=== PATIENT | male | born 1965 | race Caucasian/White ===

== ENCOUNTER → 2018-05-13 08:46 | Outpatient (CLI) | payer OTHER, SELFPAY ==
[2018-05-13 11:29] LABS: AST(SGOT) 30 U/L (15-37); Alanine Aminotransfer ALT/SGPT 68 U/L (16-61); Alkaline Phosphatase 60 U/L (45-117); Bilirubin, Direct 0.19 mg/dL (0.00-0.30); Cholesterol 160 mg/dL (200); Globulin 3.8 g/dL (2.2-4.2); High Density Lipoprotein 33 mg/dL; Protein, Total 7.8 g/dL (6.4-8.2); Triglycerides 116 mg/dL; Very Low Density Lipoprotein 23 mg/dL (5-40)
[2018-05-13 14:24] LABS: Thyroid Stim Hormone (TSH) 0.42 uIU/mL (0.358-3.74)
--- OUTSIDE RECORDS SUMMARY | 2018-06-24 21:43 | XMS RPT_ITS | Clinical Summary ---
:1965 Author Organization [facility], [facility] Address [address] [place] [id number] Phone Care Team Providers Name Role Phone MD Betsy, Oscar Lopez Unavailable [ ] Conditions or Problems Problem Name Problem Onset Status Entry Provider Comment Standard Annotate Code Date Date Description Dizziness R42 Active Oscar Lopez Dizziness and and (ICD-10-CM MD Betsy giddiness giddiness ) BODY MASS Z68.32 Active Oscar Lopez Body mass index INDEX (ICD-10-CM 07/07 07/07 MD Betsy (BMI) 32.0-32.9, 32.0-32.9 ) adult ADULT Seborrheic 747139503 Inactive Jd A Inflamed keratosis (SNOMED 07/28 08/[address] CT) DO keratosis Seborrheic 749179197 Inactive Jd A Inflamed keratosis (SNOMED 07/28 08/[address] Jalil [address]) DO keratosis Tobacco use 655972989 Active Jd A Tobacco user (SNOMED 07/28 07/[address]) DO Need for 783769800 Inactive Jd A Procedure needed prophylactic (SNOMED 07/28 07/[address]) DO against streptococcu s pneumoniae (Pneumococcu s) Screening, 797257981 Active Jd A Screening for colon cancer (SNOMED 07/11 07/[address]) DO neoplasm of colon Tendinitis, 889978004 Active Jd A Tendinitis of left hand (SNOMED 07/10 07/[address]) DO Skin lesion, 74371813 Active Jd A Disorder of skin abnormal (SNOMED 07/10 07/[address] [facility] [address]) DO Hypothyroidi 97762443 Active Jd A Iatrogenic sm, (SNOMED 07/10 07/10 [facility] hypothyroidism iatrogenic CT) DO ENCOUNTER 450138811 Inactive Yeny A Long-term drug FOR (SNOMED 09/15 09/15 Amanda RN therapy LONG-TERM CT) USE OF OTHER MEDICATIONS LONG-TERM 240468677 Active Yeny A Long-term drug (CURRENT) (SNOMED 07/07 07/07 Amanda RN therapy USE OF OTHER CT) MEDICATIONS ABNORMAL 778065559 Inactive Yeny A Electrocardiogra ELECTROCARDI (SNOMED 09/15 09/15 Amanda RN m abnormal OGRAM CT) Body Mass 037059467 Inactive Yeny A Finding of body Index (SNOMED 11/06 11/06 Amanda RN mass index 34.0-34.9, CT) adult Snoring 42865288 Active Jd A Snoring (SNOMED 06/24 06/[address] [facility] [address]) DO 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 (SNOMED M CT) FABIANA Yadav LONG-TERM 165201271 Inactive Shannon Long-term drug (CURRENT) (SNOMED 07/07 07/07 M therapy USE OF OTHER CT) Vicenta MCMAHON PA-C Family 111872221 Active Shannon FH: Raised blood History of (SNOMED 07/[address]) Vicenta booth PA-C Family 874059822 Active Shannon FH: Hypertension History of (SNOMED 07/[address]) FABIANA Yadav BODY MASS Z68.33 Inactive Shannon Body mass index INDEX (ICD-10-CM 07/07 07/07 M (BMI) 33.0-33.9, 33.0-33.9 ) Vicenta adult ADULT FABIANA Body Mass 569760279 Removed Clayton S Finding of body Index (SNOMED 11/06 11/06 MD Betsy mass index 34.0-34.9, CT) adult ENCOUNTER 620020975 Removed Precious S Long-term drug FOR (SNOMED 09/15 09/15 Pravin CONKLIN therapy LONG-TERM CT) USE OF OTHER MEDICATIONS ABNORMAL 497855545 Removed Precious S Electrocardiogra ELECTROCARDI (SNOMED 09/15 09/15 Pravin CONKLIN m abnormal OGRAM CT) PALPITATIONS 43754973 Active Precious S Palpitations (SNOMED 09/15 09/[address]) HYPERTENSION 0694531 9684/0 Active Precious S Benign essential , BENIGN (SNOMED 09/15 09/15 Pravin CONKLIN hypertension ESSENTIAL CT) HYPERLIPIDEM 65903062 Active Precious S Hyperlipidemia IA (SNOMED 09/15 09/[address]) Medications Medication Instructions Start Stop Generic Name NDC Provider Date Date CRESTOR 20 MG TABS One tablet by ROSUVASTATIN CALCIUM [id number] Oscar S mouth daily 08/12 MD Betsy HYDROCHLOROTHIAZIDE One tablet by HYDROCHLOROTHIAZIDE 31219120618 Oscar S 12.5 MG TABS mouth daily MD Betsy LISINOPRIL 20 MG One tablet by LISINOPRIL 91806968951 Clayton S TABS mouth daily 11/06 MD Betsy HYDROCHLOROTHIAZIDE One tablet by HYDROCHLOROTHIAZIDE 74012357317 Oscar S 25 MG TABS mouth daily MD Betsy LEVOTHYROXINE SODIUM One tablet by LEVOTHYROXINE SODIUM 24830166064 Jd A 137 MCG TABS mouth daily 03/03 [facility] CRESTOR 20 MG TABS One tablet by ROSUVASTATIN CALCIUM 54883394182 Shannon mouth daily 08/12 Real Yadav PA-C LISINOPRIL 20 MG One tablet by LISINOPRIL 02708342906 Clayton S TABS mouth daily 11/06 MD Betsy HYDROCHLOROTHIAZIDE One tablet by HYDROCHLOROTHIAZIDE 88469224072 Oscar S 25 MG TABS mouth daily MD Betsy LISINOPRIL 10 MG One tablet by LISINOPRIL 31258348524 Clayton S TABS mouth daily 11/06 MD Betsy INDERAL LA [id number] 160 mg 1 PROPRANOLOL HCL 99408313389 Clayton S capsule by 07/23 [id number] MD Betsy mouth daily CRESTOR 20 MG TABS One tablet by Clayton S (ROSUVASTATIN mouth daily 07/23 MD Betsy CALCIUM) LISINOPRIL 5 MG TABS One tablet by LISINOPRIL 13687116017 Oscar S mouth daily 11/21 MD Betsy LISINOPRIL 5 MG TABS One tablet by 2013/ LISINOPRIL 17086926428 Oscar S mouth daily 11/21 11/06 MD Betsy INDERAL LA 80 MG Two tablet by PROPRANOLOL HCL 94709870656 Precious S [id number] mouth daily 09/15 Pravin CONKLIN LISINOPRIL 5 MG TABS One tablet by LISINOPRIL 88488158532 Precious S mouth daily 09/15 Pravin CONKLIN LISINOPRIL 5 MG TABS One tablet by 2010/ LISINOPRIL 87927463013 Oscar S mouth daily 09/15 05/22 MD Betsy CRESTOR 10 MG TABS One tablet by ROSUVASTATIN CALCIUM 18081681862 Harini M mouth daily 02/23 [facility]er LISINOPRIL 2.5 MG One tablet by LISINOPRIL 65492257037 Yeny A TABS mouth daily 11/14 Amanda CONKLIN INDERAL LA [id number] 160 mg 1 2013/ PROPRANOLOL HCL 91693534174 Clayton S capsule by 07/23 11/06 [id number] MD Betsy mouth daily LEVOTHYROXINE SODIUM Patient to LEVOTHYROXINE SODIUM 45197021679 Clayton S 100 MCG TABS call in with 03/03 MD Betsy actual dose LEVOTHYROXINE SODIUM One tablet by LEVOTHYROXINE SODIUM 26396785927 Safia M 150 MCG TABS mouth daily 03/03 KATERIN Brush LISINOPRIL 20 MG One tablet by LISINOPRIL 97512601095 Shannon TABS mouth daily 11/06 M FABIANA Yadav HYDROCHLOROTHIAZIDE One tablet by HYDROCHLOROTHIAZIDE 91598308429 Shannon 25 MG TABS mouth daily M FABIANA Yadav Medications Administered No information available. Allergies, Adverse Reactions, Alerts Allergy Name Reaction Description Start Date Severity Status Provider BEE STINGS Moderate Active Shannon Yadav PA-C STATINS elevated liver enzymes Critical Active Precious Costello RN PENICILLIN Critical Active Precious Costello RN Results Date Name Value Unit Range Flag Description Replaced Document: [facility]mark ECG Observations EKG INTERP Sinus Rhythm WITHIN electrocardiogram interpretation NORMAL LIMITS EKG T AXIS 10 deg T wave axis, electrocardiogram EKG QRS AXIS -2 deg QRS axis, electrocardiogram EKG PWAVAXIS 38 deg P wave axis, electrocardiogram QRS INTERVAL 94 ms QRS duration, electrocardiogram QT INTERVAL new path ms QT interval, electrocardiogram [place] INTERVAL 154 ms [place] interval, electrocardiogram EKGHRTRATE 81 BPM heart rate on electrocardiogram Office Visit: [facility] CARD RSK GRP B cardiac risk group Lab Report: T4 Total, Thyroxin T4, TOTAL 11.3 ug/dL 4.5-12.1 thyroxine, serum, total Lab Report: Thyroid Peroxidase AB THY MICRO AB 7 0-34 thyroid microsomal antibody Lab Report: Thyroid Stim Immunoglob ZZ-GE-unk 37 % 0-139 GE use only - for LinkLogic import when terms are not otherwise specified Office Visit: [facility] CHD 10YR RSK 7 % General cardiovascular disease 10Y risk [#] Velva.D'Agostcecilia Lab Report: Thyroid Stim Hormone (TSH) TSH 0.13 u[iU]/mL 0.358-3.74 L thyroid stimulating hormone, serum Office Visit: Skin Lesion DIET HEAVY ANTI[employer]OR [employer] yes Dietary management education, guidance, and counseling (procedure) ORALTOBACUSE Current Tobacco smoking status NHIS SMOK STATUS Current every day smoker Tobacco use [facility] Nurse Visit: Hemoccult Results (negative) HEMOCCULT 3 negative Hemoglobin.gastrointestinal [Presence] in Stool --3rd specimen HEMOCCULT 2 negative Hemoglobin.gastrointestinal [Presence] in Stool --2nd specimen HEMOCCULT negative Hemoglobin.gastrointestinal [Presence] in Stool Rx Refill: eRx Request for Levothyroxine Sod 137mcg Tab [facility]_RR [id number]`Levothyroxine Sod B e-scripts 137mcg Tab```90 Each``TAKE ONE TABLET BY MOUTH messenger DAILY```0`05/20/2015`No date sent`[facility]*`[id number]``LEVOTHYROXINE request SODIUM 137 MCG TABLET Quantity: 90 Tablet Instructions: TAKE ONE TABLET BY MOUTH DAILY Office Visit MEDS REVIEW Done Documentation of current medications (procedure) Lab Report: Basic Metabolic Profile (BMP) ANION GAP 12 5-15 anion gap, serum CO2 27.0 mmol/L 21.0-32.0 carbon dioxide, venous blood CHLORIDE 99 mmol/L 98-107 chloride, serum POTASSIUM 3.4 mmol/L 3.5-5.1 L potassium, serum SODIUM 138 mmol/L 136-145 sodium, serum CALCIUM 8.9 mg/dL 8.5-10.1 calcium, serum BUN/CREAT 20.9 RATIO 10-20 H urea nitrogen/creatinine ratio, serum GFRAA 119 mL/min >60 Glomerular Filtration rate GFR EST 98 mL/min >60 estimated glomerular filtration rate CREATININE 0.86 mg/dL 0.70-1.30 creatinine, serum BUN 18 mg/dL 7-18 urea nitrogen, blood GLUCOSE SER 91 mg/dL 70-110 blood glucose Lab Report: Liver Profile BILI DIRECT 0.17 mg/dL 0.00-0.30 bilirubin, serum, direct BILI TOTAL 0.80 mg/dL 0.20-1.00 bilirubin, serum, total SGPT (ALT) 59 U/L 12-78 alanine aminotransferase (SGPT), serum ALK PHOS 59 U/L 45-117 alkaline phosphatase, serum SGOT (AST) 28 U/L 15-37 aspartate aminotransferase (SGOT), serum GLOBULIN TOT 4.0 g/dL 2.2-4.2 globulins, serum, total ALBUMIN 4.1 g/dL 3.4-5.0 albumin, serum PROTEIN, TOT 8.1 g/dL 6.4-8.2 protein, total, serum Lab Report: Lipid Profile VLDL 36 mg/dL 5-40 very low density lipoproteins LDL 145 mg/dL 0-130 H Cholesterol in LDL [Mass/volume] in Serum or Plasma HDL 38 mg/dL L Cholesterol in HDL [Mass/volume] in Serum or Plasma TRIGLYCRDES 179 mg/dL Triglyceride [Mass/volume] in Serum or Plasma CHOLESTEROL 219 mg/dL 200 H Cholesterol [Mass/volume] in Serum or Plasma Plan of Care Type Date Detail Appointment 08:45 AM Oscar Meyer MD, [address], [address], [place], [address], Appointment 08:30 AM Floyd Nunez NP, [address], [address], [place], [address], Referral Surgery Referral SHIRA PrestonF, [address] [place], [address] Referral Surgery Referral BREANNA Preston, [address] [place], [address] Referral ENT referral [facility], [address] [place] [address], [place], [address] Referral ENT referral [facility], [address] [facility], [place], [address] Pending order JHR Pending order *BMP Pending order *Lipid Profile CC PCP Pending order *Hepatic Function Panel Pending order *Hepatic Function Panel Pending order *Lipid Profile CC PCP Pending order 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 order Follow Up Appt 1 year Pending order *BMP Pending order *Hepatic Function Panel Pending order *Lipid Profile CC PCP Pending order *Hepatic Function Panel Pending order *Lipid Profile CC PCP Pending order *TSH Pending order *T4 free Pending order Administration Immunization >=8 years of age Pending order Excision Benign Lesion Trunk/Arm/Leg 1.1-2.0 cm Pending order *TSH Pending order 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 order Follow Up Appt 1 year Pending order *Hepatic Function Panel Pending order *Lipid Profile CC PCP Pending order *Hepatic Function Panel Pending order *Lipid Profile CC PCP Pending order 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 order Follow Up Appt 6 months Pending order US Thyroid (Soft tissue neck) Pending order *TSH Pending order *ATAB - Thyroglobulin Antibody Pending order *T4 free Pending order *T4 (Total) Pending order *T3-Total Pending order *TSIMM TSI Thyroid Stimulating Immunglob Pending order Thyroid Panel (T-3/T-4/TSH) Pending order *BMP Pending order MMM Pending order Follow Up Appt 6 weeks Pending order Follow Up Appt Other Pending order *Hepatic Function Panel Pending order *Lipid Profile CC PCP Pending order MMM Pending order Follow Up Appt 6 weeks Pending order MMM Pending order Follow Up Appt 6 months Pending order *Lipid Profile CC PCP Pending Order excluded from report: Pending order *Hepatic Function Panel Pending Order excluded from report: Pending order *Hepatic Function Panel Pending order *Lipid Profile CC PCP Pending order *Hepatic Function Panel Pending order *Lipid Profile CC PCP Pending order Follow Up Appt 1 year Pending order *Lipid Profile Pending order *Hepatic Function Panel Pending order Follow Up Appt 6 months Pending order *Lipid Profile Pending order *Hepatic Function Panel Patient education LOW%20FAT%20DIET Patient education HYPERLIPIDEMIA, HYPERTENSION%2C%20AMBULATORY%20CARE Procedures Code Procedure Name Date Entry Date 666-06 *BMP 93597-6 *Lipid Profile CC PCP 0788-1 *Hepatic Function Panel F/U PLATE TAKE OUT WORKER PLATE TAKE OUT WORKER FUA 1 year Follow Up Appt 1 year 0788-1 *Hepatic Function Panel 23517-5 *Lipid Profile CC PCP 0667-1 *BMP 3016-3 *TSH F/U PLATE TAKE OUT WORKER PLATE TAKE OUT WORKER FUA 1 year Follow Up Appt 1 year [id number] SNOMED-CT: 270671253614113 Current Medications Documented 0788-1 *Hepatic Function Panel 28405-7 *Lipid Profile CC PCP 88459-0 *Lipid Profile CC PCP 0788-1 *Hepatic Function Panel FUA 6 months Follow Up Appt 6 months F/U PLATE TAKE OUT WORKER PLATE TAKE OUT WORKER [id number] SNOMED-CT: 015016007 Smoking Cessation Counseling SCT-[id number] SNOMED-CT: 751597411347526 Current Medications Documented CPT-37812 US Thyroid (Soft tissue neck) 3016-3 *TSH 3024-7 *T4 free 3026-2 *T4 (Total) 3053-6 *T3-Total 8098-6 *ATAB - Thyroglobulin Antibody 81520-5 *TSIMM TSI Thyroid Stimulating Immunglob F/U Appt Follow Up Appt Other F/U MMM MMM FUA 6 weeks Follow Up Appt 6 weeks CPT-05565 Thyroid Panel (T-3/T-4/TSH) 0667-1 *BMP F/U MMM MMM FUA 6 weeks Follow Up Appt 6 weeks 0788-1 *Hepatic Function Panel 04998-4 *Lipid Profile CC PCP F/U MMM MMM FUA 6 months Follow Up Appt 6 months 45594-2 *Lipid Profile CC PCP Order excluded from report: 0788-1 *Hepatic Function Panel Order excluded from report: 0788-1 *Hepatic Function Panel 37898-7 *Lipid Profile CC PCP FUA 1 year Follow Up Appt 1 year 0788-1 *Hepatic Function Panel 93701-7 *Lipid Profile 0788-1 *Hepatic Function Panel 55975-8 *Lipid Profile FUA 6 months Follow Up Appt 6 months Vital Signs Date Name Value Unit Description BMI (Body Mass Index) 32.63 kg/m2 Body Mass Index [Ratio] BP Diastolic 80 mm[Hg] blood pressure, diastolic - 8462-4 BP Systolic 120 mm[Hg] blood pressure, systolic - 8480-6 BSA (Body Surface Area) 2.16 body surface area Heart Rate 88 /min pulse rate E&M - 8867-4 Respiratory Rate 20 /min respiratory rate E&M - 9279-1 Weight Measured 221.0 [lb_av] weight E&M - 3141-9 Body Temperature 98.1 [degF] temperature E&M BP Diastolic 88 mm[Hg] blood pressure, diastolic, supine BP Diastolic 90 mm[Hg] blood pressure, diastolic, standing BP Systolic 142 mm[Hg] blood pressure, systolic, supine E&M BP Systolic 142 mm[Hg] blood pressure, systolic, standing Height 69 [in_us] height E&M - 8302-2 Heart Rate 80 /min pulse rate, standing
--- OUTSIDE RECORDS SUMMARY | 2018-06-24 21:43 | XMS RPT_ITS | Clinical Summary ---
:1965 Author Organization [facility], [facility] Address [address] [place] [address] Phone Care Team Providers Name Role Phone MD Betsy, Oscar Lopez Unavailable [ ] Conditions or Problems Problem Name Problem Onset Status Entry Provider Comment Standard Annotate Code Date Date Description Dizziness 049861943 Active Oscar Lopez Dizziness and and (SNOMED MD Betsy giddiness giddiness CT) BODY MASS Z68.32 Active Oscar Lopez Body mass index INDEX (ICD-10-CM 07/07 07/07 MD Betsy (BMI) 32.0-32.9, 32.0-32.9 ) adult ADULT Seborrheic 896434142 Inactive Jd A Inflamed keratosis (SNOMED 07/28 08/[address] Jal[address] CT) DO keratosis Seborrheic 210273365 Inactive Jd A Inflamed keratosis (SNOMED 07/28 08/01 Jalil [address]) DO keratosis Tobacco use 351577278 Active Jd A Tobacco user (SNOMED 07/28 07/[address]) DO Need for 694493122 Inactive Jd A Procedure needed prophylactic (SNOMED 07/28 07/[address]) DO against streptococcu s pneumoniae (Pneumococcu s) Screening, 518183079 Active Jd A Screening for colon cancer (SNOMED 07/11 07/[address]) DO neoplasm of colon Tendinitis, 216108860 Active Jd A Tendinitis of left hand (SNOMED 07/10 07/[address]) DO Skin lesion, 90190875 Active Jd A Disorder of skin abnormal (SNOMED 07/10 07/10 [facility] CT) DO Hypothyroidi 29046468 Active Jd A Iatrogenic sm, (SNOMED 07/10 07/10 [facility] hypothyroidism iatrogenic CT) DO ENCOUNTER 087504335 Inactive Yeny A Long-term drug FOR (SNOMED 09/15 09/15 Amanda RN therapy LONG-TERM CT) USE OF OTHER MEDICATIONS LONG-TERM 393305084 Active Yeny A Long-term drug (CURRENT) (SNOMED 07/07 07/07 Amanda RN therapy USE OF OTHER CT) MEDICATIONS ABNORMAL 461122944 Inactive Yeny A Electrocardiogra ELECTROCARDI (SNOMED 09/15 09/15 Amanda RN m abnormal OGRAM CT) Body Mass 421721681 Inactive Yeny A Finding of body Index (SNOMED 11/06 11/06 Amanda RN mass index 34.0-34.9, CT) adult Snoring 82803811 Active Jd A Snoring (SNOMED 06/24 06/24 [facility] CT) DO 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 (SNOMED M CT) FBAIANA Yadav LONG-TERM 174924471 Inactive Shannon Long-term drug (CURRENT) (SNOMED 07/07 07/07 M therapy USE OF OTHER CT) Vicenta MCMAHON PA-C Family 393975792 Active Shannon FH: Raised blood History of (SNOMED 07/[address]) Vicenta booth PA-C Family 052853011 Active Shannon FH: Hypertension History of (SNOMED 07/[address]) FABIANA Yadav BODY MASS Z68.33 Inactive Shannon Body mass index INDEX (ICD-10-CM 07/07 07/07 M (BMI) 33.0-33.9, 33.0-33.9 ) Vicenta adult ADULT FABIANA Body Mass 523135048 Removed Oscar S Finding of body Index (SNOMED 11/06 11/06 MD Betsy mass index 34.0-34.9, CT) adult ENCOUNTER 332522455 Removed Precious S Long-term drug FOR (SNOMED 09/15 09/15 Pravin CONKLIN therapy LONG-TERM CT) USE OF OTHER MEDICATIONS ABNORMAL 305592900 Removed Precious S Electrocardiogra ELECTROCARDI (SNOMED 09/15 09/15 Pravin CONKLIN m abnormal OGRAM CT) PALPITATIONS 40138567 Active Precious S Palpitations (SNOMED 09/15 09/[address]) HYPERTENSION 7391475 8180/0 Active Precious S Benign essential , BENIGN (SNOMED 09/15 09/15 Pravin CONKLIN hypertension ESSENTIAL CT) HYPERLIPIDEM 11317352 Active Precious S Hyperlipidemia IA (SNOMED 09/15 09/[address]) Medications Medication Instructions Start Stop Generic Name NDC Provider Date Date CRESTOR 20 MG TABS One tablet by ROSUVASTATIN CALCIUM 81556195419 Oscar S mouth daily 08/12 MD Betsy HYDROCHLOROTHIAZIDE One tablet by HYDROCHLOROTHIAZIDE 76689841017 Normandy S 12.5 MG TABS mouth daily MD Betsy LISINOPRIL 20 MG One tablet by LISINOPRIL 21933596098 Oscar S TABS mouth daily 11/06 MD Betsy HYDROCHLOROTHIAZIDE One tablet by HYDROCHLOROTHIAZIDE 19939809454 Normandy S 25 MG TABS mouth daily MD Betsy LEVOTHYROXINE SODIUM One tablet by LEVOTHYROXINE SODIUM 07548444845 Jd A 137 MCG TABS mouth daily 03/03 [facility] CRESTOR 20 MG TABS One tablet by ROSUVASTATIN CALCIUM 85391729442 Shannon mouth daily 08/12 Real Yadav PA-C LISINOPRIL 20 MG One tablet by LISINOPRIL 16197990083 Normandy S TABS mouth daily 11/06 MD Betsy HYDROCHLOROTHIAZIDE One tablet by HYDROCHLOROTHIAZIDE 91053892636 Oscar S 25 MG TABS mouth daily MD Betsy LISINOPRIL 10 MG One tablet by LISINOPRIL 18585365139 Oscar S TABS mouth daily 11/06 MD Betsy INDERAL LA [id number] 160 mg 1 PROPRANOLOL HCL 44783855903 Oscar S capsule by 07/23 [id number] MD Betsy mouth daily CRESTOR 20 MG TABS One tablet by Normandy S (ROSUVASTATIN mouth daily 07/23 MD Betsy CALCIUM) LISINOPRIL 5 MG TABS One tablet by LISINOPRIL 20413946205 Normandy S mouth daily 11/21 MD Betsy LISINOPRIL 5 MG TABS One tablet by 2013/ LISINOPRIL 07778406965 Oscar S mouth daily 11/21 11/06 MD Betsy INDERAL LA 80 MG Two tablet by PROPRANOLOL HCL 03119118810 Precious S [id number] mouth daily 09/15 Pravin CONKLIN LISINOPRIL 5 MG TABS One tablet by LISINOPRIL 22706339888 Precious S mouth daily 09/15 Pravin CONKLIN LISINOPRIL 5 MG TABS One tablet by 2010/ LISINOPRIL 79847226861 Normandy S mouth daily 09/15 05/22 MD Betsy CRESTOR 10 MG TABS One tablet by ROSUVASTATIN CALCIUM 91350497023 Harini M mouth daily 02/23 Sims LISINOPRIL 2.5 MG One tablet by LISINOPRIL 89302951011 Yeny A TABS mouth daily 11/14 Amanda CONKLIN INDERAL LA [id number] 160 mg 1 2013/ PROPRANOLOL HCL 87930228204 Normandy S capsule by 07/23 11/06 [id number] MD Betsy mouth daily LEVOTHYROXINE SODIUM Patient to LEVOTHYROXINE SODIUM 64889427568 Normandy S 100 MCG TABS call in with 03/03 MD Betsy actual dose LEVOTHYROXINE SODIUM One tablet by LEVOTHYROXINE SODIUM 50823887625 Safia M 150 MCG TABS mouth daily 03/03 KATERIN Brush LISINOPRIL 20 MG One tablet by LISINOPRIL 64393733434 Shannon TABS mouth daily 11/06 M FABIANA Yadav HYDROCHLOROTHIAZIDE One tablet by HYDROCHLOROTHIAZIDE 70245575821 Shannon 25 MG TABS mouth daily M [...] INTERVAL new path ms QT interval, electrocardiogram HI INTERVAL 154 ms HI interval, electrocardiogram EKGHRTRATE 81 BPM heart rate on electrocardiogram Office Visit: [facility] CARD RSK GRP B cardiac risk group Lab Report: T4 Total, Thyroxin T4, TOTAL 11.3 ug/dL 4.5-12.1 thyroxine, serum, total Lab Report: Thyroid Peroxidase AB THY MICRO AB 7 0-34 thyroid microsomal antibody Lab Report: Thyroid Stim Immunoglob ZZ-GE-unk 37 % 0-139 GE use only - for LinkLogic import when terms are not otherwise specified Office Visit: [facility] CHD 10YR RSK 7 % General cardiovascular disease 10Y risk [#] [place].D'Agostcecilia Lab Report: Thyroid Stim Hormone (TSH) TSH 0.13 u[iU]/mL 0.358-3.74 L thyroid stimulating hormone, serum Office Visit: Skin Lesion DIET CHILD CARE yes Dietary management education, guidance, and counseling (procedure) ORALTOBACUSE Current Tobacco smoking status NHIS SMOK STATUS Current every day smoker Tobacco use [facility] Nurse Visit: Hemoccult Results (negative) HEMOCCULT 3 negative Hemoglobin.gastrointestinal [Presence] in Stool --3rd specimen HEMOCCULT 2 negative Hemoglobin.gastrointestinal [Presence] in Stool --2nd specimen HEMOCCULT negative Hemoglobin.gastrointestinal [Presence] in Stool Rx Refill: eRx Request for Levothyroxine Sod 137mcg Tab [facility]_RR [id number]`Levothyroxine Sod B e-scripts 137mcg Tab```90 Each``TAKE ONE TABLET BY MOUTH messenger DAILY```0`05/20/2015`No date sent`[facility] refill Pharm[facility]*`[id number]``LEVOTHYROXINE request SODIUM 137 MCG TABLET Quantity: 90 Tablet Instructions: TAKE ONE TABLET BY MOUTH DAILY Office Visit MEDS REVIEW Done Documentation of current medications (procedure) [facility] risk [facility] Lab Report: Basic Metabolic Profile (BMP) ANION [...] Plan of Care Type Date Detail Appointment 08:30 AM Floyd Nunez CHARRER, [address] [place], [address], [place], [address], Referral Surgery Referral BREANNA Preston, [address] [place], [address] Referral Surgery Referral BREANNA Preston, [address] [place], [address] Referral ENT referral [facility], [address] [place] [address], [address] Referral ENT referral [facility], [address] [place] [address], [place], [address] Pending order JHR Pending order *BMP Pending order *Lipid Profile CC PCP Pending order *Hepatic Function Panel Pending order *Hepatic Function Panel Pending order *Lipid Profile CC PCP Pending order 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 order Follow Up Appt 1 year Pending order *BMP Pending order *Hepatic Function Panel Pending order *Lipid Profile CC PCP Pending order *Hepatic Function Panel Pending order *Lipid Profile CC PCP Pending order *TSH Pending order *T4 free Pending order Administration Immunization >=8 years of age Pending order Excision Benign Lesion Trunk/Arm/Leg 1.1-2.0 cm Pending order *TSH Pending order 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 order Follow Up Appt 1 year Pending order *Hepatic Function Panel Pending order *Lipid Profile CC PCP Pending order *Hepatic Function Panel Pending order *Lipid Profile CC PCP Pending order 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 order Follow Up Appt 6 months [...] Procedures Code Procedure Name Date Entry Date 0667-1 *BMP 50165-5 *Lipid Profile CC PCP 0788-1 *Hepatic Function Panel F/U 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 FUA 1 year Follow Up Appt 1 year 0788-1 *Hepatic Function Panel 36796-7 *Lipid Profile CC PCP 0667-1 *BMP 3016-3 *TSH F/U 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 FUA 1 year Follow Up Appt 1 year SCT-[id number] SNOMED-CT: 972971711106731 Current Medications Documented 0788-1 *Hepatic Function Panel 53770-3 *Lipid Profile CC PCP 72462-3 *Lipid Profile CC PCP 0788-1 *Hepatic Function Panel FUA 6 months Follow Up Appt 6 months F/U 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 SCT-[id number] SNOMED-CT: 907182734 Smoking Cessation Counseling SCT-983202668812603 SNOMED-CT: 837049963027484 Current Medications Documented CPT-33572 US Thyroid (Soft tissue neck) 3016-3 *TSH 3024-7 *T4 free 3026-2 *T4 (Total) 3053-6 *T3-Total 8098-6 *ATAB - Thyroglobulin Antibody 64398-3 *TSIMM TSI Thyroid Stimulating Immunglob F/U Appt Follow Up Appt Other F/U MMM MMM FUA 6 weeks Follow Up Appt 6 weeks CPT-22961 Thyroid Panel (T-3/T-4/TSH) 0667-1 *BMP F/U MMM MMM FUA 6 weeks Follow Up Appt 6 weeks 0788-1 *Hepatic Function Panel 76413-1 *Lipid Profile CC PCP F/U MMM MMM FUA 6 months Follow Up Appt 6 months 13947-4 *Lipid Profile CC PCP Order excluded from report: 0788-1 *Hepatic Function Panel Order excluded from report: 0788-1 *Hepatic Function Panel 28986-4 *Lipid Profile CC PCP FUA 1 year Follow Up Appt 1 year 0788-1 *Hepatic Function Panel 51028-6 *Lipid Profile 0788-1 *Hepatic Function Panel 13228-9 *Lipid Profile FUA 6 months Follow Up Appt 6 months Vital Signs Date Name Value Unit Description BMI (Body Mass Index) 32.78 kg/m2 Body Mass Index [Ratio] BP Diastolic 90 mm[Hg] blood pressure, diastolic - 8462-4 BP Diastolic 92 mm[Hg] blood pressure, diastolic, supine BP Systolic 142 mm[Hg] blood pressure, systolic - 8480-6 BP Systolic 130 mm[Hg] blood pressure, systolic, supine E&M Heart Rate 92 /min pulse rate E&M - 8867-4 Height 69 [in_us] height E&M - 8302-2 Respiratory Rate 20 /min respiratory rate E&M - 9279-1 Weight Measured 222 [lb_av] weight E&M - 3141-9 BSA (Body Surface Area) 2.16 body surface area Body Temperature 98.1 [degF] temperature E&M BP Diastolic 90 mm[Hg] blood pressure, diastolic, standing BP Systolic 142 mm[Hg] blood pressure, systolic, standing Heart Rate 80 /min pulse rate, standing
--- OUTSIDE RECORDS SUMMARY | 2018-06-24 21:44 | XMS RPT_ITS | Clinical Summary ---
:1965 Author Organization [facility], [facility] Address [address] [place] [address] Phone Care Team Providers Name Role Phone Parag Moe Unavailable Conditions or Problems Problem Name Problem Onset Status Entry Provider Comment Standard Annotate Code Date Date Description Dizziness 309122035 Active Gaylord S Dizziness and and (SNOMED MD Betsy giddiness giddiness CT) BODY MASS Z68.32 Active Oscar Lopez Body mass index INDEX (ICD-10-CM 07/07 07/07 MD Betsy (BMI) 32.0-32.9, 32.0-32.9 ) adult ADULT Seborrheic 028153735 Inactive Jd A Inflamed keratosis (SNOMED 07/28 08/[address] Jalil [address] CT) DO keratosis Seborrheic 225086873 Inactive Jd A Inflamed keratosis (SNOMED 07/28 08/01 Jalil [address]ic inflamed CT) DO keratosis Tobacco use 908901510 Active Jd A Tobacco user (SNOMED 07/28 07/[address]) DO Need for 293036569 Inactive Jd A Procedure needed prophylactic (SNOMED 07/28 07/[address]) DO against streptococcu s pneumoniae (Pneumococcu s) Screening, 440471628 Active Jd A Screening for colon cancer (SNOMED 07/11 07/[address]) DO neoplasm of colon Tendinitis, 699615593 Active Jd A Tendinitis of left hand (SNOMED 07/10 07/[address]) DO Skin lesion, 80300111 Active Jd A Disorder of skin abnormal (SNOMED 07/10 07/10 [facility] CT) DO Hypothyroidi 07874684 Active Jd A Iatrogenic sm, (SNOMED 07/10 07/10 [facility] hypothyroidism iatrogenic CT) DO ENCOUNTER 367280381 Inactive Yeny A Long-term drug FOR (SNOMED 09/15 09/15 Amanda RN therapy LONG-TERM CT) USE OF OTHER MEDICATIONS LONG-TERM 794457777 Active Yeny A Long-term drug (CURRENT) (SNOMED 07/07 07/07 Amanda RN therapy USE OF OTHER CT) MEDICATIONS ABNORMAL 888149135 Inactive Yeny A Electrocardiogra ELECTROCARDI (SNOMED 09/15 09/15 Amanda RN m abnormal OGRAM CT) Body Mass 475653441 Inactive Yeny A Finding of body Index (SNOMED 11/06 11/06 Amanda RN mass index 34.0-34.9, CT) adult Snoring 71489382 Active Jd A Snoring (SNOMED 06/24 06/24 [facility] CT) DO Thyromegaly 7648088 Active Shannon Goiter (SNOMED M CT) FABIANA Yadav LONG-TERM 513568847 Inactive Shannon Long-term drug (CURRENT) (SNOMED 07/07 07/07 M therapy USE OF OTHER CT) Vicenta MCMAHON PA-C Family 674023094 Active Shannon FH: Raised blood History of (SNOMED 07/[address]) Vicenta booth PA-C Family 337482498 Active Shannon FH: Hypertension History of (SNOMED 07/[address]) FABIANA Yadav BODY MASS Z68.33 Inactive Shannon Body mass index INDEX (ICD-10-CM 07/07 07/07 M (BMI) 33.0-33.9, 33.0-33.9 ) Vicenta adult ADULT , FABIANA Body Mass 531934059 Removed Oscar Lopez Finding of body Index (SNOMED 11/06 11/06 MD Betsy mass index 34.0-34.9, CT) adult ENCOUNTER 449900843 Removed Precious S Long-term drug FOR (SNOMED 09/15 09/15 Pravin CONKLIN therapy LONG-TERM CT) USE OF OTHER MEDICATIONS ABNORMAL 815101031 Removed Precious S Electrocardiogra ELECTROCARDI (SNOMED 09/15 09/15 Pravin CONKLIN m abnormal OGRAM CT) PALPITATIONS 91497834 Active Precious S Palpitations (SNOMED 09/15 09/[address]) HYPERTENSION 8662680 7896/0 Active Precious S Benign essential , BENIGN (SNOMED 09/15 09/15 Pravin CONKLIN hypertension ESSENTIAL CT) HYPERLIPIDEM 67423322 Active Precious S Hyperlipidemia IA (SNOMED 09/15 09/[address]) Medications Medication Instructions Start Stop Generic Name NDC Provider Date Date CRESTOR 20 MG TABS One tablet by ROSUVASTATIN CALCIUM 39099547577 Gaylord S mouth daily 08/12 MD Betsy HYDROCHLOROTHIAZIDE One tablet by HYDROCHLOROTHIAZIDE 47192468323 Oscar S 12.5 MG TABS mouth daily MD Betsy LISINOPRIL 20 MG One tablet by LISINOPRIL 20633992600 Oscar S TABS mouth daily 11/06 MD Betsy HYDROCHLOROTHIAZIDE One tablet by HYDROCHLOROTHIAZIDE 94169423373 Gaylord S 25 MG TABS mouth daily MD Betsy LEVOTHYROXINE SODIUM One tablet by LEVOTHYROXINE SODIUM 88419188240 Jd A 137 MCG TABS mouth daily 03/03 [facility] CRESTOR 20 MG TABS One tablet by ROSUVASTATIN CALCIUM 15038474465 Shannon mouth daily 08/12 Real Yadav PA-C LISINOPRIL 20 MG One tablet by LISINOPRIL 69064707754 Oscar S TABS mouth daily 11/06 MD Betsy HYDROCHLOROTHIAZIDE One tablet by HYDROCHLOROTHIAZIDE 74011184634 Gaylord S 25 MG TABS mouth daily MD Betsy LISINOPRIL 10 MG One tablet by LISINOPRIL 72291733097 Gaylord S TABS mouth daily 11/06 MD Betsy INDERAL LA [id number] 160 mg 1 PROPRANOLOL HCL 75982489895 Gaylord S capsule by 07/23 [id number] MD Betsy mouth daily CRESTOR 20 MG TABS One tablet by Oscar S (ROSUVASTATIN mouth daily 07/23 MD Betsy CALCIUM) LISINOPRIL 5 MG TABS One tablet by LISINOPRIL 98387584458 Oscar S mouth daily 11/21 MD Betsy LISINOPRIL 5 MG TABS One tablet by 2013/ LISINOPRIL 15594971251 Oscar S mouth daily 11/21 11/06 MD Betsy INDERAL LA 80 MG Two tablet by PROPRANOLOL HCL 15106865339 Precious S [id number] mouth daily 09/15 Pravin CONKLIN LISINOPRIL 5 MG TABS One tablet by LISINOPRIL 75468410728 Precious S mouth daily 09/15 Pravin CONKLIN LISINOPRIL 5 MG TABS One tablet by 2010/ LISINOPRIL 91002193813 Gaylord S mouth daily 09/15 05/22 MD Betsy CRESTOR 10 MG TABS One tablet by ROSUVASTATIN CALCIUM 69457977755 Harini M mouth daily 02/23 Real LISINOPRIL 2.5 MG One tablet by LISINOPRIL 31543148357 Yeny A TABS mouth daily 11/14 Amanda CONKLIN INDERAL LA [id number] 160 mg 1 2013/ PROPRANOLOL HCL 33122029832 Gaylord S capsule by 07/23 11/06 [id number] MD Betsy mouth daily LEVOTHYROXINE SODIUM Patient to LEVOTHYROXINE SODIUM 88203866346 Gaylord S 100 MCG TABS call in with 03/03 MD Betsy actual dose LEVOTHYROXINE SODIUM One tablet by LEVOTHYROXINE SODIUM 07488912797 Safia M 150 MCG TABS mouth daily 03/03 KATERIN Brush LISINOPRIL 20 MG One tablet by LISINOPRIL 65132493514 Shannon TABS mouth daily 11/06 M FABIANA Yadav HYDROCHLOROTHIAZIDE One tablet by HYDROCHLOROTHIAZIDE 68876868892 Shannon 25 MG TABS mouth daily M [...] INTERVAL new path ms QT interval, electrocardiogram CA INTERVAL 154 ms CA interval, electrocardiogram EKGHRTRATE 81 BPM heart rate on electrocardiogram Office Visit: [facility] CARD RSK GRP B cardiac risk group Lab Report: T4 Total, Thyroxin T4, TOTAL 11.3 ug/dL 4.5-12.1 thyroxine, serum, total Lab Report: Thyroid Peroxidase AB THY MICRO AB 7 0-34 thyroid microsomal antibody Lab Report: Thyroid Stim Immunoglob ZZ-GE-unk 37 % 0-139 GE use only - for LinkLogic import when terms are not otherwise specified Office Visit: [facility] CHD 10YR RSK 7 % General cardiovascular disease 10Y risk [#] [place] Lab Report: Thyroid Stim Hormone (TSH) TSH 0.13 u[iU]/mL 0.358-3.74 L thyroid stimulating hormone, serum Office Visit: Skin Lesion 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 Dietary management education, guidance, and counseling (procedure) ORALTOBACUSE Current Tobacco smoking status NHIS SMOK STATUS Current every day smoker Tobacco use [facility] Nurse Visit: Hemoccult Results (negative) HEMOCCULT 3 negative Hemoglobin.gastrointestinal [Presence] in Stool --3rd specimen HEMOCCULT 2 negative Hemoglobin.gastrointestinal [Presence] in Stool --2nd specimen HEMOCCULT negative Hemoglobin.gastrointestinal [Presence] in Stool Rx Refill: eRx Request for Levothyroxine Sod 137mcg Tab [facility]_RR [id number]`Levothyroxine Sod B e-scripts 137mcg Tab```90 Each``TAKE ONE TABLET BY MOUTH messenger DAILY```0`05/20/2015`No date sent`[facility] refill Pharmacy*`[id number]``LEVOTHYROXINE request SODIUM 137 MCG TABLET Quantity: 90 Tablet Instructions: TAKE ONE TABLET BY MOUTH DAILY Office Visit MEDS REVIEW Done Documentation of current medications (procedure) FALLEDEL No Fall risk assessment Lab Report: Basic [...] Date Detail Appointment 08:30 AM Floyd Nunez VEST FINISHER, [address], [address], [place], [address], Referral Surgery Referral SHIRA PrestonF, [address] [place], [address] Referral Surgery Referral BREANNA Preston, [address] [place], [address] Referral ENT referral [facility], [address] [place] [address], [place], [address] Referral ENT referral [facility], [address] [place] [address], [place], [address] Pending order *Hepatic Function Panel Pending order *Lipid Profile CC PCP Pending order JHR Pending order *BMP Pending order *Lipid Profile CC PCP Pending order *Hepatic Function Panel Pending order *Hepatic Function Panel Pending order *Lipid Profile CC PCP Pending order GARNISHER Pending order Follow Up Appt 1 year Pending order *BMP Pending order *Hepatic Function Panel Pending order *Lipid Profile CC PCP Pending order *Hepatic Function Panel Pending order *Lipid Profile CC PCP Pending order *TSH Pending order *T4 free Pending order Administration Immunization >=8 years of age Pending order Excision Benign Lesion Trunk/Arm/Leg 1.1-2.0 cm Pending order *TSH Pending order GARNISHER Pending order Follow Up Appt 1 year Pending order *Hepatic Function Panel Pending order *Lipid Profile CC PCP Pending order *Hepatic Function Panel Pending order *Lipid Profile CC PCP Pending order GARNISHER Pending order Follow Up Appt 6 months [...] Procedure Name Date Entry Date 666-06 *BMP 68523-7 *Lipid Profile CC PCP 0788-1 *Hepatic Function Panel F/U JHR JHR 0788-1 *Hepatic Function Panel 23894-5 *Lipid Profile CC PCP F/U GARNISHER GARNISHER FUA 1 year Follow Up Appt 1 year 0788-1 *Hepatic Function Panel 22628-1 *Lipid Profile CC PCP 0667-1 *BMP 0788-1 *Hepatic Function Panel 68764-5 *Lipid Profile CC PCP 3016-3 *TSH F/U GARNISHER GARNISHER FUA 1 year Follow Up Appt 1 year SCT-[id number] SNOMED-CT: 746300631045538 Current Medications Documented 0788-1 *Hepatic Function Panel 90885-3 *Lipid Profile CC PCP 85389-6 *Lipid Profile CC PCP 0788-1 *Hepatic Function Panel FUA 6 months Follow Up Appt 6 months F/U GARNISHER GARNISHER SCT-392273975 SNOMED-CT: 991487046 Smoking Cessation Counseling SCT-726448436808459 SNOMED-CT: 506208872744374 Current Medications Documented CPT-26373 US Thyroid (Soft tissue neck) 3016-3 *TSH 3024-7 *T4 free 3026-2 *T4 (Total) 3053-6 *T3-Total 8098-6 *ATAB - Thyroglobulin Antibody 38408-5 *TSIMM TSI Thyroid Stimulating Immunglob F/U Appt Follow Up Appt Other F/U MMM MMM FUA 6 weeks Follow Up Appt 6 weeks CPT-67948 Thyroid Panel (T-3/T-4/TSH) 0667-1 *BMP F/U MMM MMM FUA 6 weeks Follow Up Appt 6 weeks 0788-1 *Hepatic Function Panel 18694-3 *Lipid Profile CC PCP F/U MMM MMM FUA 6 months Follow Up Appt 6 months 93402-9 *Lipid Profile CC PCP Order excluded from report: 0788-1 *Hepatic Function Panel Order excluded from report: 0788-1 *Hepatic Function Panel 73200-2 *Lipid Profile CC PCP FUA 1 year Follow Up Appt 1 year 0788-1 *Hepatic Function Panel 68431-4 *Lipid Profile 0788-1 *Hepatic Function Panel 67475-6 *Lipid Profile FUA 6 months Follow Up [...]
--- OUTSIDE RECORDS SUMMARY | 2018-06-24 21:44 | XMS RPT_ITS | Clinical Summary ---
:1965 Author Organization [facility], [facility] Address [address] [place] [address] Phone Care Team Providers Name Role Phone Parag Moe Unavailable Conditions or Problems Problem Name Problem Onset Status Entry Provider Comment Standard Annotate Code Date Date Description Dizziness 084470266 Active Clinton S Dizziness and and (SNOMED MD Betsy giddiness giddiness CT) BODY MASS Z68.32 Active Oscar Lopez Body mass index INDEX (ICD-10-CM 07/07 07/07 MD Betsy (BMI) 32.0-32.9, 32.0-32.9 ) adult ADULT Seborrheic 225360162 Inactive Jd A Inflamed keratosis (SNOMED 07/28 08/[address]al[address] CT) DO keratosis Seborrheic 993957181 Inactive Jd A Inflamed keratosis (SNOMED 07/28 08/[address] Jalil [address]) DO keratosis Tobacco use 225038007 Active Jd A Tobacco user (SNOMED 07/28 07/[address]) DO Need for 489444093 Inactive Jd A Procedure needed prophylactic (SNOMED 07/28 07/[address]) DO against streptococcu s pneumoniae (Pneumococcu s) Screening, 192450705 Active Jd A Screening for colon cancer (SNOMED 07/11 07/[address]) DO neoplasm of colon Tendinitis, 343950227 Active Jd A Tendinitis of left hand (SNOMED 07/10 07/[address]) DO Skin lesion, 26105550 Active Jd A Disorder of skin abnormal (SNOMED 07/10 07/10 [facility] CT) DO Hypothyroidi 40810436 Active Jd A Iatrogenic sm, (SNOMED 07/10 07/10 [facility] hypothyroidism iatrogenic CT) DO ENCOUNTER 395921261 Inactive Yeny A Long-term drug FOR (SNOMED 09/15 09/15 Amanda RN therapy LONG-TERM CT) USE OF OTHER MEDICATIONS LONG-TERM 076448006 Active Yeny A Long-term drug (CURRENT) (SNOMED 07/07 07/07 Amanda RN therapy USE OF OTHER CT) MEDICATIONS ABNORMAL 715212921 Inactive Yeny A Electrocardiogra ELECTROCARDI (SNOMED 09/15 09/15 Amanda RN m abnormal OGRAM CT) Body Mass 573881287 Inactive Yeny A Finding of body Index (SNOMED 11/06 11/06 Amanda RN mass index 34.0-34.9, CT) adult Snoring 12926210 Active Jd A Snoring (SNOMED 06/24 06/[address] [facility] [address]) DO Thyromegaly 8679797 Active Shannon Goiter (SNOMED M CT) FABIANA Yadav LONG-TERM 335962591 Inactive Shannon Long-term drug (CURRENT) (SNOMED 07/07 07/07 M therapy USE OF OTHER CT) Vicenta MCMAHON PA-C Family 681640253 Active Shannon FH: Raised blood History of (SNOMED 07/[address]) Vicenta booth PA-C Family 502155348 Active Shannon FH: Hypertension History of (SNOMED 07/[address]) FABIANA Yadav BODY MASS Z68.33 Inactive Shannon Body mass index INDEX (ICD-10-CM 07/07 07/07 M (BMI) 33.0-33.9, 33.0-33.9 ) Vicenta adult ADULT , FABIANA Body Mass 810805793 Removed Oscar Lopez Finding of body Index (SNOMED 11/06 11/06 MD Betsy mass index 34.0-34.9, CT) adult ENCOUNTER 157756472 Removed Precious S Long-term drug FOR (SNOMED 09/15 09/15 Pravin CONKLIN therapy LONG-TERM CT) USE OF OTHER MEDICATIONS ABNORMAL 269320433 Removed Precious S Electrocardiogra ELECTROCARDI (SNOMED 09/15 09/15 Pravin CONKLIN m abnormal OGRAM CT) PALPITATIONS 61316709 Active Precious S Palpitations (SNOMED 09/15 09/[address]) HYPERTENSION 7690538 8590/0 Active Precious S Benign essential , BENIGN (SNOMED 09/15 09/15 Pravin [address] hypertension ESSENTIAL CT) HYPERLIPIDEM 35398905 Active Precious S Hyperlipidemia IA (SNOMED 09/15 09/[address]) Medications Medication Instructions Start Stop Generic Name NDC Provider Date Date CRESTOR 20 MG TABS One tablet by ROSUVASTATIN CALCIUM [id number] Clinton S mouth daily 08/12 MD Betsy HYDROCHLOROTHIAZIDE One tablet by HYDROCHLOROTHIAZIDE 22030857802 Oscar S 12.5 MG TABS mouth daily MD Betsy LISINOPRIL 20 MG One tablet by LISINOPRIL 65183762959 Oscar S TABS mouth daily 11/06 MD Betsy HYDROCHLOROTHIAZIDE One tablet by HYDROCHLOROTHIAZIDE 10087099876 Clinton S 25 MG TABS mouth daily MD Betsy LEVOTHYROXINE SODIUM One tablet by LEVOTHYROXINE SODIUM 57046889801 Jd A 137 MCG TABS mouth daily 03/03 [facility] CRESTOR 20 MG TABS One tablet by ROSUVASTATIN CALCIUM 19572906863 Shannon mouth daily 08/12 Real Yadav PA-C LISINOPRIL 20 MG One tablet by LISINOPRIL 92604011130 Oscar S TABS mouth daily 11/06 MD Betsy HYDROCHLOROTHIAZIDE One tablet by HYDROCHLOROTHIAZIDE 09056638659 Clinton S 25 MG TABS mouth daily MD Betsy LISINOPRIL 10 MG One tablet by LISINOPRIL 66182415104 Clinton S TABS mouth daily 11/06 MD Betsy INDERAL LA [id number] 160 mg 1 PROPRANOLOL HCL 85858649538 Clinton S capsule by 07/23 [id number] MD Betsy mouth daily CRESTOR 20 MG TABS One tablet by Oscar S (ROSUVASTATIN mouth daily 07/23 MD Betsy CALCIUM) LISINOPRIL 5 MG TABS One tablet by LISINOPRIL 54486106923 Oscar S mouth daily 11/21 MD Betsy LISINOPRIL 5 MG TABS One tablet by 2013/ LISINOPRIL 62114895880 Oscar S mouth daily 11/21 11/06 MD Betsy INDERAL LA 80 MG Two tablet by PROPRANOLOL HCL 51641737982 Precious S [id number] mouth daily 09/15 Pravin CONKLIN LISINOPRIL 5 MG TABS One tablet by LISINOPRIL 43365347245 Precious S mouth daily 09/15 Pravin CONKLIN LISINOPRIL 5 MG TABS One tablet by 2010/ LISINOPRIL 21047675677 Clinton S mouth daily 09/15 05/22 MD Betsy CRESTOR 10 MG TABS One tablet by ROSUVASTATIN CALCIUM 57815175294 Harini M mouth daily 02/23 Real LISINOPRIL 2.5 MG One tablet by LISINOPRIL 84999349569 Yeny A TABS mouth daily 11/14 Amanda CONKLIN INDERAL LA [id number] 160 mg 1 2013/ PROPRANOLOL HCL 21470602826 Clinton S capsule by 07/23 11/06 [id number] MD Betsy mouth daily LEVOTHYROXINE SODIUM Patient to LEVOTHYROXINE SODIUM 64063022784 Clinton S 100 MCG TABS call in with 03/03 MD Betsy actual dose LEVOTHYROXINE SODIUM One tablet by LEVOTHYROXINE SODIUM 69526035266 Safia M 150 MCG TABS mouth daily 03/03 KATERIN Brush LISINOPRIL 20 MG One tablet by LISINOPRIL 68290901844 Shannon TABS mouth daily 11/06 M FABIANA Yadav HYDROCHLOROTHIAZIDE One tablet by HYDROCHLOROTHIAZIDE 22419310871 Shannon 25 MG TABS mouth daily M [...] INTERVAL new path ms QT interval, electrocardiogram SD INTERVAL 154 ms SD interval, electrocardiogram EKGHRTRATE 81 BPM heart rate on electrocardiogram Office Visit: [facility] CARD RSK GRP B cardiac risk group Lab Report: T4 Total, Thyroxin T4, TOTAL 11.3 ug/dL 4.5-12.1 thyroxine, serum, total Lab Report: Thyroid Peroxidase AB THY MICRO AB 7 0-34 thyroid microsomal antibody Lab Report: Thyroid Stim Immunoglob ZZ-GE-unk 37 % 0-139 GE use only - for LinkLogic import when terms are not otherwise specified Office Visit: [facility] CHD 10YR RSK 7 % General cardiovascular disease 10Y risk [#] [place] Lab Report: Thyroid Stim Hormone (TSH) TSH 0.13 u[iU]/mL 0.358-3.74 L thyroid stimulating hormone, serum 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 Nurse Visit: Hemoccult Results (negative) HEMOCCULT 3 negative Hemoglobin.gastrointestinal [Presence] in Stool --3rd specimen HEMOCCULT 2 negative Hemoglobin.gastrointestinal [Presence] in Stool --2nd specimen HEMOCCULT negative Hemoglobin.gastrointestinal [Presence] in Stool Rx Refill: eRx Request for Levothyroxine Sod 137mcg Tab [facility]_RR [id number]`Levothyroxine Sod B e-scripts 137mcg Tab```90 Each``TAKE ONE TABLET BY MOUTH messenger DAILY```0`05/20/2015`No date sent`[facility] refill Pharmacy*`[id number]``LEVOTHYROXINE request SODIUM 137 MCG TABLET Quantity: 90 [...] Date Detail Appointment 08:30 AM Floyd Nunez BUTTON GRADER, [address], [address], [place], [address], Referral Surgery Referral SHIRA [facility], [address] [place], [address] Referral Surgery Referral BREANNA Preston, [address] [place], [address] Referral ENT referral [facility], [address] [place] [address], [place], [address] Referral ENT referral [facility], [address] [place] [address], [place], [address] Pending order *Hepatic Function Panel Pending order *Lipid Profile CC PCP Pending order JHR Pending order *BMP Pending order *Lipid Profile CC PCP Pending order *Hepatic Function Panel Pending order *Hepatic Function Panel Pending order *Lipid Profile CC PCP Pending order 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 Follow Up Appt 1 year Pending order *BMP Pending order *Hepatic Function Panel Pending order *Lipid Profile CC PCP Pending order *Hepatic Function Panel Pending order *Lipid Profile CC PCP Pending order *TSH Pending order *T4 free Pending order Administration Immunization >=8 years of age Pending order Excision Benign Lesion Trunk/Arm/Leg 1.1-2.0 cm Pending order *TSH Pending order 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 Follow Up Appt 1 year Pending order *Hepatic Function Panel Pending order *Lipid Profile CC PCP Pending order *Hepatic Function Panel Pending order *Lipid Profile CC PCP Pending order 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 Follow Up Appt 6 months [...] Procedure Name Date Entry Date 666-06 *BMP 17689-3 *Lipid Profile CC PCP 0788-1 *Hepatic Function Panel F/U JHR JHR 0788-1 *Hepatic Function Panel 03824-3 *Lipid Profile CC PCP F/U 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 FUA 1 year Follow Up Appt 1 year 0788-1 *Hepatic Function Panel 46304-4 *Lipid Profile CC PCP 0667-1 *BMP 0788-1 *Hepatic Function Panel 34077-6 *Lipid Profile CC PCP 3016-3 *TSH F/U 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 FUA 1 year Follow Up Appt 1 year [id number] SNOMED-CT: 832701835975743 Current Medications Documented 0788-1 *Hepatic Function Panel 96533-9 *Lipid Profile CC PCP 06088-7 *Lipid Profile CC PCP 0788-1 *Hepatic Function Panel FUA 6 months Follow Up Appt 6 months F/U 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 SCT-[id number] SNOMED-CT: 293813849 Smoking Cessation Counseling SCT-[id number] SNOMED-CT: 332961718602856 Current Medications Documented CPT-64070 US Thyroid (Soft tissue neck) 3016-3 *TSH 3024-7 *T4 free 3026-2 *T4 (Total) 3053-6 *T3-Total 8098-6 *ATAB - Thyroglobulin Antibody 48505-7 *TSIMM TSI Thyroid Stimulating Immunglob F/U Appt Follow Up Appt Other F/U MMM MMM FUA 6 weeks Follow Up Appt 6 weeks CPT-33679 Thyroid Panel (T-3/T-4/TSH) 0667-1 *BMP F/U MMM MMM FUA 6 weeks Follow Up Appt 6 weeks 0788-1 *Hepatic Function Panel 63374-8 *Lipid Profile CC PCP F/U MMM MMM FUA 6 months Follow Up Appt 6 months 85592-9 *Lipid Profile CC PCP Order excluded from report: 0788-1 *Hepatic Function Panel Order excluded from report: 0788-1 *Hepatic Function Panel 67617-5 *Lipid Profile CC PCP FUA 1 year Follow Up Appt 1 year 0788-1 *Hepatic Function Panel 76150-4 *Lipid Profile 0788-1 *Hepatic Function Panel 06535-8 *Lipid Profile FUA 6 months Follow Up [...]
--- OUTSIDE RECORDS SUMMARY | 2018-06-24 21:44 | XMS RPT_ITS ---
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 [place] [address] OFFICE VISIT Date of Service: 05/13/18 MR#: [id number] Acct: [id number] Name: LAMONT VEE Rep #: [id number] : 1965 Provider: Oscar Meyer MD Age/Sex: 53/M Location: [facility] Status: Signed HPI HPI Chief Complaint: Follow up Details: LAMONT VEE, is a 53 M who presents to the office today for a follow-up visit. He is a gentleman with a history of hypertension hyperlipidemia who also underwent thyroid surgery. He returns for routine follow-up visit. On his last visit he had complained of some dizziness when he got up quickly from the seated position he had his diuretics altered and he says that it has improved significantly. He has had no further dizziness or diaphoresis no near syncope or syncope he has been compliant with all his medications. His physical exam today demonstrates clear lung frias regular rate and rhythm and no pedal edema. 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: No Accompanied by: none Is patient in pain?: No Allergies Penicillins Allergy (Verified 05/13/18 13:15) Unknown Medications lisinopril 20 mg tablet 20 mg PO QDAY #90 tab 07/02/17 [Rx Confirmed 05/13/18] levothyroxine 137 mcg tablet 137 mcg PO DAILY 04/03/18 [History Confirmed 05/13/18] hydrochlorothiazide 12.5 mg tablet 12.5 mg PO DAILY #90 tab 04/11/18 [Rx Confirmed 05/13/18] rosuvastatin 20 mg tablet 20 mg PO DAILY #90 tab 04/11/18 [Rx Confirmed 05/13/18] [facility] Medical History Dizziness (Chronic) Pure hypercholesterolemia (Chronic) Essential (primary) hypertension (Chronic) Anxiety (Chronic) Surgical History History of thyroidectomy (Resolved) History of tonsillectomy (Resolved) Family History Father Hypertension Son Hypertension Sister Hyperlipemia Social History Smoking Status: Former smoker ROS Const Const: Negative for fatigue, weakness, night sweats, excessive sweating, frequent falls, headache(s) or daytime sleepiness Eyes Eyes: Negative for loss of peripheral vision, transient loss of vision, blind spots, double vision or blurry vision ENT ENT: Negative for headache(s), dizziness, balance problems, Nosebleed/epistaxis, tongue swelling or lip swelling Cardio Chest Pain: No Palpitations: No Edema: None Muscle aches with walking: None Resp Respiratory: Negative for SOB at rest, SOB orthopnea\SOB lying down, Cough, paroxysmal nocturnal dyspnea or SOB with activity GI GI: Negative nausea, vomiting, heartburn, black,tarry stools or bright, red blood in stools : Negative for hematuria Musc Musc: Negative for balance problems, muscle aches/ myalgia, muscle weakness or joint pain Skin Skin: Negative non-healing lesions, unusual bruising or rash Neuro Neuro: Negative for weakness, frequent falls, headache(s), double vision, dizziness, lightheadedness, orthostatic symptoms, blurry vision or lack of coordination Jonathan Hematologic/Lymphatic: Negative for easy bruising or easy bleeding Endo Endo: Negative for fatigue, excessive sweating, cold intolerance, heat intolerance, increased thirst/drinking or hair loss Psych Psych: Negative for anxiety or depression Allergy Allergy/Immunology: Negative for throat swelling, Negative for tongue swelling, Negative for hives, Negative for rash, Negative for lip swelling Cardiology Exam Const Appearance: cooperative, healthy appearing, well developed, well groomed and no acute distress Nutritional Appearance: well nourished and average body habitus Orientation: alert, awake and oriented x3 Head Head: normal to inspection, normocephalic and atraumatic Ears: hearing grossly normal bilaterally and external ears normal Nose: external nose normal, nasal mucous membranes and turbinates normal, nares normal, septum normal, no nasal discharge Face and Sinus: face symmetric Mouth: oral mucosae normal, tongue normal, oropharynx normal and moist mucous membranes Teeth and gingiva: dentition normal Throat: posterior oropharynx normal, tonsils normal and uvula midline Eyes General: appearance normal, both eyes and all related structures Eyelids: eyelids normal Conjunctivae: conjunctivae normal Pupils: PERRL, normal by confrontation and accommodation normal EOM: EOM intact bilaterally Neck Neck: normal visual inspection, trachea midline and no JVD JVD: +5 Carotids: normal carotid upstroke and bounding pulses Chest Chest inspection: normal inspection of the chest, symmetric chest movement and normal respiratory effort Auscultation: Bilateral: Clear to Auscultation Cardio Palpation: normal PMI Rate: regular rate Rhythm: regular rhythm Heart sounds: S1 normal, S2 normal and normal, physiologic split S2; negative rub, gallop or murmur GI GI: normal to inspection, soft, no hepatosplenomegaly and bowel sounds present Neuro General: alert, awake, oriented x3, no focal sensory deficit, gait normal and moves all extremities Skin Skin: no rashes or lesions noted Extremities Pulses: Normal: Right Femoral Pulse, Left Femoral Pulse, Right Dorsalis Pedis Pulse, Left Dorsalis Pedis Pulse, Right Posterior Tibial Pulse, Left Posterior Tibial Pulse, Right Radial Pulse, Left Radial Pulse Lower Extremity Edema: None: Bilateral Musculoskel Musculoskeletal: No joint tenderness Psych Psychological: normal affect Assessment AND Plan 1. Essential (primary) hypertension I10 Plan His blood pressure appears to be under good control on the current medical therapy he will remain on the lisinopril as well as the low-dose of hydrochlorothiazide. No other changes will be made with regard to this. 2. Pure hypercholesterolemia E78.00 Plan He does have a history of hyperlipidemia. His most recent lipid profile performed this morning demonstrated total cholesterol 160, LDL of 104, HDL 33 and triglycerides 116. No changes were made he is not had any side effects from the above medications. Thank you for allowing me to participate in his care. 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) Coding Level of Care Code Off vis,est,level 3 Diagnoses Essential (primary) hypertension I10 Pure hypercholesterolemia E78.00 Coding Level of Care Code Off vis,est,level 3 Diagnoses Essential (primary) hypertension I10 Pure hypercholesterolemia E78.00 05/13/18 1337 <Electronically signed by Oscar Meyer MD> Date Oscar Meyer MD Cosigner Signature: Date (if applicable) CC: Joshua Purcell MD LIVER PROFILE Collected: 05/13/2018 Status: F Source: [place] 8:55 AM [facility] [place] TYPE CODE TESTS RESULT OUT OF RANGE REFERENCE UNITS LAB L501.1500 6.4-8.2 g/dL Normal T PROT 7.8 LAB L501.1800 3.2-5.0 g/dL Normal ALB 4.0 LAB L501.1950 2.2-4.2 g/dL Normal GLOB 3.8 LAB L501.4100 15-37 U/L Normal AST 30 LAB L501.4305 45-117 U/L Normal ALK P 60 LAB L501.4405 16-61 U/L High ALT 68 LAB L501.4600 0.20-1.00 mg/dL Normal T BILI 0.80 LAB L501.4700 0.00-0.30 mg/dL Normal D BILI 0.19 Performed By: #### L500.3400, L500.4100 #### [facility] [address] [place], [address] LIPID PROFILE Collected: 05/13/2018 Status: F Source: [place] 8:55 AM [facility] [place] TYPE CODE TESTS RESULT OUT OF RANGE REFERENCE UNITS LAB L501.4900 200 mg/dL Normal CHOL 160 Result Comment: <200 mg/dL Desirable 200-240 mg/dL Borderline >240 mg/dL High Risk LAB L501.5000 mg/dL Normal TRIG 116 Result Comment: The drugs N-Acetylcysteine and Metamizole may falsely depress this assay. Serum Triglycerides Reference Interval Normal <150 mg/dL Borderline high 150 - 199 mg/dL High 200 - 499 mg/dL Very High > or = 500 mg/dL LAB L501.6400 mg/dL Low HDL 33 Result Comment: The drugs N-Acetylcysteine and Metamizole may falsely depress this assay. Reference Range HDL <40 mg/dL Low HDL Cholesterol HDL >or= 60 mg/dL High HDL Cholesterol LAB L501.6500 0-130 mg/dL Normal LDL 104 LAB L501.6600 5-40 mg/dL Normal VLDL 23 Performed By: #### L500.3400, L500.4100 #### [facility] [address] [place], [address] THYROID STIM HORMONE Collected: 05/13/2018 Status: F Source: [place] (TSH) 8:55 AM [facility] [place] Order Comment: PLEASE ADD TSH TO BLOOD FROM THIS MORNING TYPE CODE TESTS RESULT OUT OF RANGE REFERENCE UNITS LAB L501.9520 0.358-3.74 uIU/mL Normal TSH 0.42 Performed By: #### L501.9520 #### [facility] [address] [facility] [place], [address] ALLERGIES ALLERGIES DATE TYPE / CODE NAME / CODE REACTION SEVERITY SOURCE 05/13/2018 Drug Penicillins/ Unknown Unknown [facility] Allergy/4160 [id number]( Hospital [address](SNOMED XNORM) Repository CT) ENCOUNTERS ENCOUNTERS ADMIT/DISCHARGE ACCOUNT ADMITTING ENCOUNTER LOCATION SOURCE NUMBER CLASS 05/16/2018 [id number] Ambulatory [facility] 7 [facility] ing:LAB.FUTUR Repository E 05/13/2018/ [id number] Ambulatory BMSBuilding:B [facility] 8 2 [facility] Repository 05/13/2018 [id number] Ambulatory [facility] [place] 8 [facility] ing:LAB Repository PAYERS PAYERS ENCOUNTER GUARANTOR PAYER SUBSCRIBER SOURCE 05/16/2018 LAMONT Ashley Primary LAMONT Nicholas [id number] Insurance:Spring COMERB: [facility] [place]: [id number] [id number] Repository [address]Yeh: (330) Date:7985-67-44PL [phone] () RHONDA SOLO [address]GG: 05/16/2018 Secondary NOT GIVENUNK [place] Insurance:SELF PAY [facility] Number: Effective Repository Date:2018-05-16 05/13/2018 LAMONT [id number] N Insurance:CIGNAPolicy [place]: [facility] Number: [id number], [place] [id number] Repository [address]Ros: (330) Date:2870-34-06ZZ [phone] () [place]ZW[place], [place] [address]OY: 05/13/2018 Secondary NOT GIVENUNK [place] Insurance:SELF PAY [facility] Number: Effective Repository Date:2018-05-13 05/13/2018 LAMONT [id number] N Insurance:CIGNAPolicy [place]: [facility] Number: [id number], [place] [id number] Repository [address]Dxi: (330) Date:1176-37-45HD [phone] () 334500[place]UVO[place], [place] [address]NS: 05/13/2018 Secondary NOT GIVENUNK [facility] Insurance:SELF PAY [facility] Number: Effective Repository Date:2018-05-13
--- OUTSIDE RECORDS SUMMARY | 2018-06-24 21:44 | XMS RPT_ITS | Clinical Summary ---
:[address] [facility], [facility] Address [address] [place] [id number] Phone Care Team Providers Name Role Phone Nae Reyes Conditions or Problems Problem Name Problem Onset Status Entry Provider Comment Standard Annotate Code Date Date Description Dizziness R42 Active Oscar Lopez Dizziness and and (ICD-10-CM MD Betsy giddiness giddiness ) BODY MASS Z68.32 Active Oscar Lopez Body mass index INDEX (ICD-10-CM 07/07 07/07 MD Betsy (BMI) 32.0-32.9, 32.0-32.9 ) adult ADULT Seborrheic 487730959 Inactive Jd A Inflamed keratosis (SNOMED 07/28 08/[address] Jal[address] CT) DO keratosis Seborrheic 122012919 Inactive Jd A Inflamed keratosis (SNOMED 07/28 08/01 Jalil [address]) DO keratosis Tobacco use 409978644 Active Jd A Tobacco user (SNOMED 07/28 07/[address]) DO Need for 543050345 Inactive Jd A Procedure needed prophylactic (SNOMED 07/28 07/[address]) DO against streptococcu s pneumoniae (Pneumococcu s) Screening, 609652944 Active Jd A Screening for colon cancer (SNOMED 07/11 07/[address]) DO neoplasm of colon Tendinitis, 960669708 Active Jd A Tendinitis of left hand (SNOMED 07/10 07/[address]) DO Skin lesion, 00927333 Active Jd A Disorder of skin abnormal (SNOMED 07/10 07/[address] [facility] [address]) DO Hypothyroidi 54562160 Active Jd A Iatrogenic sm, (SNOMED 07/10 07/10 [facility] hypothyroidism iatrogenic CT) DO ENCOUNTER 713962709 Inactive Yeny A Long-term drug FOR (SNOMED 09/15 09/15 Amanda RN therapy LONG-TERM CT) USE OF OTHER MEDICATIONS LONG-TERM 711912399 Active Yeny A Long-term drug (CURRENT) (SNOMED 07/07 07/07 Amanda RN therapy USE OF OTHER CT) MEDICATIONS ABNORMAL 971611988 Inactive Yeny A Electrocardiogra ELECTROCARDI (SNOMED 09/15 09/15 Amanda RN m abnormal OGRAM CT) Body Mass 416605082 Inactive Yeny A Finding of body Index (SNOMED 11/06 11/06 Amanda RN mass index 34.0-34.9, CT) adult Snoring 14988328 Active Jd A Snoring (SNOMED 06/24 06/[address] [facility] [address]) DO Thyromegaly 5019737 Active Shannon Goiter (SNOMED M CT) FABIANA Yadav LONG-TERM 015702815 Inactive Shannon Long-term drug (CURRENT) (SNOMED 07/07 07/07 M therapy USE OF OTHER CT) Vicenta MCMAHON PA-C Family 945942300 Active Shannon FH: Raised blood History of (SNOMED 07/[address]) Vicenta booth PA-C Family 153666805 Active Shannon FH: Hypertension History of (SNOMED 07/[address]) FABIANA Yadav BODY MASS Z68.33 Inactive Shannon Body mass index INDEX (ICD-10-CM 07/07 07/07 M (BMI) 33.0-33.9, 33.0-33.9 ) Vicenta adult ADULT FABIANA Body Mass 560742455 Removed Oscar S Finding of body Index (SNOMED 11/06 11/06 MD Betsy mass index 34.0-34.9, CT) adult ENCOUNTER 358204856 Removed Precious S Long-term drug FOR (SNOMED 09/15 09/15 Pravin CONKLIN therapy LONG-TERM CT) USE OF OTHER MEDICATIONS ABNORMAL 993302793 Removed Precious S Electrocardiogra ELECTROCARDI (SNOMED 09/15 09/15 Pravin CONKLIN m abnormal OGRAM CT) PALPITATIONS 98999907 Active Precious S Palpitations (SNOMED 09/15 09/[address]) HYPERTENSION 0825699 9831/0 Active Precious S Benign essential , BENIGN (SNOMED 09/15 09/15 Pravin CONKLIN hypertension ESSENTIAL CT) HYPERLIPIDEM 72463493 Active Precious S Hyperlipidemia IA (SNOMED 09/15 09/[address]) Medications Medication Instructions Start Stop Generic Name NDC Provider Date Date CRESTOR 20 MG TABS One tablet by ROSUVASTATIN CALCIUM [id number] Lacona S mouth daily 08/12 MD Betsy HYDROCHLOROTHIAZIDE One tablet by HYDROCHLOROTHIAZIDE 41297703802 Oscar S 12.5 MG TABS mouth daily MD Betsy LISINOPRIL 20 MG One tablet by LISINOPRIL 67856031023 Lacona S TABS mouth daily 11/06 MD Betsy HYDROCHLOROTHIAZIDE One tablet by HYDROCHLOROTHIAZIDE 14275093577 Oscar S 25 MG TABS mouth daily MD Betsy LEVOTHYROXINE SODIUM One tablet by LEVOTHYROXINE SODIUM 20860958248 Jd A 137 MCG TABS mouth daily 03/03 [facility] CRESTOR 20 MG TABS One tablet by ROSUVASTATIN CALCIUM 04567150015 Shannon mouth daily 08/12 Real Yadav PA-C LISINOPRIL 20 MG One tablet by LISINOPRIL 14489778670 Oscar S TABS mouth daily 11/06 MD Betsy HYDROCHLOROTHIAZIDE One tablet by HYDROCHLOROTHIAZIDE 11519898336 Oscar S 25 MG TABS mouth daily MD Betsy LISINOPRIL 10 MG One tablet by LISINOPRIL 93255874792 Oscar S TABS mouth daily 11/06 MD Betsy INDERAL LA [id number] 160 mg 1 PROPRANOLOL HCL 79630606708 Oscar S capsule by 07/23 [id number] MD Betsy mouth daily CRESTOR 20 MG TABS One tablet by Lacona S (ROSUVASTATIN mouth daily 07/23 MD Betsy CALCIUM) LISINOPRIL 5 MG TABS One tablet by LISINOPRIL 62665308615 Lacona S mouth daily 11/21 MD Betsy LISINOPRIL 5 MG TABS One tablet by 2013/ LISINOPRIL 46305607514 Lacona S mouth daily 11/21 11/06 MD Betsy INDERAL LA 80 MG Two tablet by PROPRANOLOL HCL 86012273945 Precious S [id number] mouth daily 09/15 Pravin CONKLIN LISINOPRIL 5 MG TABS One tablet by LISINOPRIL 32562080281 Precious S mouth daily 09/15 Pravin CONKLIN LISINOPRIL 5 MG TABS One tablet by 2010/ LISINOPRIL 56775534427 Lacona S mouth daily 09/15 05/22 MD Betsy CRESTOR 10 MG TABS One tablet by ROSUVASTATIN CALCIUM 24284600937 Harini M mouth daily 02/23 Real LISINOPRIL 2.5 MG One tablet by LISINOPRIL 37865038160 Yeny A TABS mouth daily 11/14 Amanda CONKLIN INDERAL LA [id number] 160 mg 1 2013/ PROPRANOLOL HCL 67268970564 Oscar S capsule by 07/23 11/06 [id number] MD Betsy mouth daily LEVOTHYROXINE SODIUM Patient to LEVOTHYROXINE SODIUM 26363803743 Oscar S 100 MCG TABS call in with 03/03 MD Betsy actual dose LEVOTHYROXINE SODIUM One tablet by LEVOTHYROXINE SODIUM 58178922423 Safia M 150 MCG TABS mouth daily 03/03 KATERIN Brush LISINOPRIL 20 MG One tablet by LISINOPRIL 24253780889 Shannon TABS mouth daily 11/06 M FABIANA Yadav HYDROCHLOROTHIAZIDE One tablet by HYDROCHLOROTHIAZIDE 34391558551 Shannon 25 MG TABS mouth daily M [...] INTERVAL new path ms QT interval, electrocardiogram AL INTERVAL 154 ms AL interval, electrocardiogram EKGHRTRATE 81 BPM heart rate on electrocardiogram Office Visit: [facility] CARD RSK GRP B cardiac risk group Lab Report: T4 Total, Thyroxin T4, TOTAL 11.3 ug/dL 4.5-12.1 thyroxine, serum, total Lab Report: Thyroid Peroxidase AB THY MICRO AB 7 0-34 thyroid microsomal antibody Lab Report: Thyroid Stim Immunoglob ZZ-GE-[id number] 37 % 0-139 GE use only - for LinkLogic import when terms are not otherwise specified Office Visit: [facility] CHD 10YR RSK 7 % General cardiovascular disease 10Y risk [#] [place].D'Agost[facility] Lab Report: Thyroid Stim Hormone (TSH) TSH 0.13 u[iU]/mL 0.358-3.74 L thyroid stimulating hormone, serum Office Visit: Skin Lesion 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 yes Dietary management education, guidance, and counseling (procedure) ORALTOBACUSE Current Tobacco smoking status NHIS SMOK STATUS Current every day smoker Tobacco use [facility] Nurse Visit: Hemoccult Results (negative) HEMOCCULT 3 negative Hemoglobin.gastrointestinal [Presence] in Stool --3rd specimen HEMOCCULT 2 negative Hemoglobin.gastrointestinal [Presence] in Stool --2nd specimen HEMOCCULT negative Hemoglobin.gastrointestinal [Presence] in Stool Rx Refill: eRx Request for Levothyroxine Sod 137mcg Tab [facility]_RR [id number]`Levothyroxine Sod B e-scripts 137mcg Tab```90 Each``TAKE ONE TABLET BY MOUTH messenger DAILY```0`05/20/2015`No date sent`[facility] [place] refill Pharmacy*`[id number]``LEVOTHYROXINE request SODIUM 137 MCG TABLET Quantity: 90 Tablet Instructions: TAKE ONE TABLET BY MOUTH DAILY Office Visit MEDS REVIEW Done Documentation of current medications (procedure) Lab Report: Liver Profile BILI DIRECT 0.20 mg/dL 0.00-0.30 bilirubin, serum, direct BILI TOTAL 1.00 mg/dL 0.20-1.00 bilirubin, serum, total SGPT (ALT) 63 U/L 12-78 alanine aminotransferase (SGPT), serum ALK PHOS 60 U/L 50-136 alkaline phosphatase, serum SGOT (AST) 33 U/L 15-37 aspartate aminotransferase (SGOT), serum GLOBULIN TOT 3.7 g/dL 2.3-3.5 H globulins, serum, total ALBUMIN 4.0 g/dL 3.4-5.0 albumin, serum PROTEIN, TOT 7.7 g/dL 6.4-8.2 protein, total, serum Lab Report: Lipid Profile VLDL 24 mg/dL 5-40 very low density lipoproteins LDL 76 mg/dL 0-130 Cholesterol in LDL [Mass/volume] in Serum or Plasma HDL 36 mg/dL L Cholesterol in HDL [Mass/volume] in Serum or Plasma TRIGLYCRDES 121 mg/dL Triglyceride [Mass/volume] in Serum or Plasma CHOLESTEROL 136 mg/dL 200 Cholesterol [Mass/volume] in Serum or Plasma Lab Report: Basic Metabolic Profile (BMP) ANION [...] GLUCOSE SER 91 mg/dL 70-110 blood glucose Plan of Care Type Date Detail Appointment 08:45 AM Oscar Meyer MD, [address], [address], [place], [address], Appointment 08:30 AM Floyd Nunez NP, [address], [address], [place], [address], Referral Surgery Referral SHIRA PrestonF, [address] [place], [address] Referral Surgery Referral BREANNA Preston, [address] [place], [address] Referral ENT referral [facility], [address] [place] [address], [place], [address] Referral ENT referral [facility], [address] [facility], [place], [address] Pending order JHR Pending order *BMP Pending order *Lipid Profile CC PCP Pending order *Hepatic Function Panel Pending order *Hepatic Function Panel Pending order *Lipid Profile CC PCP Pending order SILK WEAVER Pending order Follow Up Appt 1 year Pending order *BMP Pending order *Hepatic Function Panel Pending order *Lipid Profile CC PCP Pending order *Hepatic Function Panel Pending order *Lipid Profile CC PCP Pending order *TSH Pending order *T4 free Pending order Administration Immunization >=8 years of age Pending order Excision Benign Lesion Trunk/Arm/Leg 1.1-2.0 cm Pending order *TSH Pending order SILK WEAVER Pending order Follow Up Appt 1 year Pending order *Hepatic Function Panel Pending order *Lipid Profile CC PCP Pending order *Hepatic Function Panel Pending order *Lipid Profile CC PCP Pending order SILK WEAVER Pending order Follow Up Appt 6 months [...] Procedures Code Procedure Name Date Entry Date 666-1 *BMP 68296-5 *Lipid Profile CC PCP 0788-1 *Hepatic Function Panel F/U SILK WEAVER SILK WEAVER FUA 1 year Follow Up Appt 1 year 0788-1 *Hepatic Function Panel 81610-1 *Lipid Profile CC PCP 0667-1 *BMP 3016-3 *TSH F/U SILK WEAVER SILK WEAVER FUA 1 year Follow Up Appt 1 year SCT-[id number] SNOMED-CT: 489421703706926 Current Medications Documented 0788-1 *Hepatic Function Panel 29167-1 *Lipid Profile CC PCP 28184-3 *Lipid Profile CC PCP 0788-1 *Hepatic Function Panel FUA 6 months Follow Up Appt 6 months F/U SILK WEAVER SILK WEAVER [id number] SNOMED-CT: 813155332 Smoking Cessation Counseling SCT-[id number] SNOMED-CT: 071903556644576 Current Medications Documented CPT-04645 US Thyroid (Soft tissue neck) 3016-3 *TSH 3024-7 *T4 free 3026-2 *T4 (Total) 3053-6 *T3-Total 8098-6 *ATAB - Thyroglobulin Antibody 62835-9 *TSIMM TSI Thyroid Stimulating Immunglob F/U Appt Follow Up Appt Other F/U MMM MMM FUA 6 weeks Follow Up Appt 6 weeks CPT-31445 Thyroid Panel (T-3/T-4/TSH) 0667-1 *BMP F/U MMM MMM FUA 6 weeks Follow Up Appt 6 weeks 0788-1 *Hepatic Function Panel 85631-1 *Lipid Profile CC PCP F/U MMM MMM FUA 6 months Follow Up Appt 6 months 53514-0 *Lipid Profile CC PCP Order excluded from report: 0788-1 *Hepatic Function Panel Order excluded from report: 0788-1 *Hepatic Function Panel 21553-2 *Lipid Profile CC PCP FUA 1 year Follow Up Appt 1 year 0788-1 *Hepatic Function Panel 49837-8 *Lipid Profile 0788-1 *Hepatic Function Panel 44122-0 *Lipid Profile FUA 6 months Follow Up [...]
== END ==
PROVIDERS: Referring Provider Internal Medicine Cardiovascular Disease; Visit Provider Internal Medicine Cardiovascular Disease
DX: I10 Essential (primary) hypertension (principal); E78.00 Pure hypercholesterolemia, unspecified
CPT/HCPCS: 36415; 80061; 80076; 84443

== ENCOUNTER → 2019-01-08 09:53 | Outpatient (CLI) | payer OTHER, SELFPAY ==
[2018-05-13 13:14] VITALS: BMI 32.8
[2019-01-08 12:47] LABS: ALB/GLOB Ratio 1.3 RATIO (0.9-2.4); AST(SGOT) 34 U/L (15-37); Alanine Aminotransfer ALT/SGPT 77 U/L (16-61); Albumin, Serum 4.2 g/dL (3.2-5.0); Alkaline Phosphatase 69 U/L (45-117); Anion Gap 11 (5-15); BUN 21 mg/dL (7-18); BUN/Creat Ratio 26.3 RATIO (10-20); Chloride 99 mmol/L (98-107); Cholesterol 142 mg/dL (200); EST Glomerular Filtration Rate 107 mL/min (>60); Est Glom Filt Rate - Afr Amer 129 mL/min (>60); Globulin 3.3 g/dL (2.2-4.2); Glucose 86 mg/dL (74-106); High Density Lipoprotein 37 mg/dL; PSA,Total - Annual Screen 1.72 ng/mL (0.00-4.00); Protein, Total 7.5 g/dL (6.4-8.2); Sodium Level 138 mmol/L (136-145); T4 Free Direct 1.44 ng/dL (0.76-1.46); Thyroid Stim Hormone (TSH) 0.16 uIU/mL (0.358-3.74); Triglycerides 137 mg/dL; Very Low Density Lipoprotein 27 mg/dL (5-40)
== END ==
PROVIDERS: Family Provider Family Medicine; PCP Family Medicine; Referring Provider Family Medicine; Visit Provider Family Medicine
DX: E78.5 Hyperlipidemia, unspecified (principal); E03.9 Hypothyroidism, unspecified; Z12.5 Encounter for screening for malignant neoplasm of prostate
CPT/HCPCS: 36415; 80053; 80061; 84153; 84439; 84443; G0103

== ENCOUNTER → 2019-05-29 08:31 | Outpatient (CLI) | payer OTHER, SELFPAY ==
[2019-05-19 08:26] VITALS: BMI 32.8
[2019-05-29 09:16] LABS: AST(SGOT) 26 U/L (15-37); Alanine Aminotransfer ALT/SGPT 60 U/L (16-61); Albumin, Serum 4.1 g/dL (3.2-5.0); Alkaline Phosphatase 58 U/L (45-117); Bilirubin, Direct 0.16 mg/dL (0.00-0.30); Cholesterol 129 mg/dL (200); Globulin 3.6 g/dL (2.2-4.2); High Density Lipoprotein 34 mg/dL; Protein, Total 7.7 g/dL (6.4-8.2); Triglycerides 117 mg/dL; Very Low Density Lipoprotein 23 mg/dL (5-40)
== END ==
PROVIDERS: Family Provider Family Medicine; PCP Family Medicine; Referring Provider Internal Medicine Cardiovascular Disease; Visit Provider Internal Medicine Cardiovascular Disease
DX: E78.00 Pure hypercholesterolemia, unspecified (principal); I10 Essential (primary) hypertension
CPT/HCPCS: 36415; 80061; 80076

== ENCOUNTER → 2020-05-26 06:03 | Outpatient (CLI) | payer OTHER, SELFPAY ==
[2019-05-19 08:26] VITALS: BMI 32.8
[2020-05-26 08:02] LABS: ALB/GLOB Ratio 1.1 RATIO (0.9-2.4); AST(SGOT) 27 U/L (15-37); Alanine Aminotransfer ALT/SGPT 66 U/L (16-61); Albumin, Serum 3.8 g/dL (3.2-5.0); Alkaline Phosphatase 56 U/L (45-117); Anion Gap 7 (5-15); BUN 24 mg/dL (7-18); BUN/Creat Ratio 28.3 RATIO (10-20); Calcium,Total 8.5 mg/dL (8.5-10.1); Chloride 105 mmol/L (98-107); Cholesterol 134 mg/dL (200); Creatinine, Serum 0.85 mg/dL (0.70-1.30); EST Glomerular Filtration Rate 99 mL/min (>60); Est Glom Filt Rate - Afr Amer 120 mL/min (>60); Globulin 3.6 g/dL (2.2-4.2); Glucose 86 mg/dL (74-106); High Density Lipoprotein 34 mg/dL; PSA,Total - Annual Screen 2.19 ng/mL (0.00-4.00); Potassium 3.8 mmol/L (3.5-5.1); Protein, Total 7.4 g/dL (6.4-8.2); Sodium Level 139 mmol/L (136-145); Thyroid Stim Hormone (TSH) 0.62 uIU/mL (0.358-3.74); Triglycerides 93 mg/dL; Very Low Density Lipoprotein 19 mg/dL (5-40)
== END ==
PROVIDERS: PCP Family Medicine; Referring Provider Family Medicine; Visit Provider Family Medicine
DX: E78.5 Hyperlipidemia, unspecified (principal); E03.9 Hypothyroidism, unspecified; Z12.5 Encounter for screening for malignant neoplasm of prostate
CPT/HCPCS: 36415; 80053; 80061; 84153; 84443; G0103

== ENCOUNTER → 2021-01-05 08:38 | Outpatient (CLI) | payer OTHER, SELFPAY ==
[2019-05-19 08:26] VITALS: BMI 32.8
[2021-01-05 10:36] LABS: ALB/GLOB Ratio 1.2 RATIO (0.9-2.4); AST(SGOT) 39 U/L (15-37); Alanine Aminotransfer ALT/SGPT 86 U/L (16-61); Albumin, Serum 4.2 g/dL (3.2-5.0); Alkaline Phosphatase 60 U/L (45-117); Anion Gap 8 (5-15); BUN 19 mg/dL (7-18); BUN/Creat Ratio 22.9 RATIO (10-20); Calcium,Total 8.6 mg/dL (8.5-10.1); Chloride 101 mmol/L (98-107); Cholesterol 126 mg/dL (200); Creatinine, Serum 0.83 mg/dL (0.70-1.30); EST Glomerular Filtration Rate 101 mL/min (>60); Est Glom Filt Rate - Afr Amer 122 mL/min (>60); Globulin 3.5 g/dL (2.2-4.2); Glucose 92 mg/dL (74-106); High Density Lipoprotein 33 mg/dL; Potassium 3.7 mmol/L (3.5-5.1); Protein, Total 7.7 g/dL (6.4-8.2); Sodium Level 136 mmol/L (136-145); Thyroid Stim Hormone (TSH) 0.11 uIU/mL (0.358-3.74); Triglycerides 98 mg/dL; Very Low Density Lipoprotein 20 mg/dL (5-40)
== END ==
PROVIDERS: PCP Family Medicine; Referring Provider Family Medicine; Visit Provider Family Medicine
DX: E78.5 Hyperlipidemia, unspecified (principal); E03.9 Hypothyroidism, unspecified; R79.89 Other specified abnormal findings of blood chemistry
CPT/HCPCS: 36415; 80053; 80061; 84443

== ENCOUNTER 2021-07-25 08:17 | Outpatient (CLI) | payer OTHER, SELFPAY | END 2021-07-25 23:59 | disposition home or self-care (01) | LOC: MFPLAB 08:19 | PROVIDERS: PCP Family Medicine; Referring Provider Family Medicine; Visit Provider Family Medicine | DX: E03.9 Hypothyroidism, unspecified (principal) | CPT/HCPCS: 36415; 84443 ==

== ENCOUNTER → 2022-01-08 | Outpatient (CLI) | payer OTHER, SELFPAY ==
[2022-01-08 10:53] LABS: AST(SGOT) 29 U/L (15-37); Alanine Aminotransfer ALT/SGPT 51 U/L (16-61); Albumin, Serum 3.7 g/dL (3.2-5.0); Alkaline Phosphatase 50 U/L (45-117); Anion Gap 9 (5-15); BUN 15 mg/dL (7-18); BUN/Creat Ratio 18.1 RATIO (10-20); Calcium,Total 8.5 mg/dL (8.5-10.1); Chloride 104 mmol/L (98-107); Cholesterol 143 mg/dL (200); Creatinine, Serum 0.83 mg/dL (0.70-1.30); EST Glomerular Filtration Rate 101 mL/min (>60); Est Glom Filt Rate - Afr Amer 122 mL/min (>60); Globulin 3.8 g/dL (2.2-4.2); Glucose 94 mg/dL (74-106); High Density Lipoprotein 36 mg/dL; Protein, Total 7.5 g/dL (6.4-8.2); Sodium Level 135 mmol/L (136-145); Thyroid Stim Hormone (TSH) 1.25 uIU/mL (0.358-3.74); Triglycerides 138 mg/dL; Very Low Density Lipoprotein 28 mg/dL (5-40)
== END | disposition home or self-care (01) ==
PROVIDERS: PCP Family Medicine; Referring Provider Family Medicine; Visit Provider Family Medicine
DX: E78.5 Hyperlipidemia, unspecified (principal); E03.9 Hypothyroidism, unspecified
CPT/HCPCS: 36415; 80053; 80061; 84443

== ENCOUNTER → 2022-07-26 | Outpatient (CLI) | payer OTHER, SELFPAY ==
[2022-07-26 09:13] LABS: Bacteria 0 SEEN /hpf (None Seen); Mucous, Urine 0 SEEN /hpf (<or=2+); Red Blood Cells-Urine 0 SEEN /hpf (0-5); Squamous Epithelial Cells - UA 0 SEEN /hpf (0-5); White Blood Cells 0 SEEN /hpf (0-5)
[2022-07-26 11:34] LABS: ALB/GLOB Ratio 1.1 RATIO (0.9-2.4); AST(SGOT) 33 U/L (15-37); Alanine Aminotransfer ALT/SGPT 58 U/L (16-61); Albumin, Serum 3.8 g/dL (3.2-5.0); Alkaline Phosphatase 45 U/L (45-117); Anion Gap 9 (5-15); BUN 20 mg/dL (7-18); BUN/Creat Ratio 19.4 RATIO (10-20); Calcium,Total 8.7 mg/dL (8.5-10.1); Chloride 101 mmol/L (98-107); Cholesterol 113 mg/dL (200); Creatinine, Serum 1.03 mg/dL (0.70-1.30); EST Glomerular Filtration Rate 79 mL/min (>60); Est Glom Filt Rate - Afr Amer 95 mL/min (>60); Globulin 3.5 g/dL (2.2-4.2); Glucose 98 mg/dL (74-106); High Density Lipoprotein 36 mg/dL; PSA,Total - Annual Screen 1.92 ng/mL (0.00-4.00); Potassium 3.8 mmol/L (3.5-5.1); Protein, Total 7.3 g/dL (6.4-8.2); Sodium Level 137 mmol/L (136-145); Thyroid Stim Hormone (TSH) 1.91 uIU/mL (0.358-3.74); Triglycerides 103 mg/dL; Very Low Density Lipoprotein 21 mg/dL (5-40)
[2022-07-26 18:10] LABS: Color, Urine Yellow (Yellow); Glucose, Dipstick Normal (Normal); Ketone-Dipstick Negative (Negative); Leukocyte Esterase-Dipstick Negative /ul (Negative); Nitrite-Dipstick Negative (Negative); Occult Blood-Urine Negative /ul (Negative); Protein-Dipstick Negative (Negative); Urine Bilirubin Dipstick Negative (Negative); Urine Clarity Clear (Clear); Urine Urobilinogen 1 mg/dl (Normal)
[2022-07-26 18:29] LABS: Microalbumin,Random Urine 8.6 mg/L (NO RANGE EST.)
== END | disposition home or self-care (01) ==
PROVIDERS: PCP Family Medicine; Referring Provider Family Medicine; Visit Provider Family Medicine
DX: Z00.00 Encounter for general adult medical examination without abnormal findings (principal); E78.5 Hyperlipidemia, unspecified; E03.9 Hypothyroidism, unspecified; Z12.5 Encounter for screening for malignant neoplasm of prostate; Z91.030 Bee allergy status
CPT/HCPCS: 36415; 80053; 80061; 81001; 82043; 84153; 84443; G0103

== ENCOUNTER 2023-06-06 08:40 | Observation (INO) | payer OTHER, SELFPAY ==
[2023-06-06] VITALS (17 sets, daily range): BP systolic 95–133; BP diastolic 67–98; PULSE 7–220; RESP 12–22; TEMP 36.4–37.1; O2SAT 95–98; BMI 34.0; BMI 33.4
[2023-06-06] MEDS: Adenosine 6 MG/2 ML Syringe IV (08:52)
[2023-06-06] MEDS: Adenosine 6 MG/2 ML Syringe 12 MG IV (08:56)
--- NOTE | 2023-06-06 09:01 | EKG12_ITS ---
Test Reason : DYSRHYTHMIA Blood Pressure : / mmHG Vent. Rate : 210 BPM Atrial Rate : 000 BPM P-R Int : 000 ms QRS Dur : 074 ms QT Int : 220 ms P-R-T Axes : 000 -31 044 degrees QTc Int : 411 ms Critical Test Result: High HR Supraventricular tachycardia Left axis deviation Possible Inferior infarct , age undetermined Abnormal ECG Confirmed by JOON ARCHIBALD MD ([id number]), editor in chief newspaper SHANE TOLBERT ([id number]) on 06/07/2023 1:56:50 PM Referred By: RANI Confirmed By:JOON ARCHIBALD MD
[2023-06-06 09:08] LABS: Absolute Lymphocyte Count 4.37 X10^3/uL (0.83-4.51); Absolute Neutrophil Count 5.9 X10^3/uL (2.0-7.7); Basophil# 0.17 X10^3/uL; Basophil% 1.4 % (0-1); Eosinophil# 0.42 X10^3/uL; Eosinophils% 3.5 % (0-5); Hematocrit 49.7 % (40-54); Hemoglobin 17.1 g/dL (13.0-16.5); Lymphocyte # 4.37 X10^3/ul (0.83-4.51); Lymphocyte % 36.3 % (19-41); Mean Corp Hgb Conc 34.4 g/dL (32-36); Mean Corpuscular Hgb 30.4 pg (27.0-32.0); Mean Corpuscular Volume 88.3 fL (80-94); Mean Platelet Vol. 8.8 fl (6.2-12.0); Monocyte# 1.12 X10^3/uL; Monocyte% 9.3 % (0-10); NRBC Flagged by Analyzer 0 % (0-5); Neutrophil # 5.88 X10^3/uL (2.7-7.7); Neutrophil % 48.8 % (47-70); Platelet Count 287 K/mm3 (150-450); RBC Distribution Width SD 42.1 fl (35.1-43.9); Red Blood Count 5.63 M/mm3 (4.6-6.2)
[2023-06-06] MEDS: 0.9% Normal Saline (1000mL) 1,000 ML 150 ML IV (09:09)
[2023-06-06] MEDS: Aspirin 81 MG TAB.CHEW 324 MG PO (09:09)
--- NOTE | 2023-06-06 09:15 | EKG12_ITS ---
Test Reason : POST MEDS Blood Pressure : / mmHG Vent. Rate : 116 BPM Atrial Rate : 116 BPM P-R Int : 158 ms QRS Dur : 088 ms QT Int : 320 ms P-R-T Axes : 048 -32 036 degrees QTc Int : 444 ms Sinus tachycardia Left axis deviation Abnormal ECG Confirmed by DRAGAN WALLACE, JOON ([id number]), news copy editor SHANE TOLBERT ([id number]) on 06/07/2023 1:56:34 PM Referred By: RANI Confirmed By:JOON ARCHIBALD MD
--- NOTE | 2023-06-06 09:16 | EDS_ITS ---
HPI History of Present Illness Chief Complaint: Palpitations Informant: patient Narrative Narrative: Patient is 58-year-old male with remote history of what sounds like SVT, hypothyroidism (status post thyroidectomy), hypertension hyperlipidemia presenting with heart racing sensation. Patient states he got in the shower this morning and felt uncomfortable in his chest. Initially thought maybe was having anxiety attack because he does have a history of that. He continued to feel unwell. He denies any sweating, nausea or vomiting. Denies difficulty breathing. Came to the ER for further evaluation. Denies any recent illnesses. Denies any medication changes. Notes he does have multiple cups of coffee and caffeinated beverages a day. As previously seen Dr. Meyer but after couple years of no issues his medications are just managed by his PCP now. Patient denies any recent swelling of his legs. Has been his normal state of health. Denies any other complaints at this time. [facility] Medical History (Updated 06/06/23 @ 16:[address] Marisa Alanis DO) Anxiety Dizziness Essential (primary) hypertension Obesity Pure hypercholesterolemia Home Medications levothyroxine 137 mcg tablet 137 mcg PO DAILY thyroid 04/03/18 [History Last Taken Unknown] rosuvastatin 20 mg tablet 20 mg PO DAILY cholesterol #90 tabs 05/11/19 [Rx Last Taken Unknown] lisinopril 20 mg tablet 20 mg PO QDAY blood pressure #90 tabs 08/25/19 [Rx Last Taken Unknown] hydrochlorothiazide 12.5 mg tablet 12.5 mg PO DAILY fluid overload #90 tabs [Rx Last Taken Unknown] Allergy/AdvReac Type Severity Reaction Status Date / Time Penicillins Allergy Unknown Verified 06/06/23 08:40 Family History Father Hypertension Son Hypertension Sister Hyperlipemia Surgical History History of thyroidectomy History of tonsillectomy Social History Smoking Status: Light Smoker (<10/day) ROS ROS ED Constitutional Constitutional ED: Denies chills or fever(s) Eyes Eyes: Denies change in vision Cardiovascular Cardiovascular: Reports as per HPI and palpitations; Denies chest pain Respiratory/Chest Respiratory/Chest: Denies cough or dyspnea Gastrointestinal Gastrointestinal: Denies abdominal pain, nausea or vomiting Musculoskeletal Musculoskeletal: Denies arthralgias or myalgias Integumentary Denies rash Neurologic Neurologic: Denies headache(s) EXAM Physical Exam Const Vital Signs: 06/06/23 08:42 06/06/23 09:05 06/06/23 09:06 Temperature 97.6 F L Temperature Source Temporal Pulse Rate 220 H 105 H Respiratory Rate 20 H 16 Respiratory Effort Normal Non-Labored Blood Pressure 109/95 H 110/87 H Blood Pressure Mean 99 94 Pulse Ox 95 96 Oxygen Delivery Method Room Air Room Air 06/06/23 11:00 06/06/23 11:29 06/06/23 12:00 Temperature Temperature Source Pulse Rate 88 78 Respiratory Rate 15 22 H Respiratory Effort Blood Pressure 122/86 H 133/98 H Blood Pressure Mean 98 109 Pulse Ox 97 97 95 Oxygen Delivery Method Room Air Room Air Room Air 06/06/23 13:00 06/06/23 14:00 06/06/23 15:02 Temperature Temperature Source Pulse Rate 67 72 75 Respiratory Rate 16 16 18 Respiratory Effort Blood Pressure 120/85 H 128/92 H 128/92 H Blood Pressure Mean 96 104 104 Pulse Ox 95 98 98 Oxygen Delivery Method Room Air Room Air Room Air 06/06/23 15:02 Temperature Temperature Source Pulse Rate 7 L Respiratory Rate 18 Respiratory Effort Blood Pressure 128/92 H Blood Pressure Mean 104 Pulse Ox 98 Oxygen Delivery Method Positive well nourished and well developed General Appearance ED: well developed and NAD HEENT Reports moist mucous membranes Eyes PERRL Neck supple and no JVD Chest Wall inspection of chest normal and palpation of chest normal Resp normal respiratory effort and clear to auscultation bilaterally Cardio regular rhythm and no murmurs Rate: tachycardic Peripheral Pulses: radial pulses present GI normal to inspection, nondistended, normoactive bowel sounds, soft to palpation and non-tender Extremity normal to inspection General Extremety ED: Negative for edema General Extremity: Negative for edema Neuro oriented x3 Sensorium / Orientation: awake and alert Psych mental status grossly normal Skin no rashes or lesions noted and no wounds MDM MDM MDM Narrative Medical decision making narrative: Patient is evaluated for a flutter in his chest. Was found to be in SVT. Is hemodynamically stable and does not require emergent cardioversion. Is initially given 6 mg IV adenosine with no response. Is then given 12 mg IV adenosine with conversion to sinus tachycardia. He remains hemodynamically stable. Will be given a 25 mg oral metoprolol and will perform a cardiac workup at this time looking for underlying cause of the SVT. Initial high-sensitivity troponin is normal at 8. He has no further arrhythmia. Repeat high-sensitivity troponin however jumped up to 107. Discussed with cardiology who recommends catheterization as patient essentially failed a stress test even though he did not have any acute EKG changes. Initially patient is quite hesitant about being admitted and having a cardiac catheterization as his mother during a cardiac catheterization 12 years ago. Patient evaluated by cardiology down in the ER. After repeat troponin #3 comes back even further elevated at 152 patient eventually is agreeable with admission and cardiac catheterization. Is admitted to the medicine service for this. Remains asymptomatic in the ER. Is given aspirin. Is not having any chest pain. Lab Data Attestation: I reviewed the patient's lab results. Labs: Laboratory Results - last 24 hr 06/06/23 06/06/23 06/06/23 08:45 11:25 13:25 WBC 12.0 H RBC 5.63 Hgb 17.1 H Hct 49.7 MCV 88.3 MCH 30.4 MCHC 34.4 RDW Std Deviation 42.1 RDW Coeff of Fabiana 13.0 Plt Count 287 MPV 8.8 Immature Gran % (Auto) 0.700 Neut % (Auto) 48.8 Lymph % (Auto) 36.3 [place] % (Auto) 9.3 Eos % (Auto) 3.5 Baso % (Auto) 1.4 H Absolute Neuts (auto) 5.9 Absolute Lymphs (auto) 4.37 Nucleated RBC % 0 Sodium 138 Potassium 3.4 L Chloride 101 Carbon Dioxide 27.0 Anion Gap 10 BUN 21 H Creatinine 1.13 Estim Creat Clear Calc 67.26 Est GFR (MDRD) Af Amer 85 Est GFR (MDRD) Non-Af 70 BUN/Creatinine Ratio 18.6 Glucose 112 H Calcium 8.9 Magnesium 2.2 Troponin I High Sens 8 107 H 152 H* TSH 2.74 Radiography Chest X-Ray - ED: 2 View, Read by ED Physician, Read by Radiologist and No Acute Disease Diagnostic Testing: Clinical Impression(s) from Imaging Studies Chest X-Ray 06/06/23 09:25 IMPRESSION: Normal x-ray examination of the chest. Electronically Signed: Jimenez Gordon MD at 9:42 EST , Rhythm Strip Rhythm Strip: SVT Rate: 210 Ectopy: None EKG Initial EKG: Attestation: I personally reviewed and interpreted this EKG as follows: Interpretation: SVT Comments: SVT at a rate of 210 bpm Left axis deviation Normal QRS and QTc Prior EKG tracings: not available for review Follow-up EKG: Attestation: I personally reviewed and interpreted this EKG as follows: Interpretation: Sinus Tachycardia Comments: Status post 12 mg IV adenosine Sinus tachycardia rate of 116 bpm Left axis deviation Normal ST segments Normal intervals Management Discussion w/another healthcare provider: Hospitalist and Server Service Assistant Critical Care Time Critical Care Time: Yes Critical care time (excluding procedures): 30-74 minutes (50), Discussing w/Patient &/or Family/Aoc Director Combat Operations Officer, Discussing w/Consultants, Arranging Admission or Transfer and Performing Direct Patient Care at Bedside Discharge Plan Dx/Rx/DC Orders Clinical Impression: Paroxysmal SVT (supraventricular tachycardia), Elevated troponin Disposition Disposition: Acute Care [facility] Discharge Date/Time: 06/06/23 15:15
--- NOTE | 2023-06-06 09:25 | RAD_ITS ---
STUDY: X-RAY CHEST REASON FOR EXAM: Male, 58 years old. Chest pain TECHNIQUE: PA and lateral views of the chest. COMPARISON: None. FINDINGS: EKG electrodes are seen. The lungs are clear and expanded. There is no demonstrated pleural abnormality. Normal size heart. Normal mediastinum and judy. Normal visualized pulmonary arteries. Normal visualized aortic arch and descending thoracic aorta. There are mild degenerative changes of the visualized thoracic spine. Normal visualized ribs, clavicles, and shoulders. There is no demonstrated abnormality of the visualized soft tissue structures of the upper abdomen. RAD/Chest PA and Lateral IMPRESSION: Normal x-ray examination of the chest. Electronically Signed: Jimenez Gordon MD at 9:42 EST ,
[2023-06-06 09:31] LABS: Anion Gap 10 (5-15); BUN 21 mg/dL (7-18); BUN/Creat Ratio 18.6 RATIO (10-20); Calcium,Total 8.9 mg/dL (8.5-10.1); Chloride 101 mmol/L (98-107); Creatinine, Serum 1.13 mg/dL (0.70-1.30); EST Glomerular Filtration Rate 70 mL/min (>60); Est Glom Filt Rate - Afr Amer 85 mL/min (>60); Estimated Creatinine Clearance 67.26 ml/min; Glucose 112 mg/dL (74-106); Magnesium 2.2 mg/dL (1.6-2.6); Potassium 3.4 mmol/L (3.5-5.1); Sodium Level 138 mmol/L (136-145); Thyroid Stim Hormone (TSH) 2.74 uIU/mL (0.358-3.74); Troponin-I HS (w/2H Reflex) 8 pg/mL (3.0-78.0)
[2023-06-06] MEDS: Metoprolol Tartrate 25 MG Tablet PO (09:36)
--- OUTSIDE RECORDS SUMMARY | 2023-06-06 10:17 | XMS RPT_ITS | CCD ---
Author Name Unknown Address [address] [place] [address] Organization [facility] Care Team Providers Care External Grinder Tender Name Role Phone Nae Reyes Unavailable DeFinis, Harumi Y Unavailable Unavailable DeFinis, Harumi Y Unavailable Unavailable Allergies Allergy Classification Reported Allergen(s) Allergy Type Date of Onset Reaction(s) Facility (3 sources) apis mellifera venom; Translations: [BEE STINGS] allergy to substance 5 [facility] Work Phone: [phone] (3 sources) Hmg-Coa Reductase Inhibitors (Statins) drug allergy 1 elevated liver enzymes [facility] Work Phone: (3 sources) Penicillin Drug Allergy 1 [facility] Work Phone: [phone] Medications Completed/Discontinued Medications Medication Drug Class(es) Dates Sig (Normalized) Sig (Original) hydroCHLOROthiazide 25 mg oral tablet (12 sources) Thiazide Diuretic Start: 4 take 1 tablet by mouth once daily HYDROCHLOROTHIAZIDE 25 MG TABS One tablet by mouth daily HYDROCHLOROTHIAZIDE [id number] Shannon Yadav PA-C Problems Active Problems Problem Classification Problem Date Documented Da te Episodic/Chronic Disorders of lipid metabolism (3 sources) Hyperlipidemia; Translations: [Hyperlipidemia, unspecified] Onset: 09-15-2010 09-15-2010 Chronic Essential hypertension (3 sources) Benign essential hypertension; Translations: [Essential (primary) hypertension] Onset: 09-15-2010 09-15-2010 Chronic Other nutritional; endocrine; and metabolic disorders (6 sources) Body mass index (BMI) 34.0-34.9, adult; Translations: [Body mass index (BMI) 34.0-34.9, adult] Onset: 11-06-2013 Resolved: 02-14-2015 11-06-2013 Chronic Other nutritional; endocrine; and metabolic disorders (3 sources) Body mass index (BMI) 33.0-33.9, adult; Translations: [Body mass index (BMI) 33.0-33.9, adult] Onset: 05-07-2014 05-07-2014 Chronic Other nutritional; endocrine; and metabolic disorders (3 sources) Body mass index (BMI) 32.0-32.9, adult; Translations: [Body mass index (BMI) 32.0-32.9, adult] Onset: 05-07-2014 04-02-2017 Chronic Residual codes; unclassified (3 sources) Tobacco user; Translations: [Tobacco use] Onset: 05-27-2015 05-27-2015 Chronic Thyroid disorders (6 sources) Goiter; Translations: [Iatrogenic hypothyroidism] Onset: 06-16-2014 06-16-2014 Chronic Unclassified (12 sources) Long-term drug therapy; Translations: [Long-term (current) use of other medications] Onset: 09-15-2010 Resolved: 02-14-2015 09-15-2010 Past or Other Problems Problem Classification Problem Date Documented Date Episodic/Chronic Cardiac dysrhythmias (3 sources) Palpitations; Translations: [Palpitations] Onset: 09-15-2010 09-15-2010 Episodic Conditions associated with dizziness or vertigo (3 sources) Dizziness and giddiness; Translations: [Dizziness and giddiness] Onset: 04-02-2017 04-02-2017 Episodic Other connective tissue disease (3 sources) Tendinitis of hand; Translations: [Enthesopathy, unspecified] Onset: 2015 2015 Episodic Other lower respiratory disease (3 sources) Snoring; Translations: [Snoring] Onset: 06-24-2014 06-24-2014 Episodic Other screening for suspected conditions (not mental disorders or infectious disease) (6 sources) Electrocardiogram abnormal; Translations: [Abnormal electrocardiogram [ECG] [EKG]] Onset: 09-15-2010 Resolved: 02-14-2015 02-14-2015 Episodic Other skin disorders (3 sources) Disorder of skin; Translations: [Disorder of the skin and subcutaneous tissue, unspecified] Onset: 2015 2015 Episodic Other skin disorders (6 sources) Inflamed seborrheic keratosis; Translations: [Inflamed seborrheic keratosis] Onset: 05-27-2015 Resolved: 06-10-2015 05-31-2015 Episodic Residual codes; unclassified (3 sources) FH: Hypertension; Translations: [Family history of ischemic heart disease and other diseases of the circulatory system] 05-07-2014 Episodic Residual codes; unclassified (3 sources) FH: Raised blood lipids; Translations: [Family history of other endocrine, nutritional and metabolic diseases] 05-07-2014 Episodic Unclassified (3 sources) Procedure needed; Translations: [Encounter for immunization] Onset: 05-27-2015 Resolved: 05-29-2015 05-27-2015 Results Test Name Value Interpretation Reference Range Facil ity Vital Signs Date Time Vital Sign Value Performing Clinician Chase roth 04-02-2017 08:51-0400 BMI (Body Mass Index) 32.78 kg/m2 [facility] Work Phone: 04-02-2017 08:51-0400 BP Diastolic 90 mm[Hg] Hemosphereumi DeFinis [facility] Work Phone: 04-02-2017 08:51-0400 BP Diastolic 92 mm[Hg] Harumi DeFinis [facility] Work Phone: 04-02-2017 08:51-0400 BP Systolic 142 mm[Hg] Harumi DeFinis [facility] Work Phone: 04-02-2017 08:51-0400 BP Systolic 130 mm[Hg] Hemosphereumi DeFinis [facility] Work Phone: 04-02-2017 08:51-0400 Height 175.26 cm Hemosphereumi DeFinis [facility] Work Phone: 04-02-2017 08:51-0400 Pulse (Heart Rate) 92 /min Harumi DeFinis [facility] Work Phone: 04-02-2017 08:51-0400 Respiratory Rate 20 /min Harumi DeFinis [facility] Work Phone: 04-02-2017 08:51-0400 Weight 100.7 kg [facility] DeFinis [facility] Work Phone: 03-06-2016 09:08-0400 BMI (Body Mass Index) 32.63 kg/m2 [facility] Work Phone: 03-06-2016 09:08-0400 BP Diastolic 80 mm[Hg] Nae [facility] Work Phone: 03-06-2016 09:08-0400 BP Systolic 120 mm[Hg] Nae [facility] Work Phone: 03-06-2016 09:08-0400 BSA (Body Surface Area) 2.16 m2 Nae [facility] Work Phone: 03-06-2016 09:08-0400 Pulse (Heart Rate) 88 /min Nae [facility] Work Phone: 03-06-2016 09:08-0400 Respiratory Rate 20 /min Nae [facility] Work Phone: 03-06-2016 09:08-0400 Weight 100.25 kg Nae [facility] Work Phone: 05-27-2015 08:56-0500 Body Temperature 98.1 [degF] Nae [facility] Work Phone: 05-07-2014 08:49-0500 Heart rate 81 /min Nae [facility] Work Phone: 11-06-2013 10:55-0400 BP Diastolic 90 mm[Hg] Nae [facility] Work Phone: 11-06-2013 10:55-0400 BP Diastolic 88 mm[Hg] Nae [facility] Work Phone: 11-06-2013 10:55-0400 BP Systolic 142 mm[Hg] Nae [facility] Work Phone: 11-06-2013 10:55-0400 Height 175.26 cm Nae [facility] Work Phone: 05-22-2011 11:14-0500 Pulse (Heart Rate) 80 /min Nae Reyes [facility] Work Phone: Procedures Date Procedure Procedure Detail Performing Clinician Start: 04-02-2017 End: 04-02-2017 *SATHISH Meyer MD Start: 04-02-2017 End: 04-02-2017 *Hepatic Function Panel Real Gonzalez Start: 04-02-2017 End: 04-05-2017 JHR Oscar Meyer MD Start: 04-02-2017 End: 04-02-2017 Lipid 1996 panel - Serum or Plasma Oscar Meyer MD Start: 09-03-2016 End: 04-05-2017 *Hepatic Function Panel Real Gonzalez Start: 09-03-2016 End: 04-05-2017 Lipid 1996 panel - Serum or Plasma Oscar Meyer MD Start: 03-06-2016 End: 03-06-2016 *SATHISH Meyer MD Start: 03-06-2016 End: 03-06-2016 *Hepatic Function Panel Real Gonzalez Start: 03-06-2016 End: 03-06-2016 CHARGE OUT CLERK Oscar Meyer MD Start: 03-06-2016 End: 03-06-2016 Follow Up Appt 1 year Oscar Meyer MD Start: 03-06-2016 End: 03-06-2016 Lipid 1996 panel - Serum or Plasma Oscar Meyer MD Start: 09-02-2015 End: 04-05-2017 *Hepatic Function Panel Real Gonzalez Start: 09-02-2015 End: 04-05-2017 Lipid 1996 panel - Serum or Plasma Oscar Meyer MD Start: 05-27-2015 End: 05-27-2015 Dietary management education, guidance, and counseling Naeisaac Reyes Start: 05-11-2015 Screening for malignant neoplasm of colon Screening, colon cancer Nae Reyes Start: 2015 End: 05-20-2015 Thyrotropin [Units/volume] in Serum or Plasma Jd Jimenes DO Work Phone: Start: 03-03-2015 End: 03-03-2015 *Hepatic Function Panel Real Gonzalez Start: 03-03-2015 End: 03-03-2015 CHARGE OUT CLERK Oscar Meyer MD Start: 03-03-2015 End: 03-04-2015 Documentation of current medications Oscar Meyer MD Start: 03-03-2015 End: 03-03-2015 Follow Up Appt 1 year Oscar Meyer MD Start: 03-03-2015 End: 03-03-2015 Lipid 1996 panel - Serum or Plasma Oscar Meyer MD Start: 11-13-2014 End: 03-03-2015 *Hepatic Function Panel Shannon ervin PA-C Work Phone: Start: 11-13-2014 End: 03-03-2015 Lipid 1996 panel - Serum or Plasma Shannon Yadav PA-C Work Phone: Start: 07-29-2014 End: 07-29-2014 CHARGE OUT CLERK Shannon Yadav PA-C Work Phone: Start: 07-29-2014 End: 07-30-2014 Documentation of current medications Shannon Yadav PA-C Work Phone: Start: 07-29-2014 End: 07-29-2014 Follow Up Appt 6 months Shannon ervin PA-C Work Phone: Start: 07-29-2014 End: 07-30-2014 Smoking cessation education Shannon Garcia PA-C Work Phone: Start: 06-24-2014 End: 06-28-2014 Thyroglobulin Ab [Units/volume] in Serum or Plasma Jd Jimenes [facility] Phone: Start: 06-24-2014 End: 06-28-2014 Thyroid stimulating immunoglobulins [Units/volume] in Serum Jd Jimenes [facility] Phone: Start: 06-24-2014 End: 06-28-2014 Thyrotropin [Units/volume] in Serum or Plasma Jd Jimenes [facility] Phone: Start: 06-24-2014 End: 06-28-2014 Thyroxine (T4) [Mass/volume] in Serum or Plasma Jd Jimenes [facility] Phone: Start: 06-24-2014 End: 06-28-2014 Thyroxine (T4) free [Mass/volume] in Serum or Plasma Jd Jimenes [facility] Phone: Start: 06-24-2014 End: 06-28-2014 Triiodothyronine (T3) [Mass/volume] in Serum or Plasma Jd Jimenes [facility] Phone: Start: 06-24-2014 End: 06-28-2014 soft tissue head & neck real time imge docm Jd Jimenes DO [employer] Phone: Start: 06-16-2014 End: 06-16-2014 *BMP Shannon Yadav PA-C Work Phone: Start: 06-16-2014 End: 06-16-2014 Follow Up Appt 6 weeks Shannon melissa PA-C Work Phone: Start: 06-16-2014 End: 07-16-2014 Follow Up Appt Other Shannon diaz PA-C Work Phone: Start: 06-16-2014 End: 06-16-2014 MMM Shannon Yadav PA-C Work Phone: Start: 06-16-2014 End: 06-16-2014 Thyroid horm uptk/thyroid hormone binding ratio Shannon Yadav PA-C Work Phone: Start: 05-07-2014 End: 05-07-2014 *Hepatic Function Panel Shannon ervin PA-C Work Phone: Start: 05-07-2014 End: 05-07-2014 Follow Up Appt 6 weeks Shannon melissa PA-C Work Phone: Start: 05-07-2014 End: 05-07-2014 Lipid 1996 panel - Serum or Plasma Shannon Yadav PA-C Work Phone: Start: 05-07-2014 End: 05-07-2014 MMM Shannon Yadav PA-C Work Phone: Start: 11-06-2013 End: 11-06-2013 Follow Up Appt 6 months Real Gonzalez Start: 11-06-2013 End: 11-06-2013 MMM Oscar Meyer MD Start: 10-08-2013 End: 11-04-2013 *Hepatic Function Panel Real Gonzalez Start: 10-05-2013 End: 11-04-2013 Lipid 1996 panel - Serum or Plasma Oscar Meyer MD Start: 01-01-2012 End: 09-02-2013 *Hepatic Function Panel Real Gonzalez Start: 01-01-2012 End: 01-01-2012 Follow Up Appt 1 year Oscar Meyer MD Start: 01-01-2012 End: 09-02-2013 Lipid 1996 panel - Serum or Plasma Oscar Meyer MD Start: 05-22-2011 End: 09-02-2013 *Hepatic Function Panel Real [facility] Start: 05-22-2011 End: 05-22-2011 Follow Up Appt 6 months Real Gonzalez Start: 05-22-2011 End: 09-02-2013 Lipid 1996 panel - Serum or Plasma Oscar Meyer MD Plan of Treatment Date Care Activity Detail Author Start: 04-03-2018 End: 04-03-2018 Appointment Appointment [facility] Work Phone: Start: 10-01-2017 End: 04-05-2017 *Hepatic Function Panel *Hepatic Function Panel [facility] Work Phone: Start: 10-01-2017 End: 04-05-2017 Lipid 1996 panel *Lipid Profile CC PCP [facility] Work Phone: Start: 04-02-2017 End: 04-02-2017 *BMP *BMP [facility] Work Phone: Start: 04-02-2017 End: 04-02-2017 *Hepatic Function Panel *Hepatic Function Panel [facility] Work Phone: Start: 04-02-2017 End: 04-05-2017 JHR [facility] Work Phone: Start: 04-02-2017 End: 04-02-2017 Lipid 1996 panel *Lipid Profile CC PCP [facility] Work Phone: Start: 04-02-2017 End: 04-02-2017 Appointment Appointment [facility] Work Phone: Start: 09-03-2016 End: 04-05-2017 *Hepatic Function Panel *Hepatic Function Panel [facility] Work Phone: Start: 09-03-2016 End: 04-05-2017 Lipid 1996 panel *Lipid Profile CC PCP [facility] Work Phone: Start: 03-06-2016 End: 03-06-2016 *BMP *BMP [facility] Work Phone: Start: 03-06-2016 End: 03-06-2016 *Hepatic Function Panel *Hepatic Function Panel [facility] Work Phone: Start: 03-06-2016 End: 03-06-2016 CHARGE OUT CLERK CHARGE OUT CLERK [facility] Work Phone: Start: 03-06-2016 End: 03-06-2016 Follow Up Appt 1 year Follow Up Appt 1 year [facility] Work Phone: Start: 03-06-2016 End: 03-06-2016 Lipid 1996 panel *Lipid Profile CC PCP [facility] Work Phone: Start: 09-02-2015 End: 04-05-2017 *Hepatic Function Panel *Hepatic Function Panel [facility] Work Phone: Start: 09-02-2015 End: 04-05-2017 Lipid 1996 panel *Lipid Profile CC PCP [facility] Work Phone: Start: 07-25-2015 End: 05-20-2015 T4 free mass conc *T4 free [facility] Work Phone: Start: 07-25-2015 End: 05-20-2015 Thyrotropin Qn *TSH [facility] Work Phone: Start: 05-27-2015 End: 05-31-2015 Exc b9 lesion mrgn xcp sk tg t/a/l 1.1-2.0 cm Excision Benign Lesion Trunk/Arm/Leg 1.1-2.0 cm [facility] Work Phone: Start: 05-27-2015 End: 05-27-2015 Im adm prq id subq/im njxs 1 vaccine Administration Immunization >=8 years of age [facility] Work Phone: Start: 05-11-2015 End: 05-18-2015 Surgery Referral Surgery Referral Jess Foster, BREANNA, [address], [place], [address] [facility] Work Phone: Start: 2015 End: 05-20-2015 Thyrotropin Qn *TSH [facility] Work Phone: Start: 03-03-2015 End: 03-03-2015 *Hepatic Function Panel *Hepatic Function Panel [facility] Work Phone: Start: 03-03-2015 End: 03-03-2015 CHARGE OUT CLERK CHARGE OUT CLERK [facility] Work Phone: Start: 03-03-2015 End: 03-03-2015 Follow Up Appt 1 year Follow Up Appt 1 year [facility] Work Phone: Start: 03-03-2015 End: 03-03-2015 Lipid 1996 panel *Lipid Profile CC PCP [facility] Work Phone: Start: 11-13-2014 End: 03-03-2015 *Hepatic Function Panel *Hepatic Function Panel [facility] Work Phone: Start: 11-13-2014 End: 03-03-2015 Lipid 1996 panel *Lipid Profile CC PCP [facility] Work Phone: Start: 07-29-2014 End: 07-29-2014 CHARGE OUT CLERK CHARGE OUT CLERK [facility] Work Phone: Start: 07-29-2014 End: 07-29-2014 Follow Up Appt 6 months Follow Up Appt 6 months [facility] Work Phone: Start: 06-29-2014 End: 06-30-2014 ENT referral ENT referral [facility], [address] [place] [address], [id number] [facility] Work Phone: Start: 06-24-2014 End: 06-28-2014 T3 mass conc *T3-Total [facility] Work Phone: Start: 06-24-2014 End: 06-28-2014 T4 free mass conc *T4 free [facility] Work Phone: Start: 06-24-2014 End: 06-28-2014 T4 mass conc *T4 (Total) [facility] Work Phone: Start: 06-24-2014 End: 06-28-2014 Thyroglobulin Ab Qn *ATAB - Thyroglobulin Antibody [facility] Work Phone: Start: 06-24-2014 End: 06-28-2014 Thyroid stimulating immunoglobulins Qn (S) *TSIMM TSI Thyroid Stimulating Immunglob [facility] Work Phone: Start: 06-24-2014 End: 06-28-2014 Thyrotropin Qn *TSH [facility] Work Phone: Start: 06-24-2014 End: 06-28-2014 Us soft tissue head & neck real time imge docm US Thyroid (Soft tissue neck) [facility] Work Phone: Start: 06-16-2014 End: 06-16-2014 *BMP *BMP [facility] Work Phone: Start: 06-16-2014 End: 06-16-2014 Follow Up Appt 6 weeks Follow Up Appt 6 weeks [facility] Phone: Start: 06-16-2014 End: 07-16-2014 Follow Up Appt Other Follow Up Appt Other [facility] Work Phone: Start: 06-16-2014 End: 06-16-2014 MMM MMM [facility] Work Phone: Start: 06-16-2014 End: 06-16-2014 Thyroid horm uptk/thyroid hormone binding ratio Thyroid Panel (T-3/T-4/TSH) [facility] Phone: Start: 05-07-2014 End: 05-07-2014 *Hepatic Function Panel *Hepatic Function Panel [facility] Work Phone: Start: 05-07-2014 End: 05-07-2014 Follow Up Appt 6 weeks Follow Up Appt 6 weeks [facility] Phone: Start: 05-07-2014 End: 05-07-2014 Lipid 1996 panel *Lipid Profile CC PCP [facility] Work Phone: Start: 05-07-2014 End: 05-07-2014 MMM MMM [facility] Work Phone: Start: 11-06-2013 End: 11-06-2013 Follow Up Appt 6 months Follow Up Appt 6 months [facility] Work Phone: Start: 11-06-2013 End: 11-06-2013 MMM MMM [facility] Work Phone: Start: 10-08-2013 End: 11-04-2013 *Hepatic Function Panel *Hepatic Function Panel [facility] Work Phone: Start: 10-05-2013 End: 11-04-2013 Lipid 1996 panel *Lipid Profile CC PCP [facility] Work Phone: Start: 01-01-2012 End: 09-02-2013 *Hepatic Function Panel *Hepatic Function Panel [facility] Work Phone: Start: 01-01-2012 End: 01-01-2012 Follow Up Appt 1 year Follow Up Appt 1 year [facility] Work Phone: Start: 01-01-2012 End: 09-02-2013 Lipid 1996 panel *Lipid Profile [facility] Work Phone: Start: 05-22-2011 End: 09-02-2013 *Hepatic Function Panel *Hepatic Function Panel [facility] Work Phone: Start: 05-22-2011 End: 05-22-2011 Follow Up Appt 6 months Follow Up Appt 6 months [facility] Work Phone: Start: 05-22-2011 End: 09-02-2013 Lipid 1996 panel *Lipid Profile [facility] Work Phone: [facility] Work Phone: Additional Source Comments FOR RECORDS PERTAINING TO PATIENTS WHO ARE OR HAVE BEEN ENROLLED IN A CHEMICAL DEPENDENCY/SUBSTANCEABUSE PROGRAM, SOME INFORMATION MAY BE OMITTED. This clinical summary was aggregated from multiple sources. Caution should be exercised in using it in the provision of clinical care. This summary normalizes information from multiple sources, and as a consequence, information in this document may materially change the coding, format and clinical context of patient data. In addition, data may be omitted in some cases. CLINICAL DECISIONS SHOULD BE BASED ON THE PRIMARY CLINICAL RECORDS. [facility] provides no warranty or guarantee of the accuracy or completeness of information in this document.
[2023-06-06 11:06] LABS: Reflex Troponin-HS? (from REC) Y
[2023-06-06 11:47] LABS: Troponin-I HS 107 pg/mL (3.0-78.0)
[2023-06-06 13:55] LABS: Troponin-I HS 152 pg/mL (3.0-78.0)
--- OUTSIDE RECORDS SUMMARY | 2023-06-06 15:18 | XMS RPT_ITS | CCD ---
Author Name Unknown Address [id number] [place] [address] Organization [facility] Care Team Providers Care [employer] Worker Name Role Phone Nae Reyes Unavailable DeFinis, Harumi Y Unavailable Unavailable DeFinis, Harumi Y Unavailable Unavailable Allergies Allergy Classification Reported Allergen(s) Allergy Type Date of Onset Reaction(s) Facility (3 sources) apis mellifera venom; Translations: [BEE STINGS] allergy to substance 5 [facility] [employer] [facility] Work Phone: [phone] (3 sources) Hmg-Coa Reductase Inhibitors (Statins) drug allergy 1 elevated liver enzymes [facility] [employer] Work Phone: (3 sources) Penicillin Drug Allergy 1 [facility] [employer] Work Phone: [phone] Medications Completed/Discontinued Medications Medication Drug Class(es) Dates Sig (Normalized) Sig (Original) hydroCHLOROthiazide 25 mg oral tablet (12 sources) Thiazide Diuretic Start: 4 take 1 tablet by mouth once daily HYDROCHLOROTHIAZIDE 25 MG TABS One tablet by mouth daily HYDROCHLOROTHIAZIDE [id number] Shannon Yadav PA-C Problems Active Problems Problem [...] 08:51-0400 BMI (Body Mass Index) 32.78 kg/m2 [employer] [facility] Work Phone: 04-02-2017 08:51-0400 BP Diastolic 90 mm[Hg] Aeropostaleumi DeFinis [facility] Work Phone: 04-02-2017 08:51-0400 BP Diastolic 92 mm[Hg] Harumi DeFinis [facility] Work Phone: 04-02-2017 08:51-0400 BP Systolic 142 mm[Hg] Harumi DeFinis [facility] Work Phone: 04-02-2017 08:51-0400 BP Systolic 130 mm[Hg] Aeropostaleumi DeFinis [facility] Work Phone: 04-02-2017 08:51-0400 Height 175.26 cm Aeropostaleumi DeFinis [facility] Work Phone: 04-02-2017 08:51-0400 Pulse (Heart Rate) 92 /min Harumi DeFinis [facility] Work Phone: 04-02-2017 08:51-0400 Respiratory Rate 20 /min Harumi DeFinis [facility] Work Phone: 04-02-2017 08:51-0400 Weight 100.7 kg DEMANDIT DeFinis [facility] Work Phone: 03-06-2016 09:08-0400 BMI [...] Pulse (Heart Rate) 80 /min Nae Reyes [facility] Work Phone: Procedures Date Procedure [...] Panel Real Gonzalez Start: 03-06-2016 End: 03-06-2016 FORMING MILL OPERATOR Oscar Meyer MD Start: 03-06-2016 End: 03-06-2016 [...] Panel Real Gonzalez Start: 03-03-2015 End: 03-03-2015 FORMING MILL OPERATOR Oscar Meyer MD Start: 03-03-2015 End: 03-04-2015 [...] PA-C Work Phone: Start: 07-29-2014 End: 07-29-2014 FORMING MILL OPERATOR Shannon Yadav PA-C Work Phone: Start: 07-29-2014 End: 07-30-2014 Documentation of current medications Shannon Yadav PA-C Work Phone: Start: 07-29-2014 End: 07-29-2014 Follow Up Appt 6 months Shannon ervin PA-C Work Phone: Start: 07-29-2014 End: 07-30-2014 Smoking cessation education Shannon Garcia PA-C Work Phone: Start: 06-24-2014 End: 06-28-2014 Thyroglobulin Ab [Units/volume] in Serum or Plasma Jd Jimenes [facility] Phone: Start: 06-24-2014 End: 06-28-2014 Thyroid stimulating immunoglobulins [Units/volume] in Serum Jd Jimenes [facility] Phone: Start: 06-24-2014 End: 06-28-2014 Thyrotropin [Units/volume] in Serum or Plasma Jd Jimenes [facility] Phone: Start: 06-24-2014 End: 06-28-2014 Thyroxine (T4) [Mass/volume] in Serum or Plasma Jd Jimenes [facility] Phone: Start: 06-24-2014 End: 06-28-2014 Thyroxine (T4) free [Mass/volume] in Serum or Plasma Jd Jimenes [facility] Phone: Start: 06-24-2014 End: 06-28-2014 Triiodothyronine (T3) [Mass/volume] in Serum or Plasma Jd Jimenes [facility] Phone: Start: 06-24-2014 End: 06-28-2014 soft tissue head & neck real time imge docm Jd Jimenes DO [facility] Phone: Start: 06-16-2014 End: 06-16-2014 *BMP Shannon [...] Author Start: 04-03-2018 End: 04-03-2018 Appointment Appointment [facility] Work Phone: Start: 10-01-2017 End: 04-05-2017 *Hepatic Function Panel *Hepatic Function Panel [facility] Work Phone: Start: 10-01-2017 End: 04-05-2017 Lipid 1996 panel *Lipid Profile CC PCP [facility] Work Phone: Start: 04-02-2017 End: 04-02-2017 *BMP *BMP [facility] Work Phone: Start: 04-02-2017 End: 04-02-2017 *Hepatic Function Panel *Hepatic Function Panel [facility] Work Phone: Start: 04-02-2017 End: 04-05-2017 [facility] Work Phone: Start: 04-02-2017 End: 04-02-2017 Lipid 1996 panel *Lipid Profile CC PCP [facility] Work Phone: Start: 04-02-2017 End: 04-02-2017 Appointment Appointment [facility] Work Phone: Start: 09-03-2016 End: 04-05-2017 *Hepatic Function Panel *Hepatic Function Panel [facility] Work Phone: Start: 09-03-2016 End: 04-05-2017 Lipid 1996 panel *Lipid Profile CC PCP [facility] Work Phone: Start: 03-06-2016 End: 03-06-2016 *BMP *BMP [facility] Work Phone: Start: 03-06-2016 End: 03-06-2016 *Hepatic Function Panel *Hepatic Function Panel [facility] Work Phone: Start: 03-06-2016 End: 03-06-2016 FORMING MILL OPERATOR FORMING MILL OPERATOR [facility] Work Phone: Start: 03-06-2016 End: 03-06-2016 Follow Up Appt 1 year Follow Up Appt 1 year [facility] Work Phone: Start: 03-06-2016 End: 03-06-2016 Lipid 1996 panel *Lipid Profile CC PCP [facility] Work Phone: Start: 09-02-2015 End: 04-05-2017 *Hepatic Function Panel *Hepatic Function Panel [facility] Work Phone: Start: 09-02-2015 End: 04-05-2017 Lipid 1996 panel *Lipid Profile CC PCP [facility] Work Phone: Start: 07-25-2015 End: 05-20-2015 T4 free mass conc *T4 free [facility] Work Phone: Start: 07-25-2015 End: 05-20-2015 Thyrotropin Qn *TSH [facility] Work Phone: Start: 05-27-2015 End: 05-31-2015 Exc b9 lesion mrgn xcp sk tg t/a/l 1.1-2.0 cm Excision Benign Lesion Trunk/Arm/Leg 1.1-2.0 cm [facility] Work Phone: Start: 05-27-2015 End: 05-27-2015 Im adm prq id subq/im njxs 1 vaccine Administration Immunization >=8 years of age [facility] Work Phone: Start: 05-11-2015 End: 05-18-2015 Surgery Referral Surgery Referral Jess Foster, BREANNA, [address], [place], [address] [facility] Work Phone: Start: 2015 End: 05-20-2015 Thyrotropin Qn *TSH [facility] Work Phone: Start: 03-03-2015 End: 03-03-2015 *Hepatic Function Panel *Hepatic Function Panel [facility] Work Phone: Start: 03-03-2015 End: 03-03-2015 FORMING MILL OPERATOR FORMING MILL OPERATOR [facility] Work Phone: Start: 03-03-2015 End: 03-03-2015 Follow Up Appt 1 year Follow Up Appt 1 year [facility] Work Phone: Start: 03-03-2015 End: 03-03-2015 Lipid 1996 panel *Lipid Profile CC PCP [facility] Work Phone: Start: 11-13-2014 End: 03-03-2015 *Hepatic Function Panel *Hepatic Function Panel [facility] Work Phone: Start: 11-13-2014 End: 03-03-2015 Lipid 1996 panel *Lipid Profile CC PCP [facility] Work Phone: Start: 07-29-2014 End: 07-29-2014 FORMING MILL OPERATOR FORMING MILL OPERATOR [facility] Work Phone: Start: 07-29-2014 End: 07-29-2014 Follow Up Appt 6 months Follow Up Appt 6 months [facility] Work Phone: Start: 06-29-2014 End: 06-30-2014 [address] ENT referral [facility], [address] [place] [address], [id number] [facility] Work Phone: Start: 06-24-2014 End: 06-28-2014 T3 mass conc *T3-Total [facility] Work Phone: Start: 06-24-2014 End: 06-28-2014 T4 free mass conc *T4 free [facility] Work Phone: Start: 06-24-2014 End: 06-28-2014 T4 mass conc *T4 (Total) [facility] Work Phone: Start: 06-24-2014 End: 06-28-2014 Thyroglobulin Ab Qn *ATAB - Thyroglobulin Antibody [facility] Work Phone: Start: 06-24-2014 End: 06-28-2014 Thyroid stimulating immunoglobulins Qn (S) *TSIMM TSI Thyroid Stimulating Immunglob [facility] Work Phone: Start: 06-24-2014 End: 06-28-2014 Thyrotropin Qn *TSH [facility] Work Phone: Start: 06-24-2014 End: 06-28-2014 Us soft tissue head & neck real time imge docm US Thyroid (Soft tissue neck) [facility] Work Phone: Start: 06-16-2014 End: 06-16-2014 *BMP *BMP [facility] Work Phone: Start: 06-16-2014 End: 06-16-2014 Follow Up Appt 6 weeks Follow Up Appt 6 weeks [employer] Phone: Start: 06-16-2014 End: 07-16-2014 Follow Up Appt Other Follow Up Appt Other [facility] Work Phone: Start: 06-16-2014 End: 06-16-2014 MMM MMM [facility] Work Phone: Start: 06-16-2014 End: 06-16-2014 Thyroid horm uptk/thyroid hormone binding ratio Thyroid Panel (T-3/T-4/TSH) [employer] Phone: Start: 05-07-2014 End: 05-07-2014 *Hepatic Function Panel *Hepatic Function Panel [facility] Work Phone: Start: 05-07-2014 End: 05-07-2014 Follow Up Appt 6 weeks Follow Up Appt 6 weeks [employer] Phone: Start: 05-07-2014 End: 05-07-2014 Lipid 1996 panel *Lipid Profile CC PCP [facility] Work Phone: Start: 05-07-2014 End: 05-07-2014 MMM MMM [facility] Work Phone: Start: 11-06-2013 End: 11-06-2013 Follow Up Appt 6 months Follow Up Appt 6 months [facility] Work Phone: Start: 11-06-2013 End: 11-06-2013 MMM MMM [facility] Work Phone: Start: 10-08-2013 End: 11-04-2013 *Hepatic Function Panel *Hepatic Function Panel [facility] Work Phone: Start: 10-05-2013 End: 11-04-2013 Lipid 1996 panel *Lipid Profile CC PCP [facility] Work Phone: Start: 01-01-2012 End: 09-02-2013 *Hepatic Function Panel *Hepatic Function Panel [facility] Work Phone: Start: 01-01-2012 End: 01-01-2012 Follow Up Appt 1 year Follow Up Appt 1 year [facility] Work Phone: Start: 01-01-2012 End: 09-02-2013 Lipid 1996 panel *Lipid Profile [facility] Work Phone: Start: 05-22-2011 End: [...] BE BASED ON THE PRIMARY CLINICAL RECORDS. [facility]. provides no warranty or guarantee of the accuracy or completeness of information in this document.
--- OUTSIDE RECORDS SUMMARY | 2023-06-06 16:15 | XMS RPT_ITS | CCD ---
Author Name Unknown Address [address] [place] [address] Organization [facility] Care Team Providers Care Television Anchor Name Role Phone Nae Reyes Unavailable DeFinis, Harumi Y Unavailable Unavailable DeFinis, Harumi Y Unavailable Unavailable Allergies Allergy Classification Reported Allergen(s) Allergy Type Date of Onset Reaction(s) Facility (3 sources) apis mellifera venom; Translations: [BEE STINGS] allergy to substance 5 [facility] [employer] Work Phone: [phone] (3 sources) Hmg-Coa Reductase Inhibitors (Statins) drug allergy 1 elevated liver enzymes [facility] Work Phone: (3 sources) Penicillin Drug Allergy 1 [facility] Work Phone: [phone] Medications Completed/Discontinued Medications Medication Drug Class(es) Dates Sig (Normalized) Sig (Original) hydroCHLOROthiazide 25 mg oral tablet (12 sources) Thiazide Diuretic Start: 4 take 1 tablet by mouth once daily HYDROCHLOROTHIAZIDE 25 MG TABS One tablet by mouth daily HYDROCHLOROTHIAZIDE [id number] Shannon Yadav PA-C Problems Active Problems Problem [...] 08:51-0400 BMI (Body Mass Index) 32.78 kg/m2 [employer] [facility] Work Phone: 04-02-2017 08:51-0400 BP Diastolic 90 mm[Hg] algranoumi DeFinis [facility] Work Phone: 04-02-2017 08:51-0400 BP Diastolic 92 mm[Hg] Harumi DeFinis [facility] Work Phone: 04-02-2017 08:51-0400 BP Systolic 142 mm[Hg] Harumi DeFinis [facility] Work Phone: 04-02-2017 08:51-0400 BP Systolic 130 mm[Hg] algranoumi DeFinis [facility] Work Phone: 04-02-2017 08:51-0400 Height 175.26 cm algranoumi DeFinis [facility] Work Phone: 04-02-2017 08:51-0400 Pulse (Heart Rate) 92 /min Harumi DeFinis [facility] Work Phone: 04-02-2017 08:51-0400 Respiratory Rate 20 /min Harumi DeFinis [facility] Work Phone: 04-02-2017 08:51-0400 Weight 100.7 kg Miappi DeFinis [facility] Work Phone: 03-06-2016 09:08-0400 BMI [...] Pulse (Heart Rate) 80 /min Nae Reyes [facility] Work Phone: Procedures Date Procedure [...] Panel Real Gonzalez Start: 03-06-2016 End: 03-06-2016 CHEF & OWNER Oscar Meyer MD Start: 03-06-2016 End: 03-06-2016 [...] Panel Real Gonzalez Start: 03-03-2015 End: 03-03-2015 CHEF & OWNER Oscar Meyer MD Start: 03-03-2015 End: 03-04-2015 [...] PA-C Work Phone: Start: 07-29-2014 End: 07-29-2014 CHEF & OWNER Shannon Yadav PA-C Work Phone: Start: 07-29-2014 End: 07-30-2014 Documentation of current medications Shannon Yadav PA-C Work Phone: Start: 07-29-2014 End: 07-29-2014 Follow Up Appt 6 months Shannon ervin PA-C Work Phone: Start: 07-29-2014 End: 07-30-2014 Smoking cessation education Shannon Garcia PA-C Work Phone: Start: 06-24-2014 End: 06-28-2014 Thyroglobulin Ab [Units/volume] in Serum or Plasma Jd Jimenes [employer] Phone: Start: 06-24-2014 End: 06-28-2014 Thyroid stimulating immunoglobulins [Units/volume] in Serum Jd Jimenes [facility] Phone: Start: 06-24-2014 End: 06-28-2014 Thyrotropin [Units/volume] in Serum or Plasma Jd Jimenes [facility] Phone: Start: 06-24-2014 End: 06-28-2014 Thyroxine (T4) [Mass/volume] in Serum or Plasma Jd Jimenes [facility] Phone: Start: 06-24-2014 End: 06-28-2014 Thyroxine (T4) free [Mass/volume] in Serum or Plasma Jd Jimenes [facility] Phone: Start: 06-24-2014 End: 06-28-2014 Triiodothyronine (T3) [Mass/volume] in Serum or Plasma Jd Jimenes [facility] Phone: Start: 06-24-2014 End: 06-28-2014 soft tissue head & neck real time imge docm Jd Jimenes DO [employer] Phone: Start: 06-16-2014 End: 06-16-2014 *BMP Shannon [...] Lipid 1996 panel - Serum or Plasma Oscra Meyer MD Start: 05-22-2011 End: 09-02-2013 *Hepatic [...] 04-05-2017 *Hepatic Function Panel *Hepatic Function Panel [facility] Work Phone: Start: 10-01-2017 End: 04-05-2017 Lipid 1996 panel *Lipid Profile CC PCP [facility] Work Phone: Start: 04-02-2017 End: 04-02-2017 *BMP *BMP [facility] Work Phone: Start: 04-02-2017 End: 04-02-2017 *Hepatic Function Panel *Hepatic Function Panel [facility] Work Phone: Start: 04-02-2017 End: 04-05-2017 JHR J[facility] Work Phone: Start: 04-02-2017 End: 04-02-2017 Lipid 1996 panel *Lipid Profile CC PCP [facility] Work Phone: Start: 04-02-2017 End: 04-02-2017 Appointment Appointment [facility] Work Phone: Start: 09-03-2016 End: 04-05-2017 *Hepatic Function Panel *Hepatic Function Panel [facility] Work Phone: Start: 09-03-2016 End: 04-05-2017 Lipid 1996 panel *Lipid Profile CC PCP [facility] Work Phone: Start: 03-06-2016 End: 03-06-2016 *BMP *BMP [facility] Work Phone: Start: 03-06-2016 End: 03-06-2016 *Hepatic Function Panel *Hepatic Function Panel [facility] Work Phone: Start: 03-06-2016 End: 03-06-2016 CHEF & OWNER CHEF & OWNER [facility] Work Phone: Start: 03-06-2016 End: 03-06-2016 Follow Up Appt 1 year Follow Up Appt 1 year [facility] Work Phone: Start: 03-06-2016 End: 03-06-2016 Lipid 1996 panel *Lipid Profile CC PCP [facility] Work Phone: Start: 09-02-2015 End: 04-05-2017 *Hepatic Function Panel *Hepatic Function Panel [facility] Work Phone: Start: 09-02-2015 End: 04-05-2017 Lipid 1996 panel *Lipid Profile CC PCP [facility] Work Phone: Start: 07-25-2015 End: 05-20-2015 T4 free mass conc *T4 free [facility] Work Phone: Start: 07-25-2015 End: 05-20-2015 Thyrotropin Qn *TSH [facility] Work Phone: Start: 05-27-2015 End: 05-31-2015 Exc b9 lesion mrgn xcp sk tg t/a/l 1.1-2.0 cm Excision Benign Lesion Trunk/Arm/Leg 1.1-2.0 cm [facility] Work Phone: Start: 05-27-2015 End: 05-27-2015 Im adm prq id subq/im njxs 1 vaccine Administration Immunization >=8 years of age [facility] Work Phone: Start: 05-11-2015 End: 05-18-2015 Surgery Referral Surgery Referral Jess Foster, BREANNA, [address], [place], [address] [facility] Work Phone: Start: 2015 End: 05-20-2015 Thyrotropin Qn *TSH [facility] Work Phone: Start: 03-03-2015 End: 03-03-2015 *Hepatic Function Panel *Hepatic Function Panel [facility] Work Phone: Start: 03-03-2015 End: 03-03-2015 CHEF & OWNER CHEF & OWNER [facility] Work Phone: Start: 03-03-2015 End: 03-03-2015 Follow Up Appt 1 year Follow Up Appt 1 year [facility] Work Phone: Start: 03-03-2015 End: 03-03-2015 Lipid 1996 panel *Lipid Profile CC PCP [facility] Work Phone: Start: 11-13-2014 End: 03-03-2015 *Hepatic Function Panel *Hepatic Function Panel [facility] Work Phone: Start: 11-13-2014 End: 03-03-2015 Lipid 1996 panel *Lipid Profile CC PCP [facility] Work Phone: Start: 07-29-2014 End: 07-29-2014 CHEF & OWNER CHEF & OWNER [facility] Work Phone: Start: 07-29-2014 End: 07-29-2014 Follow Up Appt 6 months Follow Up Appt 6 months [facility] Work Phone: Start: 06-29-2014 End: 06-30-2014 ENT referral ENT referral [facility], [address] [place] [address], [id number] [facility] Work Phone: Start: 06-24-2014 End: 06-28-2014 T3 mass conc *T3-Total [facility] Work Phone: Start: 06-24-2014 End: 06-28-2014 T4 free mass conc *T4 free [facility] Work Phone: Start: 06-24-2014 End: 06-28-2014 T4 mass conc *T4 (Total) [facility] Work Phone: Start: 06-24-2014 End: 06-28-2014 Thyroglobulin Ab Qn *ATAB - Thyroglobulin Antibody [facility] Work Phone: Start: 06-24-2014 End: 06-28-2014 Thyroid stimulating immunoglobulins Qn (S) *TSIMM TSI Thyroid Stimulating Immunglob [facility] Work Phone: Start: 06-24-2014 End: 06-28-2014 Thyrotropin Qn *TSH [facility] Work Phone: Start: 06-24-2014 End: 06-28-2014 Us soft tissue head & neck real time imge docm US Thyroid (Soft tissue neck) [facility] Work Phone: Start: 06-16-2014 End: 06-16-2014 *BMP *BMP [facility] Work Phone: Start: 06-16-2014 End: 06-16-2014 Follow Up Appt 6 weeks Follow Up Appt 6 weeks [facility] Phone: Start: 06-16-2014 End: 07-16-2014 Follow Up Appt Other Follow Up Appt Other [facility] Work Phone: Start: 06-16-2014 End: 06-16-2014 MMM MMM [facility] Work Phone: Start: 06-16-2014 End: 06-16-2014 Thyroid horm uptk/thyroid hormone binding ratio Thyroid Panel (T-3/T-4/TSH) [facility] Phone: Start: 05-07-2014 End: 05-07-2014 *Hepatic Function Panel *Hepatic Function Panel [facility] Work Phone: Start: 05-07-2014 End: 05-07-2014 Follow Up Appt 6 weeks Follow Up Appt 6 weeks [facility] Phone: Start: 05-07-2014 End: 05-07-2014 Lipid 1996 panel *Lipid Profile CC PCP [facility] Work Phone: Start: 05-07-2014 End: 05-07-2014 MMM MMM [facility] Work Phone: Start: 11-06-2013 End: 11-06-2013 Follow Up Appt 6 months Follow Up Appt 6 months [facility] Work Phone: Start: 11-06-2013 End: 11-06-2013 MMM MMM [facility] Work Phone: Start: 10-08-2013 End: 11-04-2013 *Hepatic Function Panel *Hepatic Function Panel [facility] Work Phone: Start: 10-05-2013 End: 11-04-2013 Lipid 1996 panel *Lipid Profile CC PCP [facility] Work Phone: Start: 01-01-2012 End: 09-02-2013 *Hepatic Function Panel *Hepatic Function Panel [facility] Work Phone: Start: 01-01-2012 End: 01-01-2012 Follow Up Appt 1 year Follow Up Appt 1 year [facility] Work Phone: Start: 01-01-2012 End: 09-02-2013 Lipid 1996 panel *Lipid Profile [facility] Work Phone: Start: 05-22-2011 End: [...] BE BASED ON THE PRIMARY CLINICAL RECORDS. [employer] [facility]. provides no warranty or guarantee of the accuracy or completeness of information in this document.
--- OUTSIDE RECORDS SUMMARY | 2023-06-06 16:15 | XMS RPT_ITS | CCD ---
Author Name Unknown Address [address] [place] [address] Organization [facility] Care Team Providers Care Medical Language Specialist Name Role Phone Nae Reyes Unavailable DeFinis, Harumi Y Unavailable Unavailable DeFinis, Harumi Y Unavailable Unavailable Allergies Allergy Classification Reported Allergen(s) Allergy Type Date of Onset Reaction(s) Facility (3 sources) apis mellifera venom; Translations: [BEE STINGS] allergy to substance 5 [facility] Work Phone: [phone] (3 sources) Hmg-Coa Reductase Inhibitors (Statins) drug allergy 1 elevated liver enzymes [facility] Work Phone: (3 sources) Penicillin Drug Allergy 1 [facility] Work Phone: [phone] Medications Completed/Discontinued Medications Medication Drug Class(es) Dates Sig (Normalized) Sig (Original) hydroCHLOROthiazide 25 mg oral tablet (12 sources) Thiazide Diuretic Start: 4 take 1 tablet by mouth once daily HYDROCHLOROTHIAZIDE 25 MG TABS One tablet by mouth daily HYDROCHLOROTHIAZIDE [id number] Shannon Yadav PA-C Problems Active Problems Problem [...] 08:51-0400 BMI (Body Mass Index) 32.78 kg/m2 [facility] Work Phone: 04-02-2017 08:51-0400 BP Diastolic 90 mm[Hg] Hi[facility]umi DeFinis [facility] Work Phone: 04-02-2017 08:51-0400 BP Diastolic 92 mm[Hg] Harumi DeFinis [facility] Work Phone: 04-02-2017 08:51-0400 BP Systolic 142 mm[Hg] Harumi DeFinis [facility] Work Phone: 04-02-2017 08:51-0400 BP Systolic 130 mm[Hg] Hi[facility] DeFinis [facility] Work Phone: 04-02-2017 08:51-0400 Height 175.26 cm HiChinaumi DeFinis [facility] Work Phone: 04-02-2017 08:51-0400 Pulse (Heart Rate) 92 /min Harumi DeFinis [facility] Work Phone: 04-02-2017 08:51-0400 Respiratory Rate 20 /min Harumi DeFinis [facility] Work Phone: 04-02-2017 08:51-0400 Weight 100.7 kg Shustir DeFinis [facility] Work Phone: 03-06-2016 09:08-0400 BMI [...] Pulse (Heart Rate) 80 /min Nae Reyes [facility] Work Phone: Procedures Date Procedure [...] Panel Real Gonzalez Start: 03-06-2016 End: 03-06-2016 MASSEUR/MASSEUSE Oscar Meyer MD Start: 03-06-2016 End: 03-06-2016 [...] Panel Real Gonzalez Start: 03-03-2015 End: 03-03-2015 MASSEUR/MASSEUSE Oscar Meyer MD Start: 03-03-2015 End: 03-04-2015 [...] PA-C Work Phone: Start: 07-29-2014 End: 07-29-2014 MASSEUR/MASSEUSE Shannon Yadav PA-C Work Phone: Start: 07-29-2014 End: 07-30-2014 Documentation of current medications Shannon Yadav PA-C Work Phone: Start: 07-29-2014 End: 07-29-2014 Follow Up Appt 6 months Shannon ervin PA-C Work Phone: Start: 07-29-2014 End: 07-30-2014 Smoking cessation education Shannon Garcia PA-C Work Phone: Start: 06-24-2014 End: 06-28-2014 Thyroglobulin Ab [Units/volume] in Serum or Plasma Jd Jimenes [employer] Phone: Start: 06-24-2014 End: 06-28-2014 Thyroid stimulating immunoglobulins [Units/volume] in Serum Jd Jimenes [employer] Phone: Start: 06-24-2014 End: 06-28-2014 Thyrotropin [Units/volume] in Serum or Plasma Jd Jimenes [employer] Phone: Start: 06-24-2014 End: 06-28-2014 Thyroxine (T4) [Mass/volume] in Serum or Plasma Jd Jimenes [facility] Phone: Start: 06-24-2014 End: 06-28-2014 Thyroxine (T4) free [Mass/volume] in Serum or Plasma Jd Jimenes [employer] Phone: Start: 06-24-2014 End: 06-28-2014 Triiodothyronine (T3) [Mass/volume] in Serum or Plasma Jd Jimenes [employer] Phone: Start: 06-24-2014 End: 06-28-2014 soft tissue head & neck real time imge docm Jd Jimenes DO [employer] Phone: Start: 06-16-2014 End: 06-16-2014 *BMP Shannon [...] 04-05-2017 *Hepatic Function Panel *Hepatic Function Panel [facility] Work Phone: Start: 10-01-2017 End: 04-05-2017 Lipid 1996 panel *Lipid Profile CC PCP [facility] Work Phone: Start: 04-02-2017 End: 04-02-2017 *BMP *BMP [facility] Work Phone: Start: 04-02-2017 End: 04-02-2017 *Hepatic Function Panel *Hepatic Function Panel [facility] Work Phone: Start: 04-02-2017 End: 04-05-2017 JHR [facility] Work Phone: Start: 04-02-2017 End: 04-02-2017 Lipid 1996 panel *Lipid Profile CC PCP [facility] Work Phone: Start: 04-02-2017 End: 04-02-2017 Appointment Appointment [facility] Work Phone: Start: 09-03-2016 End: 04-05-2017 *Hepatic Function Panel *Hepatic Function Panel [facility] Work Phone: Start: 09-03-2016 End: 04-05-2017 Lipid 1996 panel *Lipid Profile CC PCP [facility] Work Phone: Start: 03-06-2016 End: 03-06-2016 *BMP *BMP [facility] Work Phone: Start: 03-06-2016 End: 03-06-2016 *Hepatic Function Panel *Hepatic Function Panel [facility] Work Phone: Start: 03-06-2016 End: 03-06-2016 MASSEUR/MASSEUSE MASSEUR/MASSEUSE [facility] Work Phone: Start: 03-06-2016 End: 03-06-2016 Follow Up Appt 1 year Follow Up Appt 1 year [facility] Work Phone: Start: 03-06-2016 End: 03-06-2016 Lipid 1996 panel *Lipid Profile CC PCP [facility] Work Phone: Start: 09-02-2015 End: 04-05-2017 *Hepatic Function Panel *Hepatic Function Panel [facility] Work Phone: Start: 09-02-2015 End: 04-05-2017 Lipid 1996 panel *Lipid Profile CC PCP [facility] Work Phone: Start: 07-25-2015 End: 05-20-2015 T4 free mass conc *T4 free [facility] Work Phone: Start: 07-25-2015 End: 05-20-2015 Thyrotropin Qn *TSH [facility] Work Phone: Start: 05-27-2015 End: 05-31-2015 Exc b9 lesion mrgn xcp sk tg t/a/l 1.1-2.0 cm Excision Benign Lesion Trunk/Arm/Leg 1.1-2.0 cm [facility] Work Phone: Start: 05-27-2015 End: 05-27-2015 Im adm prq id subq/im njxs 1 vaccine Administration Immunization >=8 years of age [facility] Work Phone: Start: 05-11-2015 End: 05-18-2015 Surgery Referral Surgery Referral Jess Foster, BREANNA, [address], [place], [address] [facility] Work Phone: Start: 2015 End: 05-20-2015 Thyrotropin Qn *TSH [facility] Work Phone: Start: 03-03-2015 End: 03-03-2015 *Hepatic Function Panel *Hepatic Function Panel [facility] Work Phone: Start: 03-03-2015 End: 03-03-2015 MASSEUR/MASSEUSE MASSEUR/MASSEUSE [facility] Work Phone: Start: 03-03-2015 End: 03-03-2015 Follow Up Appt 1 year Follow Up Appt 1 year [facility] Work Phone: Start: 03-03-2015 End: 03-03-2015 Lipid 1996 panel *Lipid Profile CC PCP [facility] Work Phone: Start: 11-13-2014 End: 03-03-2015 *Hepatic Function Panel *Hepatic Function Panel [facility] Work Phone: Start: 11-13-2014 End: 03-03-2015 Lipid 1996 panel *Lipid Profile CC PCP [facility] Work Phone: Start: 07-29-2014 End: 07-29-2014 MASSEUR/MASSEUSE MASSEUR/MASSEUSE [facility] Work Phone: Start: 07-29-2014 End: 07-29-2014 Follow Up Appt 6 months Follow Up Appt 6 months [facility] Work Phone: Start: 06-29-2014 End: 06-30-2014 ENT referral ENT referral [facility], [address] [place] [address], [id number] [facility] Work Phone: Start: 06-24-2014 End: 06-28-2014 T3 mass conc *T3-Total [facility] Work Phone: Start: 06-24-2014 End: 06-28-2014 T4 free mass conc *T4 free [facility] Work Phone: Start: 06-24-2014 End: 06-28-2014 T4 mass conc *T4 (Total) [facility] Work Phone: Start: 06-24-2014 End: 06-28-2014 Thyroglobulin Ab Qn *ATAB - Thyroglobulin Antibody [facility] Work Phone: Start: 06-24-2014 End: 06-28-2014 Thyroid stimulating immunoglobulins Qn (S) *TSIMM TSI Thyroid Stimulating Immunglob [facility] Work Phone: Start: 06-24-2014 End: 06-28-2014 Thyrotropin Qn *TSH [facility] Work Phone: Start: 06-24-2014 End: 06-28-2014 Us soft tissue head & neck real time imge docm US Thyroid (Soft tissue neck) [facility] Work Phone: Start: 06-16-2014 End: 06-16-2014 *BMP *BMP [facility] Work Phone: Start: 06-16-2014 End: 06-16-2014 Follow Up Appt 6 weeks Follow Up Appt 6 weeks [employer] Phone: Start: 06-16-2014 End: 07-16-2014 Follow Up Appt Other Follow Up Appt Other [facility] Work Phone: Start: 06-16-2014 End: 06-16-2014 MMM MMM [facility] Work Phone: Start: 06-16-2014 End: 06-16-2014 Thyroid horm uptk/thyroid hormone binding ratio Thyroid Panel (T-3/T-4/TSH) [facility] Phone: Start: 05-07-2014 End: 05-07-2014 *Hepatic Function Panel *Hepatic Function Panel [employer] Work Phone: Start: 05-07-2014 End: 05-07-2014 Follow Up Appt 6 weeks Follow Up Appt 6 weeks [facility] Phone: Start: 05-07-2014 End: 05-07-2014 Lipid 1996 panel *Lipid Profile CC PCP [facility] Work Phone: Start: 05-07-2014 End: 05-07-2014 MMM MMM [facility] Work Phone: Start: 11-06-2013 End: 11-06-2013 Follow Up Appt 6 months Follow Up Appt 6 months [facility] Work Phone: Start: 11-06-2013 End: 11-06-2013 MMM MMM [facility] Work Phone: Start: 10-08-2013 End: 11-04-2013 *Hepatic Function Panel *Hepatic Function Panel [facility] Work Phone: Start: 10-05-2013 End: 11-04-2013 Lipid 1996 panel *Lipid Profile CC PCP [facility] Work Phone: Start: 01-01-2012 End: 09-02-2013 *Hepatic Function Panel *Hepatic Function Panel [facility] Work Phone: Start: 01-01-2012 End: 01-01-2012 Follow Up Appt 1 year Follow Up Appt 1 year [facility] Work Phone: Start: 01-01-2012 End: 09-02-2013 Lipid 1996 panel *Lipid Profile [facility] Work Phone: Start: 05-22-2011 End: [...] BE BASED ON THE PRIMARY CLINICAL RECORDS. [employer] [facility]. provides no warranty or guarantee of the accuracy or completeness of information in this document.
--- NOTE | 2023-06-06 16:36 | ECHOCS_ITS ---
Reason For Study: ARRHYTHMIA Procedure This was a 2D Doppler, Color Flow transthoracic echocardiogram. The study was technically difficult. Exam performed portable in patient room. Left Ventricle Normal LV size. Left ventricular systolic function is normal. Normal diastology for age. The estimated ejection fraction is 60 %. No regional wall motion abnormalities noted. Right Ventricle Normal RV size. Normal systolic function. Atria The left and right atria are normal. Mitral Valve Mild mitral annular calcification. Tricuspid Valve Normal tricuspid valve. Aortic Valve Trisinus/trileaflet aortic valve. Pulmonic Valve Normal pulmonic valve. Great Vessels Normal aortic root. Pericardium/Pleural Epicardial fat. No pericardial effusion. Medication Diluted definity 3.5ml given slow IV push to enhance endocardial definition. MMode/2D Measurements & Calculations LVIDd: 5.0 cm IVSd: 1.0 cm Ao root diam: 3.3 cm LVIDs: 3.3 cm LVPWd: 0.92 cm RVDd: 3.2 cm FS: 33.9 % LAV(MOD-bp): 28.2 ml LVAd ap4: 29.5 cm2 SV(MOD-sp4): 60.1 ml LAV(MOD-bp) Indexed: 13.3 ml/m2 LVLd ap4: 7.6 cm LAV(MOD-sp2): 30.6 ml EDV(MOD-sp4): 91.3 ml LAV(MOD-sp4): 26.2 ml EDV(sp4-el): 97.3 ml LVAs ap4: 16.5 cm2 LVLs ap4: 7.0 cm ESV(MOD-sp4): 31.2 ml ESV(sp4-el): 33.4 ml EF(MOD-sp4): 65.8 % EF(sp4-el): 65.7 % SV(sp4-el): 63.9 ml LA A4 area: 13.4 cm2 LA dimension(2D): 3.5 cm RA A4 area: 12.0 cm2 Time Measurements MV dec time: 0.27 sec Doppler Measurements & Calculations MV E max damien: 75.8 cm/sec Lat Peak E' Damien: 9.9 cm/sec Med Peak E' Damien: 7.6 cm/sec MV A max damien: 103.0 cm/sec E/E' lat: 7.7 E/E' med: 10.0 MV E/A: 0.74 Ao V2 max: 172.3 cm/sec LV V1 max: 135.9 cm/sec PA V2 max: 89.6 cm/sec Ao max P.9 mmHg LV V1 max P.4 mmHg ECHO/Echo Complete W/ Contrast Interpretation Summary The estimated ejection fraction is 60 %. Mild mitral annular calcification. Epicardial fat. No significant change from previous echocardiogram. Compared to prior study, there is no significant change. The study was technica lly difficult. Contrast injection was performed. Ordering Physician: Jd Peralta Referring Physician: JAMIR SHER Performed By: Shanna Abel RDCS
--- NOTE | 2023-06-06 16:38 | HP.PCM.HOS_ITS ---
HPI - General General Date of Admission: 06/06/23 Date of Service: 06/06/23 Chief Complaint: Atrial tachycardia, elevated troponin HPI Narrative LAMONT VEE, is a 58 M who presents to the emergency room at [facility] with complaints of increased heart rate which started this morning, when the patient was placed on the monitor he had SVT at a rate of approximately 210 bpm, patient was given adenosine 6 mg and then adenosine 12 mg with resolution of the SVT. Patient stated he had 1 other episode that was similar before he had his thyroidectomy, he denied any chest pain during this episode of tachycardia. Patient had repeat cardiac enzymes which then elevated, a third set of cardiac enzymes revealed even more elevation of the troponin. Patient's potassium was slightly low., White blood cell count was 12,000 Conversations were carried out with the patient, initially he did not want to be admitted, his mother had years ago after heart catheterization and he was apprehensive about that. Patient's arrived however and talked to the patient and I had a discussion with the patient and he agreed to be admitted. I discussed the case with Dr. Soni, he is going to perform a cardiac cathete rization on the patient this afternoon. Patient agrees to this. [facility] Medical History (Updated 06/06/23 @ 16:[address] Marisa Alanis DO) Anxiety Dizziness Essential (primary) hypertension Obesity Pure hypercholesterolemia Home Medications levothyroxine 137 mcg tablet 137 mcg PO DAILY thyroid 04/03/18 [History Last Taken Unknown] rosuvastatin 20 mg tablet 20 mg PO DAILY cholesterol #90 tabs 05/11/19 [Rx Last Taken Unknown] lisinopril 20 mg tablet 20 mg PO QDAY blood pressure #90 tabs 08/25/19 [Rx Last Taken Unknown] hydrochlorothiazide 12.5 mg tablet 12.5 mg PO DAILY fluid overload #90 tabs 02/16/20 [Rx Last Taken Unknown] Allergy/AdvReac Type Severity Reaction Status Date / Time Penicillins Allergy Unknown Verified 06/06/23 08:40 Family History Father Hypertension Son Hypertension Sister Hyperlipemia Surgical History History of thyroidectomy History of tonsillectomy Social History Smoking Status: Light Smoker (<10/day) ROS Constitutional Constitutional: Denies anorexia, change in weight, chills, fatigue, fever(s), night sweats or weakness Eyes Eyes: Denies blurry vision, change in vision, discharge from eye(s) or eye pain Cardiovascular Cardiovascular: Reports rapid heart rate; Denies chest pain, claudication, edema or palpitations Respiratory/Chest Respiratory/Chest: Denies cough, dyspnea, hemoptysis, shortness of breath at res t or shortness of breath with exertion Gastrointestinal Gastrointestinal: Denies abdominal pain, constipation, diarrhea, hematemesis, hematochezia, melena, nausea or vomiting Genitourinary Genitourinary: Denies dysuria, hematuria, urinary frequency, urinary hesitancy, urinary incontinence or urinary urgency Musculoskeletal Musculoskeletal: Denies back pain, joint pain, joint stiffness, joint swelling, myalgias or neck pain Neurologic Neurologic: Denies abnormal gait, abnormal speech, dizziness, focal weakness, headache(s), loss of vision, numbness, other visual disturbances, paresthesias, syncope or tingling Psychiatric Psychiatric: Denies anxiety, cognitive impairment, depression, irritability, mood swings or suicidal ideation Endocrine Endocrinology: Denies change in body appearance, cold intolerance, excessive sweating, heat intolerance, polydipsia or polyuria Hematologic/Lymphatic Hematologic/Lymphatic: Denies none, anemia, easy bleeding, easy bruising or lymphadenopathy Allergic/Immunologic Allergic/Immunologic: Denies rhinitis, urticaria, eczemia or asthma Vital Signs Vital Signs Vital Signs: 06/06/23 08:42 06/06/23 09:05 06/06/23 09:06 Temperature 97.6 F L Temperature Source Temporal Pulse Rate 220 H 105 H Respiratory Rate 20 H 16 Respiratory Effort Normal Non-Labored Blood Pressure 109/95 H 110/87 H Blood Pressure Mean 99 94 Blood Pressure Source Blood Pressure Position Blood Pressure Location Pulse Ox 95 96 Oxygen Delivery Method Room Air Room Air 06/06/23 11:00 06/06/23 11:29 06/06/23 12:00 Temperature Temperature Source Pulse Rate 88 78 Respiratory Rate 15 22 H Respiratory Effort Blood Pressure 122/86 H 133/98 H Blood Pressure Mean 98 109 Blood Pressure Source Blood Pressure Position Blood Pressure Location Pulse Ox 97 97 95 Oxygen Delivery Method Room Air Room Air Room Air 06/06/23 13:00 06/06/23 14:00 06/06/23 15:02 Temperature Temperature Source Pulse Rate 67 72 75 Respiratory Rate 16 16 18 Respiratory Effort Blood Pressure 120/85 H 128/92 H 128/92 H Blood Pressure Mean 96 104 104 Blood Pressure Source Blood Pressure Position Blood Pressure Location Pulse Ox 95 98 98 Oxygen Delivery Method Room Air Room Air Room Air 06/06/23 15:02 06/06/23 16:37 Temperature 98.2 F Temperature Source Oral Pulse Rate 7 L 65 Respiratory Rate 18 16 Respiratory Effort Blood Pressure 128/92 H 101/68 Blood Pressure Mean 104 79 Blood Pressure Source Monitor Blood Pressure Position Semi-Fowlers Blood Pressure Location Left Arm Pulse Ox 98 96 Oxygen Delivery Method Room Air Weight Weight: 101.423 kg Body Mass Index (BMI) 34.0 Physical Exam Const alert, oriented x3, no apparent distress and healthy appearing General Appearance: cooperative, well kempt and well developed Orientation / Consciousness: awake, oriented to person, oriented to place and o riented to time HEENT normocephalic and moist oral mucous membranes Eyes PERRL, EOMs intact bilaterally and conjunctivae normal Neck supple, no JVD, thyroid normal and no carotid bruits General: trachea midline Resp normal respiratory effort and clear to auscultation bilaterally Auscultation: Negative for rales, rhonchi or wheezes Cardio regular rate, regular rhythm, no murmurs, no rub and no gallops GI normal to inspection, nondistended, normoactive bowel sounds, soft to palpation, non-tender and non-distended Extremity no clubbing, cyanosis or edema Skin no rashes or lesions noted General Skin Exam: no breakdown Neuro oriented x3, CN's II-XII intact bilaterally, no focal motor deficits and no sensory deficits noted Sensorium / Orientation: awake and alert Speech: speech normal Psych affect normal Results Lab / Micro Data 06/06/23 08:45 06/06/23 08:45 Labs: Laboratory Results - last 24 hr 06/06/23 08:45: WBC 12.0 H, RBC 5.63, Hgb 17.1 H, Hct 49.7, MCV 88.3, MCH 30.4, MCHC 34.4, RDW Std Deviation 42.1, RDW Coeff of Fabiana 13.0, Plt Count 287, MPV 8.8, Immature Gran % (Auto) 0.700, Neut % (Auto) 48.8, Lymph % (Auto) 36.3, [place] % (Auto) 9.3, Eos % (Auto) 3.5, Baso % (Auto) 1.4 H, Absolute Neuts (auto) 5.9, Absolute Lymphs (auto) 4.37, Nucleated RBC % 0, Sodium 138, Potassium 3.4 L, Chloride 101, Carbon Dioxide 27.0, Anion Gap 10, BUN 21 H, Creatinine 1.13, Estim Creat Clear Calc 67.26, Est GFR (MDRD) Af Amer 85, Est GFR (MDRD) Non-Af 7 0, BUN/Creatinine Ratio 18.6, Glucose 112 H, Calcium 8.9, Magnesium 2.2, Trop onin I High Sens 8, TSH 2.74 06/06/23 11:25: Troponin I High Sens 107 H 06/06/23 13:25: Troponin I High Sens 152 H* Rhythm Strip Rhythm Strip: SVT Rate: 210 Ectopy: None Imagaing Radiology Impression Chest X-Ray 06/06/23 09:25 IMPRESSION: Normal x-ray examination of the chest. Electronically Signed: Jimenez Gordon MD at 9:42 EST , Assessment & Plan Assessment/Plan (1) Elevated troponin: PLAN: Plan 1. Supraventricular tachycardia-converted to normal sinus rhythm, patient will be placed into observation status on PCU, he will be monitored on telemetry, echocardiogram was ordered for tomorrow #2 elevated troponin-etiology unclear, patient has no complaints of any chest pain-patient will undergo cardiac catheterization this afternoon and be seen by cardiology. #3 hypothyroidism-patient states that his family physician monitors his thyroid medication, patient's TSH today in the emergency room was 2.74 #4 hyperlipidemia-patient is on a statin #5 essential hypertension-patient is on lisinopril and hydrochlorothiazide #6 hypokalemia-mild, patient will be given oral potassium Total clinical time spent by myself addressing the patient's medical issues, reviewing all of his data, and collaborating with patient's care team: 55 minutes Charges/Coding Visit Charges Inpatient E&M: 68310 Init Hosp L2
--- NOTE | 2023-06-06 16:45 | PRO.PCM_ITS ---
Procedure Report Date of Procedure: 06/06/23 Left heart catheterization; 1. Selective left coronary angiography 2. Selective right coronary angiography 3. Measurement of LVEDP 4. Left ventricular gram 6. Placement of TR band closure right radial artery arteriotomy site Consent; Risk and benefit of procedure explained detail patient agreed to proceed informed consent obtained Preprocedure diagnosis 58-year-old patient with history of paroxysmal supraventricular tachycardia Hypertension Hyperlipidemia patient presented to the ER [facility] where he had episode of palpitation and chest pain with SVT converted to sinus with Adenocard 12 mg maintain sinus rhythm However he still having mild discomfort in the chest and noted blood level Of cardiac biomarkers high sensitive troponins are elevated Patient had a history of previous SVT and also history of Hypothyroidism and has been on levothyroxine Patient has significant family history of CAD mother had a history of NC We decided to take him to the [facility] due to the elevated cardiac biomarker and symptoms of chest pain. Diagnostic catheter used; 1. 5 [place] JL 3 5 2. 5 [place] JR4 Procedure in detail; Patient brought to the [facility] from the ER as a urgent case Right radial artery area prepped and draped in the usual sterile fashion Access obtained from the right radial artery A cocktail was given with heparin nitroglycerin and verapamil Then we will proceed with a diagnostic catheter 5 [place] Islander JL 3 5 advancing wire to cannulate the left main Following this multiple views the left main coronary artery obtained Following this catheter exchanged for 5 [place] JR4 and selective angiogram coronary calcium obtained Following this or angiogram we will study Then we will proceed with a pigtail catheter advancing over the and placed into the mid left ventricle Measurement of LVEDP recorded As well as the ventriculogram and serrated projection using a total of 25 cc of contrast. Hemodynamics; 1. LVEDP measuring around 40 mmHg Low ventriculogram revealed normal LV systolic function Ejection fraction the range of 55 to 60% 3. No systolic gradient across aortic valve 4. No mitral regurgitation noted Coronary angiography; 1. Left main large normal angiographically, bifurcating into LAD and left circumflex 2. Left anterior descending is large but did not reach all the way to the apex Noted slow flow in the LAD however there is no obstructive atherosclerosis The mid LAD had nonobstructive sclerosis of around 20% LAD has a large prominent Pharris diagonal branch and has an abundant septal branches as well The left circumflex artery is normal angiographically 4. RCA is large dominant normal angiographically Conclusion recommendations this patient with paroxysmal supraventricular tachycardia converted to normal sinus rhythm on Adenocard 12 mg Added beta-blockers with current treatment. 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 Brown for continuation of cardiac care. Georgia Soni MD,FAC,[facility]
--- NOTE | 2023-06-06 17:03 | CON.PCM.CA_ITS ---
Assessment & Plan Assessment/Plan (1) Pure hypercholesterolemia: (2) Essential (primary) hypertension: (3) Paroxysmal SVT (supraventricular tachycardia): (4) Elevated troponin: PLAN: Plan 58-year-old patient with known history of paroxysmal SVT Presented to the hospital with episode of SVT heart rate of around 210 Patient given Adenocard 12 mg converted to sinus rhythm And has, elevated cardiac biomarker with high sensitive troponin Up to 152 Patient was taken to the cardiac Water Service Supervisor. Demonstrated normal LV function with nonobstructive atherosclerosis involving the mid LAD of around 20-30% Cardiac care plan recommendations; Based on his clinical presentation he had episode of paroxysmal supraventricular tachycardia converted to sinus rhythm on Adenocard 12 mg Will add beta-clara 25 mg twice daily and patient to follow-up as an outpatient with his primary director business travel if had further episode of paroxysmal SVT he may require ablation. Patient will be admitted for observation over the night and would recommend to start on aspirin Other medical problem include history of hypertension Hyperlipidemia History of hypothyroidism and has been on thyroxine I will defer to the medical team for management of other medical problems. From cardiac standpoint patient to follow-up with his primary director business travel Georgia Soni MD,[facility] HPI Consult Data Date of Consult: 06/06/23 HPI Narrative Reason for Consultation: PSVT HPI Narrative: LAMONT VEE, is a 58 M who presents [facility] Medical History (Updated 06/06/23 @ 16:[address] Marisa Alanis, ) Anxiety Dizziness Essential (primary) hypertension Obesity Pure hypercholesterolemia Home Medications levothyroxine 137 mcg tablet 137 mcg PO DAILY thyroid 04/03/18 [History Last Taken Unknown] rosuvastatin 20 mg tablet 20 mg PO DAILY cholesterol #90 tabs 05/11/19 [Rx Last Taken Unknown] lisinopril 20 mg tablet 20 mg PO QDAY blood pressure #90 tabs 08/25/19 [Rx Last Taken Unknown] hydrochlorothiazide 12.5 mg tablet 12.5 mg PO DAILY fluid overload #90 tabs 02/16/20 [Rx Last Taken Unknown] Allergy/AdvReac Type Severity Reaction Status Date / Time Penicillins Allergy Unknown Verified 06/06/23 08:40 Family History Father Hypertension Son Hypertension Sister Hyperlipemia Surgical History History of thyroidectomy History of tonsillectomy Social History Smoking Status: Light Smoker (<10/day) Physical Exam Cardio Cardio Narrative: Patient cardiac technician showed SVT Converted to sinus rhythm Cardiovascular exam; S1-S2 regular Chest exam clear to auscultation bilaterally Examination lower extremity no clubbing no cyanosis no lower extremity Risk Stratification Risk Stratification Applicable: Yes Age >/= 65: No >/= 3 CAD Risk Factors (HTN, HLD, DM, family hx of CAD, or current smoker): Yes Aspirin Use in the Past 7 Days: Yes Severe Angina (>/= episodes in 24 hours): No EKG ST Changes >/= 0.5mm: No Positive Cardiac Marker: Yes DAVID Risk Stratification Score: 3 DAVID % Risk: 13% Risk Objective Data Vital Signs: Vital Signs Temp Pulse Resp BP Pulse Ox O2 Del Method 98.2 F 65 16 95/71 97 Room Air 06/06/23 16:37 06/06/23 16:45 06/06/23 16:45 06/06/23 16:45 06/06/23 16:45 06/06/23 16:45 Oxygen Delivery Method Room Air Weight: 219 lb 12.814 oz Body Mass Index (BMI) 33.4 Lab / Micro Data 06/06/23 08:45 06/06/23 08:45 Labs: Laboratory Results - last 24 hr 06/06/23 08:45: WBC 12.0 H, RBC 5.63, Hgb 17.1 H, Hct 49.7, MCV 88.3, MCH 30.4, MCHC 34.4, RDW Std Deviation 42.1, RDW Coeff of Fabiana 13.0, Plt Count 287, MPV 8.8, Immature Gran % (Auto) 0.700, Neut % (Auto) 48.8, Lymph % (Auto) 36.3, [place] % (Auto) 9.3, Eos % (Auto) 3.5, Baso % (Auto) 1.4 H, Absolute Neuts (auto) 5.9, Absolute Lymphs (auto) 4.37, Nucleated RBC % 0, Sodium 138, Potassium 3.4 L, Chloride 101, Carbon Dioxide 27.0, Anion Gap 10, BUN 21 H, Creatinine 1.13, Estim Creat Clear Calc 67.26, Est GFR (MDRD) Af Amer 85, Est GFR (MDRD) Non-Af 70, BUN/Creatinine Ratio 18.6, Glucose 112 H, Calcium 8.9, Magnesium 2.2, Troponin I High Sens 8, TSH 2.74 06/06/23 11:25: Troponin I High Sens 107 H 06/06/23 13:25: Troponin I High Sens 152 H* Rhythm Strip Rhythm Strip: SVT Rate: 210 Ectopy: None Cardiology Labs/Tests 06/06/23 08:45: WBC 12.0 H, RBC 5.63, Hgb 17.1 H, Hct 49.7, MCV 88.3, MCH 30.4, MCHC 34.4, Plt Count 287, MPV 8.8, Immature Gran % (Auto) 0.700, Neut % (Auto) 48.8, Lymph % (Auto) 36.3, [place] % (Auto) 9.3, Eos % (Auto) 3.5, Baso % (Auto) 1.4 H, Absolute Neuts (auto) 5.9, Nucleated RBC % 0, Sodium 138, Potassium 3.4 L , Chloride 101, Carbon Dioxide 27.0, Anion Gap 10, BUN 21 H, Creatinine 1.13, Est GFR (MDRD) Af Amer 85, Est GFR (MDRD) Non-Af 70, BUN/Creatinine Ratio 18.6, Glucose 112 H, Calcium 8.9, Magnesium 2.2 Rhythm: EKG: ECHO: Stress Test: Cardiac Cath: PCI: CT Surgery: Holter monitor: EPS: PPM: CXR: Chest CT Scan: Radiography Diagnostic Testing: Radiology Impression Chest X-Ray 06/06/23 09:25 IMPRESSION: Normal x-ray examination of the chest. Electronically Signed: Jimenez Gordon MD at 9:42 EST ,
[2023-06-06] MEDS: Potassium Chloride Oral Tablet 20 MEQ 40 MEQ PO (17:40)
[2023-06-07 02:56] VITALS: BP 108/78; PULSE 65; RESP 18; TEMP 36.6; O2SAT 93
[2023-06-07] MEDS: Levothyroxine 125 MCG Tablet PO (06:27)
[2023-06-07 08:04] VITALS: BP 119/88; PULSE 73; RESP 16; TEMP 37.1; O2SAT 96
[2023-06-07] MEDS: hydroCHLOROthiazide 12.5mg 12.5 MG PO (08:08)
[2023-06-07] MEDS: Lisinopril 40 MG Tablet PO (08:08)
[2023-06-07] MEDS: Atorvastatin Calcium 40 MG Tablet PO (08:08)
--- NOTE | 2023-06-07 12:04 | PCM.DC ---
Discharge Instructions Diet Discharge Diet: Low fat / Low cholesterol Activity Discharge Activity: Return to Normal Activity Dressing / Incision Call your doctor if you observe: Fever of 101 or Higher, Shortness of breath, Dizziness, Fainting spells, Swelling in the ankles, Chest pain and Increased palpitations (irregular heartbeat) Follow Up Care Test Results: Test results from this visit will be discussed in further detail at your follow-up appointment, if applicable. Discharge Plan Admission Admit Date/Time: 06/06/23 15:27 Attending Provider: Justo Akhtar Primary Care Provider: Juan David Purcell Consulting Providers: Georgia Soni; Jd Peralta Discharge Orders/Prescriptions Prescriptions: New metoprolol tartrate 25 mg tablet 25 mg PO BID Qty: 60 0RF Continued levothyroxine 137 mcg tablet 125 mcg PO DAILY hydrochlorothiazide 12.5 mg tablet 25 mg PO DAILY lisinopril 40 mg tablet 40 mg PO DAILY rosuvastatin 20 mg tablet 20 mg PO DAILY Qty: 90 3RF Discontinued lisinopril 20 mg tablet 40 mg PO QDAY levothyroxine 125 mcg tablet 125 mcg PO DAILY hydrochlorothiazide 25 mg tablet 25 mg PO DAILY Patient Comments: TAKE 1 TABLET BY MOUTH EVERY DAY Referrals / Follow Up: Juan David Purcell MD [Primary Care Provider] - Floyd Nunez NP, [employer] [Med Staff - [facility] Practice Prof] - 07/10/23 1:30 pm Disposition Disposition (needs filled in before D/C Order can be placed): Home, Self Care
[2023-06-07 12:09] VITALS: BP 125/78; PULSE 72; RESP 14; TEMP 37; O2SAT 99
--- NOTE | 2023-06-07 14:21 | DS.PCM_ITS ---
Providers Date of Admission: 06/06/23 Primary Care Physician: Dr. Juan David Purcell MD Consultations 06/06/23 16:36 Consult: Cardiology Routine Consulting Provider: Georgia Soni Reason for Consult: SVT, elevated troponin EMERGENT Consult: No MD Notified: Yes Date Notified: 06/06/23 Time Notified: 15:29 Method of Notification: Verbal Reason For Visit: ELEVATED TROP Diagnosis Discharge Diagnosis (1) Pure hypercholesterolemia: Status: Chronic Code(s): E78.00 - Pure hypercholesterolemia, unspecified (2) Essential (primary) hypertension: Status: Chronic Code(s): I10 - Essential (primary) hypertension (3) Paroxysmal SVT (supraventricular tachycardia): Status: Acute Code(s): I47.10 - Supraventricular tachycardia, unspecified (4) Elevated troponin: Status: Acute Code(s): R79.89 - Other specified abnormal findings of blood chemistry Medications at Discharge Home Medications levothyroxine 137 mcg tablet 125 mcg PO DAILY thyroid 04/03/18 rosuvastatin 20 mg tablet 20 mg PO DAILY cholesterol #90 tabs 05/11/19 hydrochlorothiazide 12.5 mg tablet 25 mg PO DAILY fluid overload 06/06/23 lisinopril 40 mg tablet 40 mg PO DAILY blood pressure 06/07/23 metoprolol tartrate 25 mg tablet 25 mg PO BID #60 tabs 06/07/23 Hospital Course Operations None Procedures Cardiac catheterization Summary of Care Provided Minutes Spent on Discharge: 33 Hospital Course: Per HPI: LAMONT VEE, is a 58 M who presents to the emergency room at [facility] with complaints of increased heart rate which started this morning, when the patient was placed on the monitor he had SVT at a rate of approximately 210 bpm, patient was given adenosine 6 mg and then adenosine 12 mg with resolution of the SVT. Patient stated he had 1 other episode that was similar before he had his thyroidectomy, he denied any chest pain during this episode of tachycardia. Patient had repeat cardiac enzymes which then elevated, a third set of cardiac enzymes revealed even more elevation of the troponin. Patient's potassium was slightly low., White blood cell count was 12,000 Conversations were carried out with the patient, initially he did not want to be admitted, his mother had years ago after heart catheterization and he was apprehensive about that. Patient's arrived however and talked to the patient and I had a discussion with the patient and he agreed to be admitted. I discussed the case with Dr. Soni, he is going to perform a cardiac catheterization on the patient this afternoon. Patient agrees to this. Hospital Course: 1. Paroxysmal supraventricular tachycardia with elevated troponin?58-year-old male presented to the hospital with chest pain and tachycardia, he was given a dose of adenosine 6 mg then 12 mg that finally resolved his SVT. He had an elevated troponin so was taken for cardiac cath which was normal. We decreased his dose of hydrochlorothiazide and added twice daily metoprolol at 25 mg to help control his heart rate. I do recommend that he follow-up with cardiology as an outpatient. I extensive discussion about lifestyle modifications inclu ding exercise and diet. I discussed with him the plan for discharge today he expressed understanding the risk benefits going home and like to go home today. I did not make any other changes to his home medications other than decreasing his hydrochlorothiazide to 12.5 mg daily and starting him on metoprolol 25 mg p.o. twice daily. Of note on admission his TSH was at a normal level of 2.74. Physical Exam Narrative General: Alert, Oriented x3, Cooperative, No apparent distress HEENT: Atraumatic, PERRLA, EOMI, Normocephalic Oral: Moist Mucosa Neck: Supple, No JVD Lungs: Clear to auscultation, Normal air movement, No rhonchi, No wheeze, No rales Cardiovascular: Regular rate, Regular Rhythm, Normal S1, Normal S2, No murmurs Abdomen: Soft, Non Tender, Non-Distended, No Hepato-splenomegaly Extremities: No edema, Capillary Refill Less than 3 Seconds Skin: No rashes, No breakdown Musculoskeletal: No Tenderness to Palpation of Joints or Extremities Neurological: Cranial nerves II-XII grossly intact, Motor Exam 5/5 strength throughout, Sensory exam intact to light touch and pain Psych/Mental Status: Normal Affect, Appropriate Weight / BMI Weight Weight: 219 lb 12.814 oz Body Mass Index (BMI) 33.4 ABG / Lab / Microbiology Data 06/06/23 08:45 06/06/23 08:45 D/C Instructions Discharge Diet: Low fat / Low cholesterol Call your doctor if you observe: Fever of 101 or Higher, Shortness of breath, Dizziness, Fainting spells, Swelling in the ankles, Chest pain and Increased palpitations (irregular heartbeat) Meaningful Use Info Meaningful Use Diagnoses (Choose all that apply): None applicable Discharge Plan Admission Admit Date/Time: 06/06/23 15:27 Attending Provider: Justo Akhtar Primary Care Provider: Juan David Purcell Consulting Providers: Georgia Soni; Jd Peralta Discharge Orders/Prescriptions Prescriptions: New metoprolol tartrate 25 mg tablet 25 mg PO BID Qty: 60 0RF Continued levothyroxine 137 mcg tablet 125 mcg PO DAILY hydrochlorothiazide 12.5 mg tablet 25 mg PO DAILY lisinopril 40 mg tablet 40 mg PO DAILY rosuvastatin 20 mg tablet 20 mg PO DAILY Qty: 90 3RF Discontinued lisinopril 20 mg tablet 40 mg PO QDAY levothyroxine 125 mcg tablet 125 mcg PO DAILY hydrochlorothiazide 25 mg tablet 25 mg PO DAILY Patient Comments: TAKE 1 TABLET BY MOUTH EVERY DAY Referrals / Follow Up: Juan David Purcell MD [Primary Care Provider] - Floyd Nunez [employer], [employer] [Med Staff - [facility] Practice Prof] - 07/10/23 1:30 pm Disposition Disposition (needs filled in before D/C Order can be placed): Home, Self Care Charges/Coding Visit Charges Inpatient E&M: 16326 Disch Hosp >30min
== END 2023-06-07 12:09 | disposition home or self-care (01) ==
LOC: ED 10:56 → PCU 15:00
PROVIDERS: Admitting Provider Internal Medicine; Emergency Provider Emergency Medicine; PCP Family Medicine; Visit Provider Family Medicine
DX: I47.10 Supraventricular tachycardia, unspecified (principal); E78.00 Pure hypercholesterolemia, unspecified; I10 Essential (primary) hypertension; R77.8 Other specified abnormalities of plasma proteins; F17.200 Nicotine dependence, unspecified, uncomplicated; E89.0 Postprocedural hypothyroidism; Z79.899 Other long term (current) drug therapy; Z79.890 Hormone replacement therapy; E87.6 Hypokalemia; R94.31 Abnormal electrocardiogram [ECG] [EKG]; R07.89 Other chest pain
CPT/HCPCS: 71046; 80048; 83735; 84443; 84484; 85025; 93005; 93306; 93458; 96361; 96374; 99152; 99153; 99221; 99285; 99406; C1894; J7030; Q9957; Q9967; A4216; C1769; C8929; G0378; J0153

== ENCOUNTER → 2023-06-13 | Outpatient (CLI) | payer OTHER, SELFPAY ==
[2023-06-13 17:26] LABS: Absolute Lymphocyte Count 2.23 X10^3/uL (0.83-4.51); Absolute Neutrophil Count 5.2 X10^3/uL (2.0-7.7); Basophil# 0.13 X10^3/uL; Basophil% 1.5 % (0-1); Eosinophils% 3.4 % (0-5); Hematocrit 48.7 % (40-54); Hemoglobin 16.3 g/dL (13.0-16.5); Lymphocyte # 2.23 X10^3/ul (0.83-4.51); Lymphocyte % 25.4 % (19-41); Mean Corp Hgb Conc 33.5 g/dL (32-36); Mean Corpuscular Hgb 29.3 pg (27.0-32.0); Mean Corpuscular Volume 87.4 fL (80-94); Mean Platelet Vol. 9.3 fl (6.2-12.0); Monocyte# 0.81 X10^3/uL; Monocyte% 9.2 % (0-10); NRBC Flagged by Analyzer 0 % (0-5); Neutrophil # 5.24 X10^3/uL (2.7-7.7); Neutrophil % 59.6 % (47-70); Platelet Count 260 K/mm3 (150-450); RBC Distribution Width CV 12.8 % (11.6-14.6); RBC Distribution Width SD 40.9 fl (35.1-43.9); Red Blood Count 5.57 M/mm3 (4.6-6.2); White Blood Count 8.8 K/mm3 (4.4-11.0)
[2023-06-13 18:13] LABS: ALB/GLOB Ratio 1.1 RATIO (0.9-2.4); AST(SGOT) 28 U/L (15-37); Alanine Aminotransfer ALT/SGPT 61 U/L (16-61); Albumin, Serum 3.8 g/dL (3.2-5.0); Alkaline Phosphatase 52 U/L (45-117); Anion Gap 8 (5-15); BUN 21 mg/dL (7-18); BUN/Creat Ratio 24.4 RATIO (10-20); Calcium,Total 8.4 mg/dL (8.5-10.1); Chloride 105 mmol/L (98-107); Creatinine, Serum 0.86 mg/dL (0.70-1.30); EST Glomerular Filtration Rate 96 mL/min (>60); Est Glom Filt Rate - Afr Amer 117 mL/min (>60); Globulin 3.5 g/dL (2.2-4.2); Glucose 96 mg/dL (74-106); Potassium 3.4 mmol/L (3.5-5.1); Protein, Total 7.3 g/dL (6.4-8.2); Sodium Level 139 mmol/L (136-145); Thyroid Stim Hormone (TSH) 2.95 uIU/mL (0.358-3.74)
[2023-06-15 15:07] LABS: Anti-Mitochondrial AB <20.0 Units (0.0-20.0)
== END | disposition home or self-care (01) ==
LOC: MTLAB 15:41
PROVIDERS: PCP Family Medicine; Referring Provider Family Medicine; Visit Provider Family Medicine
DX: E03.9 Hypothyroidism, unspecified (principal); D75.1 Secondary polycythemia
CPT/HCPCS: 36415; 80053; 83516; 84439; 84443; 85025

== ENCOUNTER → 2023-09-26 | Outpatient (CLI) | payer OTHER, SELFPAY ==
[2023-09-26 18:45] LABS: Anion Gap 5 (5-15); BUN 22 mg/dL (7-18); BUN/Creat Ratio 21.6 RATIO (10-20); Calcium,Total 9.3 mg/dL (8.5-10.1); Chloride 102 mmol/L (98-107); Cholesterol 134 mg/dL (200); Creatinine, Serum 1.02 mg/dL (0.70-1.30); EST Glomerular Filtration Rate 79 mL/min (>60); Est Glom Filt Rate - Afr Amer 96 mL/min (>60); Glucose 95 mg/dL (74-106); High Density Lipoprotein 32 mg/dL; PSA,Total - Annual Screen 2.48 ng/mL (0.00-4.00); Sodium Level 137 mmol/L (136-145); Triglycerides 130 mg/dL; Very Low Density Lipoprotein 26 mg/dL (5-40)
== END | disposition home or self-care (01) ==
LOC: MFPLAB 15:07
PROVIDERS: PCP Family Medicine; Visit Provider Family Medicine
DX: Z13.220 Encounter for screening for lipoid disorders (principal); Z12.5 Encounter for screening for malignant neoplasm of prostate
CPT/HCPCS: 36415; 80048; 80061; 84153; G0103

== ENCOUNTER 2024-02-10 18:32 | Emergency (ER) | payer OTHER, SELFPAY ==
[2024-02-10 18:35] VITALS: BP 140/104; PULSE 130; RESP 22; TEMP 36.4; O2SAT 94; BMI 33.8
[2024-02-10 19:24] VITALS: PULSE 122
--- NOTE | 2024-02-10 19:24 | ED.RN ---
Pt thinks his panic/anxiety is worse by being here, feels that his HR has improved and believes that if he goes home it will dissipate as it has in the past. Hx anxiety and panic attacks. Pt asked to come back if it worsens.
== END 2024-02-10 19:25 | disposition left against medical advice (07) ==
LOC: ED 19:27
PROVIDERS: PCP Family Medicine
DX: Z53.21 Procedure and treatment not carried out due to patient leaving prior to being seen by health care provider (principal)